=== PATIENT | female | born 1990 | race African-American/Black ===

== ENCOUNTER → 2016-05-09 | Outpatient (CLI) | payer SELFPAY | LOC: MW.CHOBGYN 08:21 | PROVIDERS: ATTEND Nurse Practitioner Women's Health | DX: N92.0 Excessive and frequent menstruation with regular cycle (principal); R63.1 Polydipsia | CPT/HCPCS: 36415; 82947; 83001; 83002; 83036; 84144; 84443; 84703; 85025 ==

== ENCOUNTER 2020-03-23 22:55 | Inpatient (IN) | payer BC ==
[2020-03-23] MEDS ORDERED: Magnesium Sulfate (4.06 MEQ/ML) 5 GM/10 ML SDV IV STA (22:59)
[2020-03-23] MEDS ORDERED: Labetalol 100 MG/20 ML MDV IVPUSH ONE ×3 (23:04→23:56)
--- NOTE | 2020-03-23 23:05 | EDM.PDOC ---
ED HPI GENERAL MEDICAL PROBLEM - General Chief Complaint: Cardiovascular Problem Stated Complaint: HEADACHE Time Seen by Provider: 03/23/20 23:15 - History of Present Illness INITIAL COMMENTS - FREE TEXT/NARRATIVE: History of present illness: [] Review of systems: As per history of present illness and below otherwise all systems reviewed and negative. Past medical history: As per history of present illness and as reviewed below otherwise noncontributory. Having a severe headache at 8 PM tonight. She is vomited many times. Headache is diffuse and sharp and severe. She was seen by Paris Solis in the OB clinic earlier in the day and given what she thinks was nifedipine for high blood pressure. The patient has continued to feel worse since. The patient is 18 weeks . She is a AB 3. Makes her headache worse nothing makes it better. Surgical history: As per history of present illness and as reviewed below otherwise noncontributory. Social history: No reported history of drug or alcohol abuse. Family history: As per history of present illness and as reviewed below otherwise noncontributory. Physical exam: Constitutional - well developed, well-nourished and in no acute distress HEENT -neck is supple with Brudzinski sign negative normocephalic, no evidence of trauma - external nose and mouth normal - no mass in neck and no JVD - mucosae moist EYES -intense photophobia. Full EOM, PERRL, no icterus - no evidence of inflammation, injection, or drainage Respiratory - no respiratory distress, equal bilateral expansion, lungs clear to auscultation and no abnormal lung sounds Cardiovascular - Regular Rhythm with S1 and S2 appreciated and no murmur, gallop or rub. GI - abdomen soft without distension or organomegaly - normal bowel sounds - no guard or rebound Musculoskeletal no gross deformity of long bones or joints - no tenderness, swelling or edema Neurologic -bicep and patellar reflexes are not elevated alert and oriented times four - CN II-XII grossly intact - motor sensory and coordination symmetrically normal Psychiatric - appropriate mood and affect with normal thought content Hematologic - No petechiae or purpura - mucosa appropriate color and sclera not pale - normal nail bed color and refill Integument - no rash or evidence of trauma - normal turgor Diagnostics: From this morning had no protein Therapeutics: [] Impression: [] Plan: [] Definitive disposition and diagnosis as appropriate pending reevaluation and review of above. Head Pain Score (Numeric/FACES): 8 - Related Data Allergies Allergy/AdvReac Type Severity Reaction Status Date / Time No Known Allergies Allergy Verified 03/23/20 22:57 Home Meds: Home Meds NIFEdipine [Procardia] 1 cap PO BID 10/07/17 [History] Vit Calc,Iron,Folic [ Vitamins] 1 tab PO DAILY 10/07/17 [History] Aspirin 81 mg PO DAILY 03/23/20 [History] Past Medical History - Past Health History Medical/Surgical History: Denies Medical/Surgical History HEENT History: Reports: None Cardiovascular History: Reports: None Respiratory History: Reports: None Gastrointestinal History: Reports: None Genitourinary History: Reports: None GATE ATTENDANT History: Reports: None Musculoskeletal History: Reports: None Neurological History: Reports: None Psychiatric History: Reports: None Endocrine/Metabolic History: Reports: Diabetes, Gestational Hematologic History: Reports: None Immunologic History: Reports: None Oncologic (Cancer) History: Reports: None Dermatologic History: Reports: None - Infectious Disease History Infectious Disease History: Reports: None Other Infectious Disease History: HSV-1. HSV-2 - Past Surgical History Head Surgeries/Procedures: Reports: None HEENT Surgical History: Reports: None Cardiovascular Surgical History: Reports: None Female Surgical History: Reports: None Musculoskeletal Surgical History: Reports: None Dermatological Surgical History: Reports: None Social & Family History - Family History Family Medical History: No Pertinent Family History HEENT: Reports: None Cardiac: Reports: None Respiratory: Reports: None GI: Reports: None : Reports: None OBGYN: Reports: Musculoskeletal: Reports: None Psychiatric: Reports: None Oncologic: Reports: None - Caffeine Use Caffeine Use: Reports: None ED ROS GENERAL - Review of Systems Review Of Systems: Comprehensive ROS is negative, except as noted in HPI. ED EXAM, GENERAL - Physical Exam Exam: See Below #1 Interpretation EKG Interpretation Comments: KG done at 11:45 PM sinus rhythm heart rate 87. MS interval 189 QT 473. [place] XX [address] and T normal. No prior. Impression normal. Course - Vital Signs Text/Narrative:: Case discussed with Amelie Robison application technician for OB 2340 hrs. Amelie Robison from OB came and gave us her labetalol and hydralazine protocols. She said OB would not consider her -induced hypertension but an exacerbation of underlying hypertension because of the prematurity at 18 weeks. They would be willing to consult the patient is admitted to medicine. On labetalol protocol the patient would be due for 40 mg IV with a blood pressure 174 however since it came from 217 with 20 mg labetalol I am amending the treatment plan and giving her 20 mg to reassess after such a dose. 2357 hours she did not respond to the 20 mg we will give an additional 20 and then resume the protocol. 0036 After 60 mg labetalol total her BP is 175/113 ( 20% lower than mean BP on presentation) and she is asymptomatic. Discussed with OB Amelie Robison and she said not to continue Magnesium and manage as hypertension with acute exacerbation and emergency. Discussed with Dr. Prado and she most graciously admitted the patient for further evaluation, monitoring and OB follow up. This patient was seen and evaluated during the 2019 SARS-CoV-2 novel coronavirus pandemic period. Community viral transmission is ongoing at time of this encounter and the emergency department is operating under pandemic response procedures. Due to a high probability of clinically significant, life threatening deterioration, the patient required my highest level of preparedness to intervene emergently and I personally spent this critical care time directly and personally managing the patient. This critical care time included obtaining a history; examining the patient; pulse oximetry; ordering and review of studies; arranging urgent treatment with development of a management plan; evaluation of patient's response to treatment; frequent reassessment; and, discussions with other providers. This critical care time was performed to assess and manage the high probability of imminent, life-threatening deterioration that could result in multi-organ failure. It was exclusive of separately billable procedures and treating other patients and teaching time. Total critical care time 38 minutes. Last Recorded V/S: Last Vital Signs Temp 36.3 C 03/23/20 22:58 Pulse 86 03/24/20 00:17 Resp 18 03/24/20 00:17 BP 175/113 H 03/24/20 00:17 Pulse Ox 99 03/24/20 00:17 - Orders/Labs/Meds Orders: Active Orders 24 hr Category Date Time Status EKG 12 Lead [EKG Documentation Completion] [RC] STAT Care 03/23/20 23:30 Active Magnesium Sulfate/Water [Magnesium Sulfate in Water Med 03/23/20 23:15 Active Premix] 2 gm in 50 ml IV Q2H Sodium Chloride 0.9% [Saline Flush] Med 03/23/20 23:12 Active 10 ml FLUSH ASDIRECTED PRN Sodium Chloride 0.9% [Saline Flush] Med 03/23/20 23:12 Active 2.5 ml FLUSH ASDIRECTED PRN Saline Lock Insert [OM.PC] Stat Oth 03/23/20 23:12 Ordered Medication Orders Magnesium Sulfate (Magnesium Sulfate In Water Premix) 2 gm in 50 mls @ 25 mls/hr IV Q2H KEKE Stop: 03/24/20 05:14 Last Admin: 03/23/20 23:25 Dose: 25 mls/hr Documented by: MURDNIC Sodium Chloride (Saline Flush) 10 ml FLUSH ASDIRECTED PRN PRN Reason: Keep Vein Open Last Admin: 03/23/20 23:28 Dose: 10 ml Documented by: MURDNIC Sodium Chloride (Saline Flush) 2.5 ml FLUSH ASDIRECTED PRN PRN Reason: Keep Vein Open Last Admin: 03/23/20 23:28 Dose: 2.5 ml Documented by: JEREMIE Labs: Laboratory Tests 03/23/20 03/23/20 03/23/20 Range/Units 23:03 23:03 23:03 WBC 9.67 (4.0-11.0) K/uL RBC 4.99 (4.30-5.90) M/uL Hgb 11.8 L (12.0-16.0) g/dL Hct 36.1 (36.0-46.0) % MCV 72.3 L (80.0-98.0) fL MCH 23.6 L (27.0-32.0) pg MCHC 32.7 (31.0-37.0) g/dL RDW Std Deviation 40.1 (28.0-62.0) fl RDW Coeff of Patience 15 (11.0-15.0) % Plt Count 247 (150-400) K/uL MPV 10.80 (7.40-12.00) fL Neut % (Auto) 58.5 (48.0-80.0) % Lymph % (Auto) 31.4 (16.0-40.0) % [place] % (Auto) 8.3 (0.0-15.0) % Eos % (Auto) 1.7 (0.0-7.0) % Baso % (Auto) 0.1 (0.0-1.5) % Neut # (Auto) 5.7 (1.4-5.7) K/uL Lymph # (Auto) 3.0 H (0.6-2.4) K/uL [place] # (Auto) 0.8 (0.0-0.8) K/uL Eos # (Auto) 0.2 (0.0-0.7) K/uL Baso # (Auto) 0.0 (0.0-0.1) K/uL Nucleated RBC % 1.1 /100WBC Nucleated RBCs # 0 K/uL Sodium 140 (136-145) mmol/L Potassium 3.5 (3.5-5.1) mmol/L Chloride 105 (98-107) mmol/L Carbon Dioxide 23.4 (21.0-32.0) mmol/L BUN 6 L (7.0-18.0) mg/dL Creatinine 0.6 (0.6-1.0) mg/dL Est Cr Clr Drug Dosing 122.25 mL/min Estimated GFR (MDRD) > 60.0 ml/min Glucose 105 (74-106) mg/dL Calcium 9.1 (8.5-10.1) mg/dL Magnesium 2.0 (1.8-2.4) mg/dL Total Bilirubin 0.2 (0.2-1.0) mg/dL AST 15 (15-37) IU/L ALT 18 (14-63) IU/L Alkaline Phosphatase 71 (46-116) U/L Troponin I < 0.050 (0.000-0.056) ng/mL Total Protein 7.9 (6.4-8.2) g/dL Albumin 3.4 (3.4-5.0) g/dL Globulin 4.5 H (2.6-4.0) g/dL Albumin/Globulin Ratio 0.8 L (0.9-1.6) Urine Color Urine Appearance Urine pH (5.0-8.0) Ur Specific [place] (1.001-1.035) Urine Protein (NEGATIVE) mg/dL Urine Glucose (UA) (NEGATIVE) mg/dL Urine Ketones (NEGATIVE) mg/dL Urine Occult Blood (NEGATIVE) Urine Nitrite (NEGATIVE) Urine Bilirubin (NEGATIVE) Urine Urobilinogen (<2.0) EU/dL Ur Leukocyte Esterase (NEGATIVE) Urine RBC (0-2/HPF) Urine WBC (0-5/HPF) Ur Epithelial Cells (NONE-FEW) Amorphous Sediment (NEGATIVE) Urine Bacteria (NEGATIVE) Urine Mucus (NONE-MOD) SARS-CoV-2 RNA (JUANJO) (NEGATIVE) 03/23/20 03/23/20 Range/Units 23:14 23:31 WBC (4.0-11.0) K/uL RBC (4.30-5.90) M/uL Hgb (12.0-16.0) g/dL Hct (36.0-46.0) % MCV (80.0-98.0) fL MCH (27.0-32.0) pg MCHC (31.0-37.0) g/dL RDW Std Deviation (28.0-62.0) fl RDW Coeff of Patience (11.0-15.0) % Plt Count (150-400) K/uL MPV (7.40-12.00) fL Neut % (Auto) (48.0-80.0) % Lymph % (Auto) (16.0-40.0) % [place] % (Auto) (0.0-15.0) % Eos % (Auto) (0.0-7.0) % Baso % (Auto) (0.0-1.5) % Neut # (Auto) (1.4-5.7) K/uL Lymph # (Auto) (0.6-2.4) K/uL [place] # (Auto) (0.0-0.8) K/uL Eos # (Auto) (0.0-0.7) K/uL Baso # (Auto) (0.0-0.1) K/uL Nucleated RBC % /100WBC Nucleated RBCs # K/uL Sodium (136-145) mmol/L Potassium (3.5-5.1) mmol/L Chloride (98-107) mmol/L Carbon Dioxide (21.0-32.0) mmol/L BUN (7.0-18.0) mg/dL Creatinine (0.6-1.0) mg/dL Est Cr Clr Drug Dosing mL/min Estimated GFR (MDRD) ml/min Glucose (74-106) mg/dL Calcium (8.5-10.1) mg/dL Magnesium (1.8-2.4) mg/dL Total Bilirubin (0.2-1.0) mg/dL AST (15-37) IU/L ALT (14-63) IU/L Alkaline Phosphatase (46-116) U/L Troponin I (0.000-0.056) ng/mL Total Protein (6.4-8.2) g/dL Albumin (3.4-5.0) g/dL Globulin (2.6-4.0) g/dL Albumin/Globulin Ratio (0.9-1.6) Urine Color YELLOW Urine Appearance SLT CLOUDY Urine pH 8.0 (5.0-8.0) Ur Specific [place] 1.025 (1.001-1.035) Urine Protein 30 H (NEGATIVE) mg/dL Urine Glucose (UA) 100 H (NEGATIVE) mg/dL Urine Ketones NEGATIVE (NEGATIVE) mg/dL Urine Occult Blood TRACE-INTACT H (NEGATIVE) Urine Nitrite NEGATIVE (NEGATIVE) Urine Bilirubin NEGATIVE (NEGATIVE) Urine Urobilinogen 0.2 (<2.0) EU/dL Ur Leukocyte Esterase NEGATIVE (NEGATIVE) Urine RBC 2-4 (0-2/HPF) Urine WBC 1-3 (0-5/HPF) Ur Epithelial Cells MODERATE (NONE-FEW) Amorphous Sediment MODERATE (NEGATIVE) Urine Bacteria 4+ H (NEGATIVE) Urine Mucus MODERATE (NONE-MOD) SARS-CoV-2 RNA (JUANJO) NEGATIVE (NEGATIVE) Meds: Medications Generic Name Dose Route Start Last Admin Trade Name Freq PRN Reason Stop Dose Admin Magnesium Sulfate 2 gm in 50 mls @ 25 mls/hr 03/23/20 23:15 03/23/20 23:25 Magnesium Sulfate In Water Premix IV 03/24/20 05:14 25 mls/hr Q2H KEKE Administration Sodium Chloride 10 ml 03/23/20 23:12 03/23/20 23:28 Saline Flush FLUSH 10 ml ASDIRECTED PRN Administration Keep Vein Open Sodium Chloride 2.5 ml 03/23/20 23:12 03/23/20 23:28 Saline Flush FLUSH 2.5 ml ASDIRECTED PRN Administration Keep Vein Open Discontinued Medications Generic Name Dose Route Start Last Admin Trade Name Freq PRN Reason Stop Dose Admin Hydralazine HCl 10 mg 03/23/20 23:13 03/23/20 23:24 Apresoline IVPUSH 03/23/20 23:14 Not Given ONETIME ONE Magnesium Sulfate 5 gm/ Sodium 60 mls @ 24 mls/hr 03/23/20 23:15 Chloride IV ASDIRECTED KEKE 2 GM/HR Labetalol HCl 20 mg 03/23/20 23:04 03/23/20 23:12 Normodyne IVPUSH 03/23/20 23:05 20 mg ONETIME ONE Administration Protocol Labetalol HCl 20 mg 03/23/20 23:39 03/23/20 23:42 Normodyne IVPUSH 03/23/20 23:40 20 mg ONETIME ONE Administration Protocol Labetalol HCl 20 mg 03/23/20 23:56 03/24/20 00:01 Normodyne IVPUSH 03/23/20 23:57 20 mg ONETIME ONE Administration Protocol Metoclopramide HCl 10 mg 03/23/20 23:32 03/23/20 23:42 Reglan IVPUSH 03/23/20 23:33 10 mg ONETIME ONE Administration Departure - Departure Time of Disposition: 00:50 Disposition: Admitted As Inpatient 64 Condition: Good Clinical Impression: Hypertensive emergency, Complication affecting intrauterine Referrals: PCP,None [Primary Care Provider] - Forms: ED Department Discharge Sepsis Event Note (ED) - Focused Exam Vital Signs: Vital Signs Temp Pulse Resp BP Pulse Ox 03/24/20 00:17 86 18 175/113 H 99 03/24/20 00:11 85 16 172/110 H 98 03/23/20 23:55 93 16 179/109 H 99 03/23/20 23:39 88 16 174/111 H 97 03/23/20 23:13 100 20 193/145 H 99 03/23/20 22:58 36.3 C 95 20 219/137 H 99 - My Orders Last 24 Hours: My Active Orders 03/23/20 23:12 Sodium Chloride 0.9% [Saline Flush] 10 ml FLUSH ASDIRECTED PRN Sodium Chloride 0.9% [Saline Flush] 2.5 ml FLUSH ASDIRECTED PRN Saline Lock Insert [OM.PC] Stat 03/23/20 23:15 Magnesium Sulfate/Water [Magnesium Sulfate in Water Premix] 2 gm in 50 ml IV Q2H 03/23/20 23:30 EKG 12 Lead [EKG Documentation Completion] [RC] STAT - Assessment/Plan Last 24 Hours: My Active Orders 03/23/20 23:12 Sodium Chloride 0.9% [Saline Flush] 10 ml FLUSH ASDIRECTED PRN Sodium Chloride 0.9% [Saline Flush] 2.5 ml FLUSH ASDIRECTED PRN Saline Lock Insert [OM.PC] Stat 03/23/20 23:15 Magnesium Sulfate/Water [Magnesium Sulfate in Water Premix] 2 gm in 50 ml IV Q2H 03/23/20 23:30 EKG 12 Lead [EKG Documentation Completion] [RC] STAT
[2020-03-23] MEDS ORDERED: Sodium Chloride 0.9% 2.5 ML Syringe FLUSH PRN (23:12)
[2020-03-23] MEDS ORDERED: Sodium Chloride 0.9% 10 ML Syringe FLUSH PRN (23:12)
[2020-03-23] MEDS ORDERED: hydrALAZINE 20 MG/ML SDV IVPUSH ONE (23:13)
[2020-03-23] MEDS ORDERED: MAGNESIUM SULFATE IV SCH (23:15)
[2020-03-23] MEDS ORDERED: SODIUM CHLORIDE 0.9% IV SCH (23:15)
[2020-03-23] MEDS: Magnesium Sulfate/Water 2 GM/50 ML BAG IV SCH (23:25)
[2020-03-23] MEDS ORDERED: Metoclopramide 10 MG/2 ML SDV IVPUSH ONE (23:32)
[2020-03-23 23:35] LABS: BLOOD UREA NITROGEN,BUN 6 mg/dL (7.0-18.0); CARBON DIOXIDE,CO2 23.4 mmol/L (21.0-32.0); CHLORIDE,CL 105 mmol/L (98-107); GLUCOSE RANDOM 105 mg/dL (74-106); POTASSIUM,K 3.5 mmol/L (3.5-5.1); SODIUM,NA 140 mmol/L (136-145)
--- NOTE | 2020-03-24 00:05 | CR ---
INDICATION: hypertensive emergency, 18 weeks CHEST, ONE VIEW An AP radiograph of the chest was performed. Comparison: No previous studies are currently available for comparison. The lungs appear clear and no pleural effusions are identified. The cardiomediastinal silhouette and pulmonary vasculature appear normal, as do the visualized bones. IMPRESSION: No acute intrathoracic abnormality identified. CRISTIANO MALONE MD [facility] Dictated by: Gerry Malone MD @ 03/24/2020 00:04:00 (Electronically Signed)
[2020-03-24] MEDS ORDERED: Acetaminophen 500 MG Tab PO ONE (01:02)
[2020-03-24] MEDS: Magnesium Sulfate/Water 2 GM/50 ML BAG IV SCH ×2 (01:10→03:46)
[2020-03-24] MEDS ORDERED: Labetalol 100 MG/20 ML MDV IVPUSH PRN (01:34)
[2020-03-24] MEDS ORDERED: Ondansetron 4 MG/2 ML SDV IVPUSH PRN (01:35)
[2020-03-24] MEDS ORDERED: Labetalol 100 MG/20 ML MDV IVPUSH ONE (01:39)
[2020-03-24 06:58] LABS: BLOOD UREA NITROGEN,BUN 6 mg/dL (7.0-18.0); CARBON DIOXIDE,CO2 22.7 mmol/L (21.0-32.0); CHLORIDE,CL 105 mmol/L (98-107); GLUCOSE RANDOM 111 mg/dL (74-106); POTASSIUM,K 3.5 mmol/L (3.5-5.1); SODIUM,NA 139 mmol/L (136-145)
--- NOTE | 2020-03-24 08:24 | PCM.HP.2 ---
H&P History of Present Illness - General Date of Service: 03/24/20 Admit Problem/Dx: Admission Diagnosis/Problem Admission Diagnosis/Problem "Hypertensive disorder, systemic arterial " Source of Information: Patient History Limitations: Reports: No Limitations - History of Present Illness Initial Comments - Free Text/Narative: This 29-year-old female with past medical history of obesity, gestational diabetes and history of preeclampsia with precipitous delivery along with uncontrolled hypertension presented to ER last night with complaints of visual changes and headache. She has been in contact with OB provider as she is 16 weeks . She has been placed on Procardia 90 mg daily along with 81 mg aspirin daily and vitamin. She reports the headache continue to worsen along with visual changes and nausea so she was urged to present to the ER for evaluation. She reports that she does usually have some blood pressure issues mostly with and reports that when she is not she does not have troubles with hypertension. She reports has been having significant stressors at home but unwilling to really indulge if she is going on. Reported she needs to put herself needs prior to others and taking care of herself. She denied any chest pain or shortness of breath no fevers chills neck pain or sinus congestion. She does report frontal headache blurred vision has improved since arrival. She denies any abdominal pain or dysuria. She denies any diarrhea or black or bloody bowel movements. In the ER lab work was essentially normal UA did show some positive blood positive protein 4+ bacteria but the sample appeared to be contaminated, With moderate epithelial cells, negative leukocyte esterase and negative nitrites. No SARAH noted. Drug screen negative Covid swab negative. Chest x-ray negative. EKG sinus rhythm heart rate in the 80s no ST or T wave abnormalities. She was initially treated with bolus of magnesium along with magnesium drip she is given labetalol for blood pressures in excess of 215/110. OB senior property accountant on-call was notified and encouraged them to stop magnesium drip as this was not indicated for a patient under 20 weeks. She was continued to give labetalol which did eventually drop her blood pressure to 170s over 90s. With this headache did improve and she was admitted to the hospitalist service for hypertensive emergency. Head Pain Score (Numeric/FACES): 8 - Related Data Allergies/Adverse Reactions: Allergies Allergy/AdvReac Type Severity Reaction Status Date / Time No Known Allergies Allergy Verified 03/24/20 02:09 Home Medications: Home Meds NIFEdipine [Procardia] 1 cap PO BID 10/07/17 [History] Vit Calc,Iron,Folic [ Vitamins] 1 tab PO DAILY 10/07/17 [History] Aspirin 81 mg PO DAILY 03/23/20 [History] Past Medical History - Past Health History Medical/Surgical History: Denies Medical/Surgical History HEENT History: Reports: None Cardiovascular History: Reports: Hypertension Respiratory History: Reports: None Gastrointestinal History: Reports: None Genitourinary History: Reports: None [employer]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 HSV-2 - Past Surgical History Head Surgeries/Procedures: Reports: None HEENT Surgical History: Reports: None Cardiovascular Surgical History: Reports: None Female Surgical History: Reports: None Musculoskeletal Surgical History: Reports: None Dermatological Surgical History: Reports: None Social & Family History - Family History Family Medical History: No Pertinent Family History HEENT: Reports: None Cardiac: Reports: None Respiratory: Reports: None GI: Reports: None : Reports: None OBGYN: Reports: Musculoskeletal: Reports: None Psychiatric: Reports: None Oncologic: Reports: None - Tobacco Use Tobacco Use Status *Q: Never Tobacco User Tobacco Use Comment: Pt drowsy, falling asleep during admission assessment - Caffeine Use Caffeine Use: Reports: None Caffeine Use Comment: Pt drowsy, falling asleep during admission assessment - Recreational Drug Use Recreational Drug Use: No H&P Review of Systems - Review of Systems: Review Of Systems: See Below General: Reports: No Symptoms. Denies: Fever, Chills, Malaise, Decreased Appetite HEENT: Reports: Headaches (Frontal with intermittent photophobia and blurred vision the blurred vision has improved), Visual Changes (Blurred vision has now improved) Pulmonary: Reports: No Symptoms. Denies: Shortness of Breath Cardiovascular: Reports: No Symptoms. Denies: Chest Pain Gastrointestinal: Reports: No Symptoms. Denies: Abdominal Pain, Black Stool, Bloody Stool, Decreased Appetite, Nausea, Vomiting Genitourinary: Reports: No Symptoms. Denies: Dysuria, Frequency Musculoskeletal: Reports: No Symptoms Skin: Reports: No Symptoms Psychiatric: Reports: No Symptoms Neurological: Reports: No Symptoms Hematologic/Lymphatic: Reports: No Symptoms Immunologic: Reports: No Symptoms Exam - Exam Exam: See Below - Vital Signs Vital Signs: Last Vital Signs Temp 98.3 F 03/24/20 08:18 Pulse 93 03/24/20 08:18 Resp 20 03/24/20 08:18 BP 171/88 H 03/24/20 08:18 Pulse Ox 99 03/24/20 08:18 Weight: 111.811 kg - Exam Quality Assessment: DVT Prophylaxis (SCDs only). No: Supplemental Oxygen General: Alert, Oriented, Cooperative HEENT: Conjunctiva Clear, Mucosa Moist & Enetai, Posterior Pharynx Clear, Pupils Equal, Pupils Reactive Neck: Supple, Trachea Midline Lungs: Clear to Auscultation, Normal Respiratory Effort Cardiovascular: Regular Rate, Regular Rhythm GI/Abdominal Exam: Normal Bowel Sounds, Soft, Non-Tender Extremities: Normal Inspection, Normal Range of Motion, Non-Tender, No Pedal Edema Neuro Extensive - Mental Status: Alert, Oriented x3 Neuro Extensive - Motor, Sensory, Reflexes: CN II-XII Intact Psychiatric: Alert, Normal Affect, Normal Mood - Patient Data Lab Results Last 24 hrs: Laboratory Results - last 24 hr 03/23/20 03/23/20 03/23/20 Range/Units 23:03 23:03 23:03 WBC 9.67 (4.0-11.0) K/uL RBC 4.99 (4.30-5.90) M/uL Hgb 11.8 L (12.0-16.0) g/dL Hct 36.1 (36.0-46.0) % MCV 72.3 L (80.0-98.0) fL MCH 23.6 L (27.0-32.0) pg MCHC 32.7 (31.0-37.0) g/dL RDW Std Deviation 40.1 (28.0-62.0) fl RDW Coeff of Patience 15 (11.0-15.0) % Plt Count 247 (150-400) K/uL MPV 10.80 (7.40-12.00) fL Neut % (Auto) 58.5 (48.0-80.0) % Lymph % (Auto) 31.4 (16.0-40.0) % [place] % (Auto) 8.3 (0.0-15.0) % Eos % (Auto) 1.7 (0.0-7.0) % Baso % (Auto) 0.1 (0.0-1.5) % Neut # (Auto) 5.7 (1.4-5.7) K/uL Lymph # (Auto) 3.0 H (0.6-2.4) K/uL [place] # (Auto) 0.8 (0.0-0.8) K/uL Eos # (Auto) 0.2 (0.0-0.7) K/uL Baso # (Auto) 0.0 (0.0-0.1) K/uL Nucleated RBC % 1.1 /100WBC Nucleated RBCs # 0 K/uL Sodium 140 (136-145) mmol/L Potassium 3.5 (3.5-5.1) mmol/L Chloride 105 (98-107) mmol/L Carbon Dioxide 23.4 (21.0-32.0) mmol/L BUN 6 L (7.0-18.0) mg/dL Creatinine 0.6 (0.6-1.0) mg/dL Est Cr Clr Drug Dosing 122.25 mL/min Estimated GFR (MDRD) > 60.0 ml/min Glucose 105 (74-106) mg/dL Calcium 9.1 (8.5-10.1) mg/dL Phosphorus (2.6-4.7) mg/dL Magnesium 2.0 (1.8-2.4) mg/dL Total Bilirubin 0.2 (0.2-1.0) mg/dL AST 15 (15-37) IU/L ALT 18 (14-63) IU/L Alkaline Phosphatase 71 (46-116) U/L Troponin I < 0.050 (0.000-0.056) ng/mL Total Protein 7.9 (6.4-8.2) g/dL Albumin 3.4 (3.4-5.0) g/dL Globulin 4.5 H (2.6-4.0) g/dL Albumin/Globulin Ratio 0.8 L (0.9-1.6) Triglycerides (0-200) mg/dL Cholesterol (50-200) mg/dL LDL Cholesterol, Calc (60-180) mg/dL VLDL Cholesterol (5-55) mg/dL HDL Cholesterol (40-60) mg/dL Cholesterol/HDL Ratio (3.3-6.0) TSH 3rd Generation (0.36-3.74) uIU/mL Urine Color Urine Appearance Urine pH (5.0-8.0) Ur Specific [place] (1.001-1.035) Urine Protein (NEGATIVE) mg/dL Urine Glucose (UA) (NEGATIVE) mg/dL Urine Ketones (NEGATIVE) mg/dL Urine Occult Blood (NEGATIVE) Urine Nitrite (NEGATIVE) Urine Bilirubin (NEGATIVE) Urine Urobilinogen (<2.0) EU/dL Ur Leukocyte Esterase (NEGATIVE) Urine RBC (0-2/HPF) Urine WBC (0-5/HPF) Ur Epithelial Cells (NONE-FEW) Amorphous Sediment (NEGATIVE) Urine Bacteria (NEGATIVE) Urine Mucus (NONE-MOD) SARS-CoV-2 RNA (JUANJO) (NEGATIVE) 03/23/20 03/23/20 03/24/20 Range/Units 23:14 23:31 05:54 WBC 10.51 (4.0-11.0) K/uL RBC 4.86 (4.30-5.90) M/uL Hgb 11.2 L (12.0-16.0) g/dL Hct 35.5 L (36.0-46.0) % MCV 73.0 L (80.0-98.0) fL MCH 23.0 L (27.0-32.0) pg MCHC 31.5 (31.0-37.0) g/dL RDW Std Deviation 40.4 (28.0-62.0) fl RDW Coeff of Patience 15 (11.0-15.0) % Plt Count 260 (150-400) K/uL MPV 10.70 (7.40-12.00) fL Neut % (Auto) 68.0 (48.0-80.0) % Lymph % (Auto) 24.9 (16.0-40.0) % [place] % (Auto) 6.4 (0.0-15.0) % Eos % (Auto) 0.5 (0.0-7.0) % Baso % (Auto) 0.2 (0.0-1.5) % Neut # (Auto) 7.2 H (1.4-5.7) K/uL Lymph # (Auto) 2.6 H (0.6-2.4) K/uL [place] # (Auto) 0.7 (0.0-0.8) K/uL Eos # (Auto) 0.1 (0.0-0.7) K/uL Baso # (Auto) 0.0 (0.0-0.1) K/uL Nucleated RBC % 0.0 /100WBC Nucleated RBCs # 0 K/uL Sodium (136-145) mmol/L Potassium (3.5-5.1) mmol/L Chloride (98-107) mmol/L Carbon Dioxide (21.0-32.0) mmol/L BUN (7.0-18.0) mg/dL Creatinine (0.6-1.0) mg/dL Est Cr Clr Drug Dosing mL/min Estimated GFR (MDRD) ml/min Glucose (74-106) mg/dL Calcium (8.5-10.1) mg/dL Phosphorus (2.6-4.7) mg/dL Magnesium (1.8-2.4) mg/dL Total Bilirubin (0.2-1.0) mg/dL AST (15-37) IU/L ALT (14-63) IU/L Alkaline Phosphatase (46-116) U/L Troponin I (0.000-0.056) ng/mL Total Protein (6.4-8.2) g/dL Albumin (3.4-5.0) g/dL Globulin (2.6-4.0) g/dL Albumin/Globulin Ratio (0.9-1.6) Triglycerides (0-200) mg/dL Cholesterol (50-200) mg/dL LDL Cholesterol, Calc (60-180) mg/dL VLDL Cholesterol (5-55) mg/dL HDL Cholesterol (40-60) mg/dL Cholesterol/HDL Ratio (3.3-6.0) TSH 3rd Generation (0.36-3.74) uIU/mL Urine Color YELLOW Urine Appearance SLT CLOUDY Urine pH 8.0 (5.0-8.0) Ur Specific [place] 1.025 (1.001-1.035) Urine Protein 30 H (NEGATIVE) mg/dL Urine Glucose (UA) 100 H (NEGATIVE) mg/dL Urine Ketones NEGATIVE (NEGATIVE) mg/dL Urine Occult Blood TRACE-INTACT H (NEGATIVE) Urine Nitrite NEGATIVE (NEGATIVE) Urine Bilirubin NEGATIVE (NEGATIVE) Urine Urobilinogen 0.2 (<2.0) EU/dL Ur Leukocyte Esterase NEGATIVE (NEGATIVE) Urine RBC 2-4 (0-2/HPF) Urine WBC 1-3 (0-5/HPF) Ur Epithelial Cells MODERATE (NONE-FEW) Amorphous Sediment MODERATE (NEGATIVE) Urine Bacteria 4+ H (NEGATIVE) Urine Mucus MODERATE (NONE-MOD) SARS-CoV-2 RNA (JUANJO) NEGATIVE (NEGATIVE) 03/24/20 Range/Units 05:54 WBC (4.0-11.0) K/uL RBC (4.30-5.90) M/uL Hgb (12.0-16.0) g/dL Hct (36.0-46.0) % MCV (80.0-98.0) fL MCH (27.0-32.0) pg MCHC (31.0-37.0) g/dL RDW Std Deviation (28.0-62.0) fl RDW Coeff of Patience (11.0-15.0) % Plt Count (150-400) K/uL MPV (7.40-12.00) fL Neut % (Auto) (48.0-80.0) % Lymph % (Auto) (16.0-40.0) % [place] % (Auto) (0.0-15.0) % Eos % (Auto) (0.0-7.0) % Baso % (Auto) (0.0-1.5) % Neut # (Auto) (1.4-5.7) K/uL Lymph # (Auto) (0.6-2.4) K/uL [place] # (Auto) (0.0-0.8) K/uL Eos # (Auto) (0.0-0.7) K/uL Baso # (Auto) (0.0-0.1) K/uL Nucleated RBC % /100WBC Nucleated RBCs # K/uL Sodium 139 (136-145) mmol/L Potassium 3.5 (3.5-5.1) mmol/L Chloride 105 (98-107) mmol/L Carbon Dioxide 22.7 (21.0-32.0) mmol/L BUN 6 L (7.0-18.0) mg/dL Creatinine 0.6 (0.6-1.0) mg/dL Est Cr Clr Drug Dosing 122.25 mL/min Estimated GFR (MDRD) > 60.0 ml/min Glucose 111 H (74-106) mg/dL Calcium 8.8 (8.5-10.1) mg/dL Phosphorus 3.6 (2.6-4.7) mg/dL Magnesium 3.2 H (1.8-2.4) mg/dL Total Bilirubin (0.2-1.0) mg/dL AST (15-37) IU/L ALT (14-63) IU/L Alkaline Phosphatase (46-116) U/L Troponin I (0.000-0.056) ng/mL Total Protein (6.4-8.2) g/dL Albumin (3.4-5.0) g/dL Globulin (2.6-4.0) g/dL Albumin/Globulin Ratio (0.9-1.6) Triglycerides 50 (0-200) mg/dL Cholesterol 115 (50-200) mg/dL LDL Cholesterol, Calc 42 L (60-180) mg/dL VLDL Cholesterol 10 (5-55) mg/dL HDL Cholesterol 63 H (40-60) mg/dL Cholesterol/HDL Ratio 1.8 L (3.3-6.0) TSH 3rd Generation 3.18 (0.36-3.74) uIU/mL Urine Color Urine Appearance Urine pH (5.0-8.0) Ur Specific [place] (1.001-1.035) Urine Protein (NEGATIVE) mg/dL Urine Glucose (UA) (NEGATIVE) mg/dL Urine Ketones (NEGATIVE) mg/dL Urine Occult Blood (NEGATIVE) Urine Nitrite (NEGATIVE) Urine Bilirubin (NEGATIVE) Urine Urobilinogen (<2.0) EU/dL Ur Leukocyte Esterase (NEGATIVE) Urine RBC (0-2/HPF) Urine WBC (0-5/HPF) Ur Epithelial Cells (NONE-FEW) Amorphous Sediment (NEGATIVE) Urine Bacteria (NEGATIVE) Urine Mucus (NONE-MOD) SARS-CoV-2 RNA (JUANJO) (NEGATIVE) Result Diagrams: 03/24/20 05:54 03/24/20 05:54 Sepsis Event Note - Evaluation Sepsis Screening Result: No Definite Risk - Focused Exam Vital Signs: Vital Signs Temp Pulse Resp BP Pulse Ox Pulse Ox 03/24/20 08:18 98.3 F 93 20 171/88 H 99 03/24/20 05:14 98.4 F 94 16 144/89 H 97 03/24/20 02:00 98.7 F 90 18 142/86 H 97 97 03/24/20 01:46 89 16 174/118 H 99 03/24/20 01:03 88 16 164/101 H 98 03/24/20 00:31 86 18 175/109 H 100 03/24/20 00:17 86 18 175/113 H 99 03/24/20 00:11 85 16 172/110 H 98 03/23/20 23:55 93 16 179/109 H 99 03/23/20 23:39 88 16 174/111 H 97 03/23/20 23:13 100 20 193/145 H 99 03/23/20 22:58 97.4 F 95 20 219/137 H 99 - Problem List (1) Hypertensive emergency SNOMED Code(s): 999289061557850 ICD Code: I16.1 - HYPERTENSIVE EMERGENCY Status: Acute Priority: High Current Visit: Yes (2) Gestational diabetes SNOMED Code(s): 45743543 ICD Code: O24.419 - GESTATIONAL DIABETES MELLITUS IN , UNSP CONTROL Status: Chronic Current Visit: Yes (3) 16 weeks gestation of SNOMED Code(s): 63421191 ICD Code: Z3A.16 - 16 WEEKS GESTATION OF Status: Acute Priority: High Current Visit: Yes (4) Chronic hypertension affecting SNOMED Code(s): 50987639 ICD Code: O10.919 - UNSP PRE-EXISTING HTN COMP , UNSP TRIMESTER Status: Chronic Priority: High Current Visit: Yes (5) Obesity SNOMED Code(s): 944495859, 585198365 ICD Code: E66.9 - OBESITY, UNSPECIFIED Status: Chronic Priority: High Current Visit: Yes Qualifiers: Obesity classification: adult class 3 (BMI >= 40) Serious obesity comorbidity presence: with serious comorbidity Body mass index: BMI 40.0-44.9 Problem List Initiated/Reviewed/Updated: Yes Orders Last 24hrs: Active Orders 24 hr Category Date Time Status Admission Status [Patient Status] [ADT] Stat ADT 03/24/20 00:41 Active Cardiac Monitoring [RC] . DIRECTED Care 03/24/20 00:41 Active EKG 12 Lead [EKG Documentation Completion] [RC] STAT Care 03/23/20 23:30 Active Notify Provider Consults [RC] ASDIRECTED Care 03/24/20 00:44 Active Oxygen Therapy [RC] ASDIRECTED Care 03/24/20 01:33 Active Telemetry Monitoring [Cardiac Monitoring] [RC] Q8H Care 03/24/20 00:35 Active Vital Signs [RC] Q3H Care 03/24/20 01:32 Active Consult to Physician [CONS] Stat Cons 03/24/20 00:42 Active Cardiac [Heart Healthy Diet] [DIET] Diet 03/24/20 Breakfast Active Labetalol [Normodyne] Med 03/24/20 01:34 Active 20 mg IVPUSH Q4H PRN Ondansetron [Zofran] Med 03/24/20 01:35 Active 4 mg IVPUSH Q4H PRN Sodium Chloride 0.9% [Saline Flush] Med 03/23/20 23:12 Active 10 ml FLUSH ASDIRECTED PRN Sodium Chloride 0.9% [Saline Flush] Med 03/23/20 23:12 Active 2.5 ml FLUSH ASDIRECTED PRN Saline Lock Insert [OM.PC] Stat Oth 03/23/20 23:12 Ordered Medication Orders Labetalol HCl (Normodyne) 20 mg IVPUSH Q4H PRN; Protocol PRN Reason: Hypertension Ondansetron HCl (Zofran) 4 mg IVPUSH Q4H PRN PRN Reason: Nausea/Vomiting Sodium Chloride (Saline Flush) 10 ml FLUSH ASDIRECTED PRN PRN Reason: Keep Vein Open Last Admin: 03/23/20 23:28 Dose: 10 ml Documented by: JEREMIE Sodium Chloride (Saline Flush) 2.5 ml FLUSH ASDIRECTED PRN PRN Reason: Keep Vein Open Last Admin: 03/23/20 23:28 Dose: 2.5 ml Documented by: MURROSMERY Assessment/Plan Comment:: This 29-year-old female admitted with hypertensive emergency noted to be 16 5/7 weeks gestation 1. Hypertensive emergency -Treated with labetalol IV in the ER along with magnesium -OB on-call Amelie Robison senior property accountant was consulted along with Dr. Red. We appreciate their assistance with this patient -Start labetalol 200 mg twice daily orally and monitor blood pressure and symptoms -Labetalol as needed IV for blood pressures greater than 160/110 -Restart aspirin 81 mg daily -Tylenol for headache may also consider Fioricet if migraine. 2. , 16 5/7 weeks gestation -Orders per OB providers -Start collecting 24-hour urine for protein detection 3. UTI -First sample appeared to be contaminated, second sample much improved -Macrobid per OB -We will continue to monitor VTE prophylaxis: SCDs CODE STATUS; full code Dispo; 1 to 2 days depending on improvement.
[2020-03-24] MEDS: Labetalol 100 MG Tab PO SCH ×2 (09:00→21:15)
[2020-03-24] MEDS ORDERED: NIFEdipine 10 MG Cap PO SCH (09:00)
--- NOTE | 2020-03-24 10:05 | PCM.CONS ---
H&P History of Present Illness - General Date of Service: 03/23/20 (2600) Admit Problem/Dx: Admission Diagnosis/Problem Admission Diagnosis/Problem "Hypertensive disorder, systemic arterial " Ob-Natural Resource Technician consult from ED was conducted 03/23/2020 at ~ 2320 regarding care of the following patient: Dayana is a 29 yo 103 at 16+5 weeks gestation (NI(LMP) 09/02/2020) that presents to ED this evening (03/23/2020) with C/O BRAMBILA, visual changes, nausea, and severe range blood pressures of 210s/130s. Denied movement, appropriate for gestation. Denied LOF, uterine pain, james vaginal bleeding. O pos, Ab screen neg, RI, GBS unkown. Pertinent medical history includes: morbid obesity (pre- BMI 40.3), pre-diabetes, H/O GDM, H/O pre-eclampsia with precipitous delivery, uncontrolled CHTN, at 35+ wks gestation, HSV1, HSV2. NKDA. Medications: PNV daily, 90 mg procardia daily, 81 mg aspirin daily, valacyclvir PRN for outbreaks. Patient was seen in clinic earlier today for F/U regarding CHTN control. BPs 160s/100s with C/O H/A and some abdominal pain at that time. Over current course, patient recurrently directed to ED for assessment and emergent control of severe range BPs, but patient declined ED visits due to financial and socioeconomic strain. Dr. Red consulted, regimen was increased from 60mg to 90 mg procardia at that time. Initial labs completed 02/10/2020 and 02/24/2020. All baseline labs WNL and unremarkable except notable proteinuria consistent with CHTN. Hgb 11.6; Hct 36.6; Platelets 265; UA neg; random glucose 69; A1c 5.9 GFR >60; random urine protein 19.9; serum creatinine 0.7; BUN 8; AST 10; ALT 21; Alk Phos 62; UDS neg. 24-hr baseline urine protein ordered 02/24/2020, but not completed. Baseline EKG was planned for F/U visit. Anatomy US scheduled for 04/20/2020 at 11 am. Upon CNM presentation to ED, 6 gram magnesium sulfate bolus was already administered, BPs still in severe range per MD. All labs WNL and unremarkable except notable proteinuria consistent with , CHTN, obesity, and pre- diabetes. Hgb 11.8; Hct 36.1; Platelets 247;random glucose 105; GFR >60; serum creatinine 0.6; BUN 6; AST 15; ALT 18. UA + bacteria, + blood, + protein indicating new onset UTI in . UDS neg. Source of Information: Other (Consulted ED MD) Head Pain Score (Numeric/FACES): 5 - Related Data Allergies/Adverse Reactions: Allergies Allergy/AdvReac Type Severity Reaction Status Date / Time No Known Allergies Allergy Verified 03/24/20 02:09 Home Medications: Home Meds NIFEdipine [Procardia] 1 cap PO BID 10/07/17 [History] Vit Calc,Iron,Folic [ Vitamins] 1 tab PO DAILY 10/07/17 [History] Aspirin 81 mg PO DAILY 03/23/20 [History] Past Medical History - Past Health History Medical/Surgical History: Denies Medical/Surgical History HEENT History: Reports: None Cardiovascular History: Reports: Hypertension Respiratory History: Reports: None Gastrointestinal History: Reports: None Genitourinary History: Reports: None POWDERER History: Reports: Musculoskeletal History: Reports: None Neurological History: Reports: None Psychiatric History: Reports: None Endocrine/Metabolic History: Reports: Diabetes, Gestational Hematologic History: Reports: None Immunologic History: Reports: None Oncologic (Cancer) History: Reports: None Dermatologic History: Reports: None - Infectious Disease History Infectious Disease History: Reports: None Other Infectious Disease History: HSV-1. HSV-2 - Past Surgical History Head Surgeries/Procedures: Reports: None HEENT Surgical History: Reports: None Cardiovascular Surgical History: Reports: None Female Surgical History: Reports: None Musculoskeletal Surgical History: Reports: None Dermatological Surgical History: Reports: None Social & Family History - Family History Family Medical History: No Pertinent Family History HEENT: Reports: None Cardiac: Reports: None Respiratory: Reports: None GI: Reports: None : Reports: None OBGYN: Reports: Musculoskeletal: Reports: None Psychiatric: Reports: None Oncologic: Reports: None - Tobacco Use Tobacco Use Status *Q: Never Tobacco User Tobacco Use Comment: Pt drowsy, falling asleep during admission assessment - Caffeine Use Caffeine Use: Reports: None Caffeine Use Comment: Pt drowsy, falling asleep during admission assessment - Recreational Drug Use Recreational Drug Use: No H&P Review of Systems - Review of Systems: Review Of Systems: Comprehensive ROS is negative, except as noted in HPI. General: Reports: No Symptoms HEENT: Reports: No Symptoms Pulmonary: Reports: No Symptoms Cardiovascular: Reports: No Symptoms Gastrointestinal: Reports: No Symptoms Genitourinary: Reports: No Symptoms Musculoskeletal: Reports: No Symptoms Skin: Reports: No Symptoms Psychiatric: Reports: No Symptoms Neurological: Reports: No Symptoms Hematologic/Lymphatic: Reports: No Symptoms Immunologic: Reports: No Symptoms Exam - Exam Exam: Not Obtained - Vital Signs Vital Signs: Last Vital Signs Temp 98.3 F 03/24/20 08:18 Pulse 93 03/24/20 09:00 Resp 20 03/24/20 08:18 BP 171/88 H 03/24/20 09:00 Pulse Ox 99 03/24/20 08:18 Weight: 246 lb 8 oz - Patient Data Lab Results Last 24 hrs: Laboratory Results - last 24 hr 03/23/20 03/23/20 03/23/20 Range/Units 23:03 23:03 23:03 WBC 9.67 (4.0-11.0) K/uL RBC 4.99 (4.30-5.90) M/uL Hgb 11.8 L (12.0-16.0) g/dL Hct 36.1 (36.0-46.0) % MCV 72.3 L (80.0-98.0) fL MCH 23.6 L (27.0-32.0) pg MCHC 32.7 (31.0-37.0) g/dL RDW Std Deviation 40.1 (28.0-62.0) fl RDW Coeff of Patience 15 (11.0-15.0) % Plt Count 247 (150-400) K/uL MPV 10.80 (7.40-12.00) fL Neut % (Auto) 58.5 (48.0-80.0) % Lymph % (Auto) 31.4 (16.0-40.0) % [place] % (Auto) 8.3 (0.0-15.0) % Eos % (Auto) 1.7 (0.0-7.0) % Baso % (Auto) 0.1 (0.0-1.5) % Neut # (Auto) 5.7 (1.4-5.7) K/uL Lymph # (Auto) 3.0 H (0.6-2.4) K/uL [place] # (Auto) 0.8 (0.0-0.8) K/uL Eos # (Auto) 0.2 (0.0-0.7) K/uL Baso # (Auto) 0.0 (0.0-0.1) K/uL Nucleated RBC % 1.1 /100WBC Nucleated RBCs # 0 K/uL Sodium 140 (136-145) mmol/L Potassium 3.5 (3.5-5.1) mmol/L Chloride 105 (98-107) mmol/L Carbon Dioxide 23.4 (21.0-32.0) mmol/L BUN 6 L (7.0-18.0) mg/dL Creatinine 0.6 (0.6-1.0) mg/dL Est Cr Clr Drug Dosing 122.25 mL/min Estimated GFR (MDRD) > 60.0 ml/min Glucose 105 (74-106) mg/dL Calcium 9.1 (8.5-10.1) mg/dL Phosphorus (2.6-4.7) mg/dL Magnesium 2.0 (1.8-2.4) mg/dL Total Bilirubin 0.2 (0.2-1.0) mg/dL AST 15 (15-37) IU/L ALT 18 (14-63) IU/L Alkaline Phosphatase 71 (46-116) U/L Troponin I < 0.050 (0.000-0.056) ng/mL Total Protein 7.9 (6.4-8.2) g/dL Albumin 3.4 (3.4-5.0) g/dL Globulin 4.5 H (2.6-4.0) g/dL Albumin/Globulin Ratio 0.8 L (0.9-1.6) Triglycerides (0-200) mg/dL Cholesterol (50-200) mg/dL LDL Cholesterol, Calc (60-180) mg/dL VLDL Cholesterol (5-55) mg/dL HDL Cholesterol (40-60) mg/dL Cholesterol/HDL Ratio (3.3-6.0) TSH 3rd Generation (0.36-3.74) uIU/mL Urine Color Urine Appearance Urine pH (5.0-8.0) Ur Specific [place] (1.001-1.035) Urine Protein (NEGATIVE) mg/dL Urine Glucose (UA) (NEGATIVE) mg/dL Urine Ketones (NEGATIVE) mg/dL Urine Occult Blood (NEGATIVE) Urine Nitrite (NEGATIVE) Urine Bilirubin (NEGATIVE) Urine Urobilinogen (<2.0) EU/dL Ur Leukocyte Esterase (NEGATIVE) Urine RBC (0-2/HPF) Urine WBC (0-5/HPF) Ur Epithelial Cells (NONE-FEW) Amorphous Sediment (NEGATIVE) Urine Bacteria (NEGATIVE) Urine Mucus (NONE-MOD) Urine Opiates Screen (NEGATIVE) Ur Oxycodone Screen (NEGATIVE) Urine Methadone Screen (NEGATIVE) Ur Barbiturates Screen (NEGATIVE) Ur Phencyclidine Scrn (NEGATIVE) Ur Amphetamine Screen (NEGATIVE) U Methamphetamines Scrn (NEGATIVE) U Benzodiazepines Scrn (NEGATIVE) U Cocaine Metab Screen (NEGATIVE) U Marijuana (THC) Screen (NEGATIVE) SARS-CoV-2 RNA (JUANJO) (NEGATIVE) 03/23/20 03/23/20 03/23/20 Range/Units 23:14 23:14 23:31 WBC (4.0-11.0) K/uL RBC (4.30-5.90) M/uL Hgb (12.0-16.0) g/dL Hct (36.0-46.0) % MCV (80.0-98.0) fL MCH (27.0-32.0) pg MCHC (31.0-37.0) g/dL RDW Std Deviation (28.0-62.0) fl RDW Coeff of Patience (11.0-15.0) % Plt Count (150-400) K/uL MPV (7.40-12.00) fL Neut % (Auto) (48.0-80.0) % Lymph % (Auto) (16.0-40.0) % [place] % (Auto) (0.0-15.0) % Eos % (Auto) (0.0-7.0) % Baso % (Auto) (0.0-1.5) % Neut # (Auto) (1.4-5.7) K/uL Lymph # (Auto) (0.6-2.4) K/uL [place] # (Auto) (0.0-0.8) K/uL Eos # (Auto) (0.0-0.7) K/uL Baso # (Auto) (0.0-0.1) K/uL Nucleated RBC % /100WBC Nucleated RBCs # K/uL Sodium (136-145) mmol/L Potassium (3.5-5.1) mmol/L Chloride (98-107) mmol/L Carbon Dioxide (21.0-32.0) mmol/L BUN (7.0-18.0) mg/dL Creatinine (0.6-1.0) mg/dL Est Cr Clr Drug Dosing mL/min Estimated GFR (MDRD) ml/min Glucose (74-106) mg/dL Calcium (8.5-10.1) mg/dL Phosphorus (2.6-4.7) mg/dL Magnesium (1.8-2.4) mg/dL Total Bilirubin (0.2-1.0) mg/dL AST (15-37) IU/L ALT (14-63) IU/L Alkaline Phosphatase (46-116) U/L Troponin I (0.000-0.056) ng/mL Total Protein (6.4-8.2) g/dL Albumin (3.4-5.0) g/dL Globulin (2.6-4.0) g/dL Albumin/Globulin Ratio (0.9-1.6) Triglycerides (0-200) mg/dL Cholesterol (50-200) mg/dL LDL Cholesterol, Calc (60-180) mg/dL VLDL Cholesterol (5-55) mg/dL HDL Cholesterol (40-60) mg/dL Cholesterol/HDL Ratio (3.3-6.0) TSH 3rd Generation (0.36-3.74) uIU/mL Urine Color YELLOW Urine Appearance SLT CLOUDY Urine pH 8.0 (5.0-8.0) Ur Specific [place] 1.025 (1.001-1.035) Urine Protein 30 H (NEGATIVE) mg/dL Urine Glucose (UA) 100 H (NEGATIVE) mg/dL Urine Ketones NEGATIVE (NEGATIVE) mg/dL Urine Occult Blood TRACE-INTACT H (NEGATIVE) Urine Nitrite NEGATIVE (NEGATIVE) Urine Bilirubin NEGATIVE (NEGATIVE) Urine Urobilinogen 0.2 (<2.0) EU/dL Ur Leukocyte Esterase NEGATIVE (NEGATIVE) Urine RBC 2-4 (0-2/HPF) Urine WBC 1-3 (0-5/HPF) Ur Epithelial Cells MODERATE (NONE-FEW) Amorphous Sediment MODERATE (NEGATIVE) Urine Bacteria 4+ H (NEGATIVE) Urine Mucus MODERATE (NONE-MOD) Urine Opiates Screen NEGATIVE (NEGATIVE) Ur Oxycodone Screen NEGATIVE (NEGATIVE) Urine Methadone Screen NEGATIVE (NEGATIVE) Ur Barbiturates Screen NEGATIVE (NEGATIVE) Ur Phencyclidine Scrn NEGATIVE (NEGATIVE) Ur Amphetamine Screen NEGATIVE (NEGATIVE) U Methamphetamines Scrn NEGATIVE (NEGATIVE) U Benzodiazepines Scrn NEGATIVE (NEGATIVE) U Cocaine Metab Screen NEGATIVE (NEGATIVE) U Marijuana (THC) Screen NEGATIVE (NEGATIVE) SARS-CoV-2 RNA (JUANJO) NEGATIVE (NEGATIVE) 03/24/20 03/24/20 Range/Units 05:54 05:54 WBC 10.51 (4.0-11.0) K/uL RBC 4.86 (4.30-5.90) M/uL Hgb 11.2 L (12.0-16.0) g/dL Hct 35.5 L (36.0-46.0) % MCV 73.0 L (80.0-98.0) fL MCH 23.0 L (27.0-32.0) pg MCHC 31.5 (31.0-37.0) g/dL RDW Std Deviation 40.4 (28.0-62.0) fl RDW Coeff of Patience 15 (11.0-15.0) % Plt Count 260 (150-400) K/uL MPV 10.70 (7.40-12.00) fL Neut % (Auto) 68.0 (48.0-80.0) % Lymph % (Auto) 24.9 (16.0-40.0) % [place] % (Auto) 6.4 (0.0-15.0) % Eos % (Auto) 0.5 (0.0-7.0) % Baso % (Auto) 0.2 (0.0-1.5) % Neut # (Auto) 7.2 H (1.4-5.7) K/uL Lymph # (Auto) 2.6 H (0.6-2.4) K/uL [place] # (Auto) 0.7 (0.0-0.8) K/uL Eos # (Auto) 0.1 (0.0-0.7) K/uL Baso # (Auto) 0.0 (0.0-0.1) K/uL Nucleated RBC % 0.0 /100WBC Nucleated RBCs # 0 K/uL Sodium 139 (136-145) mmol/L Potassium 3.5 (3.5-5.1) mmol/L Chloride 105 (98-107) mmol/L Carbon Dioxide 22.7 (21.0-32.0) mmol/L BUN 6 L (7.0-18.0) mg/dL Creatinine 0.6 (0.6-1.0) mg/dL Est Cr Clr Drug Dosing 122.25 mL/min Estimated GFR (MDRD) > 60.0 ml/min Glucose 111 H (74-106) mg/dL Calcium 8.8 (8.5-10.1) mg/dL Phosphorus 3.6 (2.6-4.7) mg/dL Magnesium 3.2 H (1.8-2.4) mg/dL Total Bilirubin (0.2-1.0) mg/dL AST (15-37) IU/L ALT (14-63) IU/L Alkaline Phosphatase (46-116) U/L Troponin I (0.000-0.056) ng/mL Total Protein (6.4-8.2) g/dL Albumin (3.4-5.0) g/dL Globulin (2.6-4.0) g/dL Albumin/Globulin Ratio (0.9-1.6) Triglycerides 50 (0-200) mg/dL Cholesterol 115 (50-200) mg/dL LDL Cholesterol, Calc 42 L (60-180) mg/dL VLDL Cholesterol 10 (5-55) mg/dL HDL Cholesterol 63 H (40-60) mg/dL Cholesterol/HDL Ratio 1.8 L (3.3-6.0) TSH 3rd Generation 3.18 (0.36-3.74) uIU/mL Urine Color Urine Appearance Urine pH (5.0-8.0) Ur Specific [place] (1.001-1.035) Urine Protein (NEGATIVE) mg/dL Urine Glucose (UA) (NEGATIVE) mg/dL Urine Ketones (NEGATIVE) mg/dL Urine Occult Blood (NEGATIVE) Urine Nitrite (NEGATIVE) Urine Bilirubin (NEGATIVE) Urine Urobilinogen (<2.0) EU/dL Ur Leukocyte Esterase (NEGATIVE) Urine RBC (0-2/HPF) Urine WBC (0-5/HPF) Ur Epithelial Cells (NONE-FEW) Amorphous Sediment (NEGATIVE) Urine Bacteria (NEGATIVE) Urine Mucus (NONE-MOD) Urine Opiates Screen (NEGATIVE) Ur Oxycodone Screen (NEGATIVE) Urine Methadone Screen (NEGATIVE) Ur Barbiturates Screen (NEGATIVE) Ur Phencyclidine Scrn (NEGATIVE) Ur Amphetamine Screen (NEGATIVE) U Methamphetamines Scrn (NEGATIVE) U Benzodiazepines Scrn (NEGATIVE) U Cocaine Metab Screen (NEGATIVE) U Marijuana (THC) Screen (NEGATIVE) SARS-CoV-2 RNA (JUANJO) (NEGATIVE) Result Diagrams: 03/24/20 05:54 03/24/20 05:54 Sepsis Event Note - Evaluation Sepsis Screening Result: No Definite Risk - Focused Exam Vital Signs: Vital Signs Temp Pulse Pulse Resp BP BP Pulse Ox 03/24/20 09:00 93 171/88 H 03/24/20 08:18 98.3 F 93 20 171/88 H 99 03/24/20 05:14 98.4 F 94 16 144/89 H 97 03/24/20 02:00 98.7 F 90 18 142/86 H 97 03/24/20 01:46 89 16 174/118 H 99 03/24/20 01:03 88 16 164/101 H 98 03/24/20 00:31 86 18 175/109 H 100 03/24/20 00:17 86 18 175/113 H 99 03/24/20 00:11 85 16 172/110 H 98 03/23/20 23:55 93 16 179/109 H 99 03/23/20 23:39 88 16 174/111 H 97 03/23/20 23:13 100 20 193/145 H 99 03/23/20 22:58 97.4 F 95 20 219/137 H 99 Pulse Ox 03/24/20 09:00 03/24/20 08:18 03/24/20 05:14 03/24/20 02:00 97 03/24/20 01:46 03/24/20 01:03 03/24/20 00:31 03/24/20 00:17 03/24/20 00:11 03/23/20 23:55 03/23/20 23:39 03/23/20 23:13 03/23/20 22:58 Consult PN Assessment/Plan Procedures: Procedures ALANINE AMINO (ALT) (SGPT) (11/04/17) ASSAY GLUCOSE BLOOD QUANT (05/09/16) ASSAY OF BLOOD/URIC ACID (11/04/17) ASSAY OF CREATININE (11/04/17) ASSAY OF GONADOTROPIN (FSH) (05/09/16) ASSAY OF GONADOTROPIN (LH) (05/09/16) ASSAY OF PROGESTERONE (05/09/16) ASSAY OF PROTEIN URINE (02/10/20) ASSAY OF UREA NITROGEN (11/04/17) ASSAY OF URINE CREATININE (02/10/20) ASSAY THYROID STIM HORMONE (05/09/16) BLOOD TYPING SEROLOGIC ABO (02/24/20) BLOOD TYPING SEROLOGIC RH(D) (02/24/20) CHORIONIC GONADOTROPIN ASSAY (05/09/16) CHORIONIC GONADOTROPIN TEST (04/15/17) CHYLMD TRACH DNA AMP PROBE (02/24/20) COMPLETE CBC AUTOMATED (02/24/20) COMPLETE CBC W/AUTO DIFF WBC (11/04/17) COMPREHEN METABOLIC PANEL (02/10/20) CULTURE SCREEN ONLY (10/28/17) DRUG TEST PRSMV DIR OPT OBS (02/24/20) BIOPHYS PROFIL W/O NST (10/28/17) NON-STRESS TEST (11/04/17) GLUCOSE BLOOD TEST (07/21/15) GLUCOSE TEST (06/19/17) GLUCOSE TOLERANCE TEST (GTT) (06/23/17) GLYCOSYLATED HEMOGLOBIN TEST (02/24/20) HEPATITIS B SURFACE AG IA (02/24/20) HEPATITIS C AB TEST (02/24/20) HERPES SIMPLEX ROXY ANTBDY (06/19/17) HERPES SIMPLEX TYPE 1 TEST (06/19/17) HERPES SIMPLEX TYPE 2 TEST (06/19/17) HIV-1 AG W/HIV-1 & -2 AB AG IA (06/19/17) LACTATE (LD) (LDH) ENZYME (11/04/17) N.GONORRHOEAE DNA AMP PROB (02/24/20) OB US < 14 WKS SINGLE FETUS (04/18/17) OB US >/= 14 WKS SNGL FETUS (08/05/17) OB US FOLLOW-UP PER FETUS (09/01/17) RBC ANTIBODY SCREEN (02/24/20) ROUTINE VENIPUNCTURE (02/10/20) RUBELLA ANTIBODY (02/24/20) SARS-COV-2 COVID-19 AMP PRB (10/29/19) SMEAR WET [place] SALINE/INK (07/21/15) SYPHILIS TEST NON-TREP QUAL (02/24/20) THER/PROPH/DIAG INJ SC/IM (07/21/15) THER/PROPH/DIAG IV INF INIT (07/21/15) TRANSFERASE (AST) (SGOT) (11/04/17) TRANSVAGINAL US OBSTETRIC (08/05/17) URINALYSIS AUTO W/O SCOPE (10/03/17) URINALYSIS AUTO W/SCOPE (07/21/15) URINE CULTURE/COLONY COUNT (06/19/17) (1) Hypertensive emergency SNOMED Code(s): 175203777373471 Code(s): I16.1 - HYPERTENSIVE EMERGENCY Priority: High Current Visit: Yes (2) Chronic hypertension affecting SNOMED Code(s): 16036638 Code(s): O10.919 - UNSP PRE-EXISTING HTN COMP , UNSP TRIMESTER Priority: High Current Visit: Yes (3) 16 weeks gestation of SNOMED Code(s): 66447186 Code(s): Z3A.16 - 16 WEEKS GESTATION OF Priority: High Current Visit: Yes (4) UTI (urinary tract infection) during SNOMED Code(s): 499934503 Code(s): O23.40 - UNSP INFECTION OF URINARY TRACT IN , UNSP TRIMESTER Priority: High Current Visit: Yes Qualifiers: Trimester: second trimester Qualified Code(s): O23.42 - Unspecified infection of urinary tract in , second trimester (5) Obesity SNOMED Code(s): 027422795, 712274352 Code(s): E66.9 - OBESITY, UNSPECIFIED Priority: High Current Visit: Yes Qualifiers: Obesity classification: adult class 3 (BMI >= 40) Serious obesity comorbidity presence: with serious comorbidity Body mass index: BMI 40.0-44.9 Problem List Initiated/Reviewed/Updated: Yes Plan: VS unstable, afebrile. Symptomatic hypertensive emergency affecting second trimester (16+ wks) . 6 gram magnesium sulfate bolus completed with 2 gram/hr maintenance infusing prior to consultation. Recommend discontinuing m agnesium sulfate therapy as it is not indicated at this time in gestation (<20 weeks), hypertensive emergency due to chronic uncontrolled hypertension exacerbation. IV labetolol regimen recommended now to obtain BPs <160s/110s. Recommended admission inpatient until patient becomes hemodynamically stable and oral labetolol regimen is found to be effective in management of CHTN. Dr. Red notified and agreeable with POC. ED MD also agreeable.
--- NOTE | 2020-03-24 11:23 | PCM.CONSN ---
- General Info Date of Service: 03/24/20 Admission Dx/Problem (Free Text): Admission Diagnosis/Problem Admission Diagnosis/Problem "Hypertensive disorder, systemic arterial " Dayana is a 29 yo 103 at 16+5 weeks gestation (NI(LMP) 09/02/2020) that was admitted inpatient from the ED last night for hypertensive emergency (C/O BRAMBILA, visual changes, nausea, and severe range blood pressures of 210s/130s). Denies movement, appropriate for gestation. Denies LOF, uterine pain, james vaginal bleeding. O pos, Ab screen neg, RI, GBS unkown. Pertinent medical history includes: morbid obesity (pre- BMI 40.3), pre-diabetes, H/O GDM, H/O pre-eclampsia with precipitous delivery, uncontrolled CHTN, at 35+ wks gestation, HSV1, HSV2. NKDA. Medications: PNV daily, 90 mg procardia daily, 81 mg aspirin daily, valacyclvir PRN for outbreaks. BPs stabilized with IV labetolol, 140s/90s this am. Repeat labs today unremarkable for gestation, no marked change indicating organ involvement: Hgb 11.2; Hct 35.5; Platelets 260; GFR >60; serum creatinine 0.6; BUN 6. Lipid panel unremarkable. UA + bacteria, + blood, + protein indicating new onset UTI in . UDS neg. 12-lead EKG ordered, report in progress. Patient C/O mild-moderate persistent BRAMBILA today, but reports visual changes, nausea and abdominal pain have resolved at this time. Patient reports she considered termination early this , but "I couldn't go through with it." Denies ingestion of substances, denies attempts to abort at home. Reports she feels safe at home with partner, no concerns with abuse at this. Reports marked financial and emotional strain, thus reluctance to seek care for CHTN or report to ED per office recommendations prior to today. "Last night really scared me, I think I just need to let go and focus on my health." Functional Status: Reports: Pain Controlled, Tolerating Diet, Ambulating, Urinating - Review of Systems General: Reports: No Symptoms HEENT: Reports: No Symptoms Pulmonary: Reports: No Symptoms Cardiovascular: Reports: No Symptoms Gastrointestinal: Reports: No Symptoms Genitourinary: Reports: No Symptoms Musculoskeletal: Reports: No Symptoms Skin: Reports: No Symptoms Neurological: Reports: No Symptoms Psychiatric: Reports: No Symptoms - Patient Data Vitals - Most Recent: Last Vital Signs Temp 99.2 F 03/24/20 11:00 Pulse 88 03/24/20 11:00 Resp 16 03/24/20 11:00 BP 148/85 H 03/24/20 11:00 Pulse Ox 99 03/24/20 11:00 Weight - Most Recent: 246 lb 8 oz I&O - Last 24 Hours: Intake & Output 03/23/20 03/24/20 03/24/20 22:59 06:59 14:59 Intake Total 0 Output Total 0 Balance 0 Lab Results Last 24 Hours: Laboratory Results - last 24 hr 03/23/20 03/23/20 03/23/20 Range/Units 23:03 23:03 23:03 WBC 9.67 (4.0-11.0) K/uL RBC 4.99 (4.30-5.90) M/uL Hgb 11.8 L (12.0-16.0) g/dL Hct 36.1 (36.0-46.0) % MCV 72.3 L (80.0-98.0) fL MCH 23.6 L (27.0-32.0) pg MCHC 32.7 (31.0-37.0) g/dL RDW Std Deviation 40.1 (28.0-62.0) fl RDW Coeff of Patience 15 (11.0-15.0) % Plt Count 247 (150-400) K/uL MPV 10.80 (7.40-12.00) fL Neut % (Auto) 58.5 (48.0-80.0) % Lymph % (Auto) 31.4 (16.0-40.0) % [place] % (Auto) 8.3 (0.0-15.0) % Eos % (Auto) 1.7 (0.0-7.0) % Baso % (Auto) 0.1 (0.0-1.5) % Neut # (Auto) 5.7 (1.4-5.7) K/uL Lymph # (Auto) 3.0 H (0.6-2.4) K/uL [place] # (Auto) 0.8 (0.0-0.8) K/uL Eos # (Auto) 0.2 (0.0-0.7) K/uL Baso # (Auto) 0.0 (0.0-0.1) K/uL Nucleated RBC % 1.1 /100WBC Nucleated RBCs # 0 K/uL Sodium 140 (136-145) mmol/L Potassium 3.5 (3.5-5.1) mmol/L Chloride 105 (98-107) mmol/L Carbon Dioxide 23.4 (21.0-32.0) mmol/L BUN 6 L (7.0-18.0) mg/dL Creatinine 0.6 (0.6-1.0) mg/dL Est Cr Clr Drug Dosing 122.25 mL/min Estimated GFR (MDRD) > 60.0 ml/min Glucose 105 (74-106) mg/dL Calcium 9.1 (8.5-10.1) mg/dL Phosphorus (2.6-4.7) mg/dL Magnesium 2.0 (1.8-2.4) mg/dL Total Bilirubin 0.2 (0.2-1.0) mg/dL AST 15 (15-37) IU/L ALT 18 (14-63) IU/L Alkaline Phosphatase 71 (46-116) U/L Troponin I < 0.050 (0.000-0.056) ng/mL Total Protein 7.9 (6.4-8.2) g/dL Albumin 3.4 (3.4-5.0) g/dL Globulin 4.5 H (2.6-4.0) g/dL Albumin/Globulin Ratio 0.8 L (0.9-1.6) Triglycerides (0-200) mg/dL Cholesterol (50-200) mg/dL LDL Cholesterol, Calc (60-180) mg/dL VLDL Cholesterol (5-55) mg/dL HDL Cholesterol (40-60) mg/dL Cholesterol/HDL Ratio (3.3-6.0) TSH 3rd Generation (0.36-3.74) uIU/mL Urine Color Urine Appearance Urine pH (5.0-8.0) Ur Specific [place] (1.001-1.035) Urine Protein (NEGATIVE) mg/dL Urine Glucose (UA) (NEGATIVE) mg/dL Urine Ketones (NEGATIVE) mg/dL Urine Occult Blood (NEGATIVE) Urine Nitrite (NEGATIVE) Urine Bilirubin (NEGATIVE) Urine Urobilinogen (<2.0) EU/dL Ur Leukocyte Esterase (NEGATIVE) Urine RBC (0-2/HPF) Urine WBC (0-5/HPF) Ur Epithelial Cells (NONE-FEW) Amorphous Sediment (NEGATIVE) Urine Bacteria (NEGATIVE) Urine Mucus (NONE-MOD) Urine Opiates Screen (NEGATIVE) Ur Oxycodone Screen (NEGATIVE) Urine Methadone Screen (NEGATIVE) Ur Barbiturates Screen (NEGATIVE) Ur Phencyclidine Scrn (NEGATIVE) Ur Amphetamine Screen (NEGATIVE) U Methamphetamines Scrn (NEGATIVE) U Benzodiazepines Scrn (NEGATIVE) U Cocaine Metab Screen (NEGATIVE) U Marijuana (THC) Screen (NEGATIVE) SARS-CoV-2 RNA (JUANJO) (NEGATIVE) 03/23/20 03/23/20 03/23/20 Range/Units 23:14 23:14 23:31 WBC (4.0-11.0) K/uL RBC (4.30-5.90) M/uL Hgb (12.0-16.0) g/dL Hct (36.0-46.0) % MCV (80.0-98.0) fL MCH (27.0-32.0) pg MCHC (31.0-37.0) g/dL RDW Std Deviation (28.0-62.0) fl RDW Coeff of Patience (11.0-15.0) % Plt Count (150-400) K/uL MPV (7.40-12.00) fL Neut % (Auto) (48.0-80.0) % Lymph % (Auto) (16.0-40.0) % [place] % (Auto) (0.0-15.0) % Eos % (Auto) (0.0-7.0) % Baso % (Auto) (0.0-1.5) % Neut # (Auto) (1.4-5.7) K/uL Lymph # (Auto) (0.6-2.4) K/uL [place] # (Auto) (0.0-0.8) K/uL Eos # (Auto) (0.0-0.7) K/uL Baso # (Auto) (0.0-0.1) K/uL Nucleated RBC % /100WBC Nucleated RBCs # K/uL Sodium (136-145) mmol/L Potassium (3.5-5.1) mmol/L Chloride (98-107) mmol/L Carbon Dioxide (21.0-32.0) mmol/L BUN (7.0-18.0) mg/dL Creatinine (0.6-1.0) mg/dL Est Cr Clr Drug Dosing mL/min Estimated GFR (MDRD) ml/min Glucose (74-106) mg/dL Calcium (8.5-10.1) mg/dL Phosphorus (2.6-4.7) mg/dL Magnesium (1.8-2.4) mg/dL Total Bilirubin (0.2-1.0) mg/dL AST (15-37) IU/L ALT (14-63) IU/L Alkaline Phosphatase (46-116) U/L Troponin I (0.000-0.056) ng/mL Total Protein (6.4-8.2) g/dL Albumin (3.4-5.0) g/dL Globulin (2.6-4.0) g/dL Albumin/Globulin Ratio (0.9-1.6) Triglycerides (0-200) mg/dL Cholesterol (50-200) mg/dL LDL Cholesterol, Calc (60-180) mg/dL VLDL Cholesterol (5-55) mg/dL HDL Cholesterol (40-60) mg/dL Cholesterol/HDL Ratio (3.3-6.0) TSH 3rd Generation (0.36-3.74) uIU/mL Urine Color YELLOW Urine Appearance SLT CLOUDY Urine pH 8.0 (5.0-8.0) Ur Specific [place] 1.025 (1.001-1.035) Urine Protein 30 H (NEGATIVE) mg/dL Urine Glucose (UA) 100 H (NEGATIVE) mg/dL Urine Ketones NEGATIVE (NEGATIVE) mg/dL Urine Occult Blood TRACE-INTACT H (NEGATIVE) Urine Nitrite NEGATIVE (NEGATIVE) Urine Bilirubin NEGATIVE (NEGATIVE) Urine Urobilinogen 0.2 (<2.0) EU/dL Ur Leukocyte Esterase NEGATIVE (NEGATIVE) Urine RBC 2-4 (0-2/HPF) Urine WBC 1-3 (0-5/HPF) Ur Epithelial Cells MODERATE (NONE-FEW) Amorphous Sediment MODERATE (NEGATIVE) Urine Bacteria 4+ H (NEGATIVE) Urine Mucus MODERATE (NONE-MOD) Urine Opiates Screen NEGATIVE (NEGATIVE) Ur Oxycodone Screen NEGATIVE (NEGATIVE) Urine Methadone Screen NEGATIVE (NEGATIVE) Ur Barbiturates Screen NEGATIVE (NEGATIVE) Ur Phencyclidine Scrn NEGATIVE (NEGATIVE) Ur Amphetamine Screen NEGATIVE (NEGATIVE) U Methamphetamines Scrn NEGATIVE (NEGATIVE) U Benzodiazepines Scrn NEGATIVE (NEGATIVE) U Cocaine Metab Screen NEGATIVE (NEGATIVE) U Marijuana (THC) Screen NEGATIVE (NEGATIVE) SARS-CoV-2 RNA ([place]) NEGATIVE (NEGATIVE) 03/24/20 03/24/20 Range/Units 05:54 05:54 WBC 10.51 (4.0-11.0) K/uL RBC 4.86 (4.30-5.90) M/uL Hgb 11.2 L (12.0-16.0) g/dL Hct 35.5 L (36.0-46.0) % MCV 73.0 L (80.0-98.0) fL MCH 23.0 L (27.0-32.0) pg MCHC 31.5 (31.0-37.0) g/dL RDW Std Deviation 40.4 (28.0-62.0) fl RDW Coeff of Patience 15 (11.0-15.0) % Plt Count 260 (150-400) K/uL MPV 10.70 (7.40-12.00) fL Neut % (Auto) 68.0 (48.0-80.0) % Lymph % (Auto) 24.9 (16.0-40.0) % [place] % (Auto) 6.4 (0.0-15.0) % Eos % (Auto) 0.5 (0.0-7.0) % Baso % (Auto) 0.2 (0.0-1.5) % Neut # (Auto) 7.2 H (1.4-5.7) K/uL Lymph # (Auto) 2.6 H (0.6-2.4) K/uL [place] # (Auto) 0.7 (0.0-0.8) K/uL Eos # (Auto) 0.1 (0.0-0.7) K/uL Baso # (Auto) 0.0 (0.0-0.1) K/uL Nucleated RBC % 0.0 /100WBC Nucleated RBCs # 0 K/uL Sodium 139 (136-145) mmol/L Potassium 3.5 (3.5-5.1) mmol/L Chloride 105 (98-107) mmol/L Carbon Dioxide 22.7 (21.0-32.0) mmol/L BUN 6 L (7.0-18.0) mg/dL Creatinine 0.6 (0.6-1.0) mg/dL Est Cr Clr Drug Dosing 122.25 mL/min Estimated GFR (MDRD) > 60.0 ml/min Glucose 111 H (74-106) mg/dL Calcium 8.8 (8.5-10.1) mg/dL Phosphorus 3.6 (2.6-4.7) mg/dL Magnesium 3.2 H (1.8-2.4) mg/dL Total Bilirubin (0.2-1.0) mg/dL AST (15-37) IU/L ALT (14-63) IU/L Alkaline Phosphatase (46-116) U/L Troponin I (0.000-0.056) ng/mL Total Protein (6.4-8.2) g/dL Albumin (3.4-5.0) g/dL Globulin (2.6-4.0) g/dL Albumin/Globulin Ratio (0.9-1.6) Triglycerides 50 (0-200) mg/dL Cholesterol 115 (50-200) mg/dL LDL Cholesterol, Calc 42 L (60-180) mg/dL VLDL Cholesterol 10 (5-55) mg/dL HDL Cholesterol 63 H (40-60) mg/dL Cholesterol/HDL Ratio 1.8 L (3.3-6.0) TSH 3rd Generation 3.18 (0.36-3.74) uIU/mL Urine Color Urine Appearance Urine pH (5.0-8.0) Ur Specific [place] (1.001-1.035) Urine Protein (NEGATIVE) mg/dL Urine Glucose (UA) (NEGATIVE) mg/dL Urine Ketones (NEGATIVE) mg/dL Urine Occult Blood (NEGATIVE) Urine Nitrite (NEGATIVE) Urine Bilirubin (NEGATIVE) Urine Urobilinogen (<2.0) EU/dL Ur Leukocyte Esterase (NEGATIVE) Urine RBC (0-2/HPF) Urine WBC (0-5/HPF) Ur Epithelial Cells (NONE-FEW) Amorphous Sediment (NEGATIVE) Urine Bacteria (NEGATIVE) Urine Mucus (NONE-MOD) Urine Opiates Screen (NEGATIVE) Ur Oxycodone Screen (NEGATIVE) Urine Methadone Screen (NEGATIVE) Ur Barbiturates Screen (NEGATIVE) Ur Phencyclidine Scrn (NEGATIVE) Ur Amphetamine Screen (NEGATIVE) U Methamphetamines Scrn (NEGATIVE) U Benzodiazepines Scrn (NEGATIVE) U Cocaine Metab Screen (NEGATIVE) U Marijuana (THC) Screen (NEGATIVE) SARS-CoV-2 RNA ([place]) (NEGATIVE) Med Orders - Current: Current Medications Labetalol HCl (Normodyne) 20 mg IVPUSH Q4H PRN PRN Reason: Hypertension Labetalol HCl (Normodyne) 200 mg PO BID [facility] Last Admin: 03/24/20 09:00 Dose: 200 mg Documented by: Ondansetron HCl (Zofran) 4 mg IVPUSH Q4H PRN PRN Reason: Nausea/Vomiting Vit Calc, Iron,Folic [ Vitamins] 1 each PO DAILY [facility] Sodium Chloride (Saline Flush) 2.5 ml FLUSH ASDIRECTED PRN PRN Reason: Keep Vein Open Last Admin: 03/23/20 23:28 Dose: 2.5 ml Documented by: Discontinued Medications Acetaminophen (Tylenol Extra Strength) 1,000 mg PO ONETIME ONE Stop: 03/24/20 01:03 Last Admin: 03/24/20 01:07 Dose: 1,000 mg Documented by: Hydralazine HCl (Apresoline) 10 mg IVPUSH ONETIME ONE Stop: 03/23/20 23:14 Last Admin: 03/23/20 23:24 Dose: Not Given Documented by: Magnesium Sulfate 5 gm/ Sodium (Chloride) 60 mls @ 24 mls/hr IV ASDIRECTED KEKE Magnesium Sulfate (Magnesium Sulfate In Water Premix) 2 gm in 50 mls @ 25 mls/hr IV Q2H [facility] Stop: 03/24/20 05:14 Last Admin: 03/24/20 03:46 Dose: 25 mls/hr Documented by: Labetalol HCl (Normodyne) 20 mg IVPUSH ONETIME ONE; Protocol Stop: 03/23/20 23:05 Last Admin: 03/23/20 23:12 Dose: 20 mg Documented by: Labetalol HCl (Normodyne) 20 mg IVPUSH ONETIME ONE; Protocol Stop: 03/23/20 23:40 Last Admin: 03/23/20 23:42 Dose: 20 mg Documented by: Labetalol HCl (Normodyne) 20 mg IVPUSH ONETIME ONE; Protocol Stop: 03/23/20 23:57 Last Admin: 03/24/20 00:01 Dose: 20 mg Documented by: Labetalol HCl (Normodyne) 20 mg IVPUSH ONETIME ONE; Protocol Stop: 03/24/20 01:40 Last Admin: 03/24/20 02:00 Dose: Not Given Documented by: Metoclopramide HCl (Reglan) 10 mg IVPUSH ONETIME ONE Stop: 03/23/20 23:33 Last Admin: 03/23/20 23:42 Dose: 10 mg Documented by: Nifedipine (Procardia) mg PO BID KEKE Sodium Chloride (Saline Flush) 10 ml FLUSH ASDIRECTED PRN PRN Reason: Keep Vein Open Last Admin: 03/23/20 23:28 Dose: 10 ml Documented by: - Exam General: Alert, Oriented, Cooperative, No Acute Distress HEENT: Pupils Equal, Pupils Reactive, Mucous Membr. Moist/[place] Neck: Supple Lungs: Clear to Auscultation, Normal Respiratory Effort Cardiovascular: Regular Rate, Regular Rhythm GI/Abdominal Exam: Normal Bowel Sounds, Soft, Non-Tender, No Organomegaly, No Distention (Female) Exam: Enlarged Uterus (U-2, marked abdominal girth re: body habitus noted.), Heart Tones (145 via handheld doppler) Back Exam: Normal Inspection, Full Range of Motion Extremities: Normal Inspection, Normal Range of Motion, Non-Tender, No Pedal Edema, Normal Capillary Refill Skin: Warm, Dry, Intact Neurological: No New Focal Deficit Psy/Mental Status: Alert, Normal Affect, Normal Mood Sepsis Event Note - Evaluation Sepsis Screening Result: No Definite Risk - Focused Exam Vital Signs: Vital Signs Temp Pulse Pulse Resp BP BP Pulse Ox 03/24/20 11:00 99.2 F 88 16 148/85 H 99 03/24/20 09:00 93 171/88 H 03/24/20 08:18 98.3 F 93 20 171/88 H 99 03/24/20 05:14 98.4 F 94 16 144/89 H 97 03/24/20 02:00 98.7 F 90 18 142/86 H 97 03/24/20 01:46 89 16 174/118 H 99 03/24/20 01:03 88 16 164/101 H 98 03/24/20 00:31 86 18 175/109 H 100 03/24/20 00:17 86 18 175/113 H 99 03/24/20 00:11 85 16 172/110 H 98 03/23/20 23:55 93 16 179/109 H 99 03/23/20 23:39 88 16 174/111 H 97 Pulse Ox 03/24/20 11:00 03/24/20 09:00 03/24/20 08:18 03/24/20 05:14 03/24/20 02:00 97 03/24/20 01:46 03/24/20 01:03 03/24/20 00:31 03/24/20 00:17 03/24/20 00:11 03/23/20 23:55 03/23/20 23:39 Consult PN Assessment/Plan Procedures: Procedures ALANINE AMINO (ALT) (SGPT) (11/04/17) ASSAY GLUCOSE BLOOD QUANT (05/09/16) ASSAY OF BLOOD/URIC ACID (11/04/17) ASSAY OF CREATININE (11/04/17) ASSAY OF GONADOTROPIN (FSH) (05/09/16) ASSAY OF GONADOTROPIN (LH) (05/09/16) ASSAY OF PROGESTERONE (05/09/16) ASSAY OF PROTEIN URINE (02/10/20) ASSAY OF UREA NITROGEN (11/04/17) ASSAY OF URINE CREATININE (02/10/20) ASSAY THYROID STIM HORMONE (05/09/16) BLOOD TYPING SEROLOGIC ABO (02/24/20) BLOOD TYPING SEROLOGIC RH(D) (02/24/20) CHORIONIC GONADOTROPIN ASSAY (05/09/16) CHORIONIC GONADOTROPIN TEST (04/15/17) CHYLMD TRACH DNA AMP PROBE (02/24/20) COMPLETE CBC AUTOMATED (02/24/20) COMPLETE CBC W/AUTO DIFF WBC (11/04/17) COMPREHEN METABOLIC PANEL (02/10/20) CULTURE SCREEN ONLY (10/28/17) DRUG TEST PRSMV DIR OPT OBS (02/24/20) BIOPHYS PROFIL W/O NST (10/28/17) NON-STRESS TEST (11/04/17) GLUCOSE BLOOD TEST (07/21/15) GLUCOSE TEST (06/19/17) GLUCOSE TOLERANCE TEST (GTT) (06/23/17) GLYCOSYLATED HEMOGLOBIN TEST (02/24/20) HEPATITIS B SURFACE AG IA (02/24/20) HEPATITIS C AB TEST (02/24/20) HERPES SIMPLEX ROXY ANTBDY (06/19/17) HERPES SIMPLEX TYPE 1 TEST (06/19/17) HERPES SIMPLEX TYPE 2 TEST (06/19/17) HIV-1 AG W/HIV-1 & -2 AB AG IA (06/19/17) LACTATE (LD) (LDH) ENZYME (11/04/17) N.GONORRHOEAE DNA AMP PROB (02/24/20) OB US < 14 WKS SINGLE FETUS (04/18/17) OB US >/= 14 WKS SNGL FETUS (08/05/17) OB US FOLLOW-UP PER FETUS (09/01/17) RBC ANTIBODY SCREEN (02/24/20) ROUTINE VENIPUNCTURE (02/10/20) RUBELLA ANTIBODY (02/24/20) SARS-COV-2 COVID-19 AMP PRB (10/29/19) SMEAR WET [place] SALINE/INK (07/21/15) SYPHILIS TEST NON-TREP QUAL (02/24/20) THER/PROPH/DIAG INJ SC/IM (07/21/15) THER/PROPH/DIAG IV INF INIT (07/21/15) TRANSFERASE (AST) (SGOT) (11/04/17) TRANSVAGINAL US OBSTETRIC (08/05/17) URINALYSIS AUTO W/O SCOPE (10/03/17) URINALYSIS AUTO W/SCOPE (07/21/15) URINE CULTURE/COLONY COUNT (06/19/17) (1) Hypertensive emergency SNOMED Code(s): 306318425554597 Code(s): I16.1 - HYPERTENSIVE EMERGENCY Priority: High Current Visit: Yes (2) Chronic hypertension affecting SNOMED Code(s): 71724181 Code(s): O10.919 - UNSP PRE-EXISTING HTN COMP , UNSP TRIMESTER Priority: High Current Visit: Yes (3) 16 weeks gestation of SNOMED Code(s): 64165663 Code(s): Z3A.16 - 16 WEEKS GESTATION OF Priority: High Current Visit: Yes (4) UTI (urinary tract infection) during SNOMED Code(s): 458879518 Code(s): O23.40 - UNSP INFECTION OF URINARY TRACT IN , UNSP TRIMESTER Priority: High Current Visit: Yes Qualifiers: Trimester: second trimester Qualified Code(s): O23.42 - Unspecified infection of urinary tract in , second trimester (5) Obesity SNOMED Code(s): 200443277, 974192344 Code(s): E66.9 - OBESITY, UNSPECIFIED Priority: High Current Visit: Yes Qualifiers: Obesity classification: adult class 3 (BMI >= 40) Serious obesity comorbidity presence: with serious comorbidity Body mass index: BMI 40.0-44.9 Problem List Initiated/Reviewed/Updated: Yes Plan: VSS, afebrile. Physical exam unremarkable, FHTs 145 via handheld doppler. CHTN affecting second trimester (16+ wks) . Discussed PO labetolol regimen with on-call SENIOR CATEGORY MANAGER, plan to start 200 mg labetolol PO BID in patient to obtain PO hypertension management, Dr. Red agreeable with POC. Continue PO acetaminophen 1000 mg to treat BRAMBILA. Continue 81 mg aspirin daily re: CHTN, obesity in . Start 100 mg macrobid BID x 7 days to treat UTI. Plan for pastoral consult and social science research assistant consult for marked financial and emotional strain, patient desires and agreeable with POC.
[2020-03-24 11:37] LABS: HEMOGLOBIN A1C 5.9 %
[2020-03-24] MEDS ORDERED: Acetaminophen 325 MG Tab PO PRN (12:54)
[2020-03-24] MEDS: Prenatal Multivitamin and Multimineral with Iron Tab PO SCH (14:41)
[2020-03-24] MEDS: Aspirin 81 MG Tab.Chew PO SCH (14:41)
[2020-03-24] MEDS: Nitrofurantoin Monohydrate/Macrocrystalline 100 MG Cap PO SCH ×2 (14:42→21:16)
[2020-03-24] MEDS: PRENATAL VIT CALC IRON FOLIC PO SCH (15:49)
[2020-03-25 06:55] LABS: BLOOD UREA NITROGEN,BUN 10 mg/dL (7.0-18.0); CARBON DIOXIDE,CO2 25.1 mmol/L (21.0-32.0); CHLORIDE,CL 105 mmol/L (98-107); GLUCOSE RANDOM 92 mg/dL (74-106); POTASSIUM,K 3.6 mmol/L (3.5-5.1); SODIUM,NA 138 mmol/L (136-145)
--- NOTE | 2020-03-25 08:59 | PCM.CONSN ---
- General Info Date of Service: 03/25/20 Admission Dx/Problem (Free Text): Admission Diagnosis/Problem Admission Diagnosis/Problem "Hypertensive disorder, systemic arterial " Subjective Update: Patient is improved since yesterday. She denies headache or pain. Vital signs stable. BPs overnight 150s/80s. Most recent was 134/80. FHT by handheld doppler 147. Physical exam unremarkable. Denies movement at this time; gestionally appropriate. NO concerns/questions at this time. Functional Status: Reports: Pain Controlled - Review of Systems General: Reports: No Symptoms HEENT: Reports: No Symptoms Pulmonary: Reports: No Symptoms Cardiovascular: Reports: No Symptoms Gastrointestinal: Reports: No Symptoms Genitourinary: Reports: No Symptoms Musculoskeletal: Reports: No Symptoms Skin: Reports: No Symptoms Neurological: Reports: No Symptoms Psychiatric: Reports: No Symptoms - Patient Data Vitals - Most Recent: Last Vital Signs Temp 98.3 F 03/25/20 07:20 Pulse 74 03/25/20 07:20 Resp 18 03/25/20 07:20 BP 134/80 03/25/20 07:20 Pulse Ox 98 03/25/20 07:20 Weight - Most Recent: 246 lb 8 oz I&O - Last 24 Hours: Intake & Output 03/24/20 03/25/20 03/25/20 22:59 06:59 14:59 Intake Total 1000 738 Output Total 900 500 Balance 100 238 Lab Results Last 24 Hours: Laboratory Results - last 24 hr 03/23/20 03/24/20 03/24/20 Range/Units 23:14 05:54 13:15 WBC (4.0-11.0) K/uL RBC (4.30-5.90) M/uL Hgb (12.0-16.0) g/dL Hct (36.0-46.0) % MCV (80.0-98.0) fL MCH (27.0-32.0) pg MCHC (31.0-37.0) g/dL RDW Std Deviation (28.0-62.0) fl RDW Coeff of Patience (11.0-15.0) % Plt Count (150-400) K/uL MPV (7.40-12.00) fL Add Manual Diff Neutrophils % (Manual) (48.0-80.0) % Lymphocytes % (Manual) (16.0-40.0) % Monocytes % (Manual) (0.0-15.0) % Eosinophils % (Manual) (0.0-7.0) % Nucleated RBC % /100WBC Absolute Seg Neuts (1.4-5.7) Lymphocytes # (Manual) (0.6-2.4) Monocytes # (Manual) (0.0-0.8) Eosinophils # (Manual) (0.0-0.7) Nucleated RBCs # K/uL Sodium (136-145) mmol/L Potassium (3.5-5.1) mmol/L Chloride (98-107) mmol/L Carbon Dioxide (21.0-32.0) mmol/L BUN (7.0-18.0) mg/dL Creatinine (0.6-1.0) mg/dL Est Cr Clr Drug Dosing mL/min Estimated GFR (MDRD) ml/min Glucose (74-106) mg/dL Hemoglobin A1c 5.9 (4.5 - 6.2) % Calcium (8.5-10.1) mg/dL Total Bilirubin (0.2-1.0) mg/dL AST (15-37) IU/L ALT (14-63) IU/L Alkaline Phosphatase (46-116) U/L Total Protein (6.4-8.2) g/dL Albumin (3.4-5.0) g/dL Globulin (2.6-4.0) g/dL Albumin/Globulin Ratio (0.9-1.6) Urine Color YELLOW Urine Appearance CLEAR Urine pH 7.5 (5.0-8.0) Ur Specific [place] 1.015 (1.001-1.035) Urine Protein NEGATIVE (NEGATIVE) mg/dL Urine Glucose (UA) 100 H (NEGATIVE) mg/dL Urine Ketones NEGATIVE (NEGATIVE) mg/dL Urine Occult Blood NEGATIVE (NEGATIVE) Urine Nitrite NEGATIVE (NEGATIVE) Urine Bilirubin NEGATIVE (NEGATIVE) Urine Urobilinogen 0.2 (<2.0) EU/dL Ur Leukocyte Esterase NEGATIVE (NEGATIVE) Urine Opiates Screen NEGATIVE (NEGATIVE) Ur Oxycodone Screen NEGATIVE (NEGATIVE) Urine Methadone Screen NEGATIVE (NEGATIVE) Ur Barbiturates Screen NEGATIVE (NEGATIVE) Ur Phencyclidine Scrn NEGATIVE (NEGATIVE) Ur Amphetamine Screen NEGATIVE (NEGATIVE) U Methamphetamines Scrn NEGATIVE (NEGATIVE) U Benzodiazepines Scrn NEGATIVE (NEGATIVE) U Cocaine Metab Screen NEGATIVE (NEGATIVE) U Marijuana (THC) Screen NEGATIVE (NEGATIVE) 03/25/20 03/25/20 Range/Units 06:03 06:03 WBC 10.99 (4.0-11.0) K/uL RBC 4.70 (4.30-5.90) M/uL Hgb 10.9 L (12.0-16.0) g/dL Hct 34.6 L (36.0-46.0) % MCV 73.6 L (80.0-98.0) fL MCH 23.2 L (27.0-32.0) pg MCHC 31.5 (31.0-37.0) g/dL RDW Std Deviation 40.7 (28.0-62.0) fl RDW Coeff of Patience 15 (11.0-15.0) % Plt Count 234 (150-400) K/uL MPV 10.10 (7.40-12.00) fL Add Manual Diff YES Neutrophils % (Manual) 58 (48.0-80.0) % Lymphocytes % (Manual) 35 (16.0-40.0) % Monocytes % (Manual) 6 (0.0-15.0) % Eosinophils % (Manual) 1 (0.0-7.0) % Nucleated RBC % 0.0 /100WBC Absolute Seg Neuts 6.4 H (1.4-5.7) Lymphocytes # (Manual) 3.8 H (0.6-2.4) Monocytes # (Manual) 0.7 (0.0-0.8) Eosinophils # (Manual) 0.1 (0.0-0.7) Nucleated RBCs # 0 K/uL Sodium 138 (136-145) mmol/L Potassium 3.6 (3.5-5.1) mmol/L Chloride 105 (98-107) mmol/L Carbon Dioxide 25.1 (21.0-32.0) mmol/L BUN 10 (7.0-18.0) mg/dL Creatinine 0.6 (0.6-1.0) mg/dL Est Cr Clr Drug Dosing 122.25 mL/min Estimated GFR (MDRD) > 60.0 ml/min Glucose 92 (74-106) mg/dL Hemoglobin A1c (4.5 - 6.2) % Calcium 9.0 (8.5-10.1) mg/dL Total Bilirubin 0.3 (0.2-1.0) mg/dL AST 8 L (15-37) IU/L ALT 19 (14-63) IU/L Alkaline Phosphatase 58 (46-116) U/L Total Protein 7.0 (6.4-8.2) g/dL Albumin 2.9 L (3.4-5.0) g/dL Globulin 4.1 H (2.6-4.0) g/dL Albumin/Globulin Ratio 0.7 L (0.9-1.6) Urine Color Urine Appearance Urine pH (5.0-8.0) Ur Specific [place] (1.001-1.035) Urine Protein (NEGATIVE) mg/dL Urine Glucose (UA) (NEGATIVE) mg/dL Urine Ketones (NEGATIVE) mg/dL Urine Occult Blood (NEGATIVE) Urine Nitrite (NEGATIVE) Urine Bilirubin (NEGATIVE) Urine Urobilinogen (<2.0) EU/dL Ur Leukocyte Esterase (NEGATIVE) Urine Opiates Screen (NEGATIVE) Ur Oxycodone Screen (NEGATIVE) Urine Methadone Screen (NEGATIVE) Ur Barbiturates Screen (NEGATIVE) Ur Phencyclidine Scrn (NEGATIVE) Ur Amphetamine Screen (NEGATIVE) U Methamphetamines Scrn (NEGATIVE) U Benzodiazepines Scrn (NEGATIVE) U Cocaine Metab Screen (NEGATIVE) U Marijuana (THC) Screen (NEGATIVE) Med Orders - Current: Current Medications Acetaminophen (Tylenol) 650 mg PO Q4H PRN PRN Reason: Pain (Mild 1-3)/fever Aspirin (Aspirin) 81 mg PO DAILY [facility] Last Admin: 03/24/20 14:41 Dose: 81 mg Documented by: Labetalol HCl (Normodyne) 20 mg IVPUSH Q4H PRN PRN Reason: SBP>160/110 Labetalol HCl (Normodyne) 200 mg PO BID [facility] Last Admin: 03/24/20 21:15 Dose: 200 mg Documented by: Nitrofurantoin Macrocrystals (Macrobid) 100 mg PO BID [facility] Stop: 03/31/20 14:16 Last Admin: 03/24/20 21:16 Dose: 100 mg Documented by: Ondansetron HCl (Zofran) 4 mg IVPUSH Q4H PRN PRN Reason: Nausea/Vomiting Vit Calc, Iron,Folic [ Vitamins] 1 each PO DAILY [facility] Last Admin: 03/24/20 15:49 Dose: Not Given Documented by: Prenat Multivit/Programmer Operator Numerical Control/Iron/Folic Ac ( Mtr) 1 each PO DAILY [facility] Last Admin: 03/24/20 14:41 Dose: 1 each Documented by: Sodium Chloride (Saline Flush) 2.5 ml FLUSH ASDIRECTED PRN PRN Reason: Keep Vein Open Last Admin: 03/23/20 23:28 Dose: 2.5 ml Documented by: Discontinued Medications Acetaminophen (Tylenol Extra Strength) 1,000 mg PO ONETIME ONE Stop: 03/24/20 01:03 Last Admin: 03/24/20 01:07 Dose: 1,000 mg Documented by: Hydralazine HCl (Apresoline) 10 mg IVPUSH ONETIME ONE Stop: 03/23/20 23:14 Last Admin: 03/23/20 23:24 Dose: Not Given Documented by: Magnesium Sulfate 5 gm/ Sodium (Chloride) 60 mls @ 24 mls/hr IV ASDIRECTED [facility] Magnesium Sulfate (Magnesium Sulfate In Water Premix) 2 gm in 50 mls @ 25 mls/hr IV Q2H [facility] Stop: 03/24/20 05:14 Last Admin: 03/24/20 03:46 Dose: 25 mls/hr Documented by: Labetalol HCl (Normodyne) 20 mg IVPUSH ONETIME ONE; Protocol Stop: 03/23/20 23:05 Last Admin: 03/23/20 23:12 Dose: 20 mg Documented by: Labetalol HCl (Normodyne) 20 mg IVPUSH ONETIME ONE; Protocol Stop: 03/23/20 23:40 Last Admin: 03/23/20 23:42 Dose: 20 mg Documented by: Labetalol HCl (Normodyne) 20 mg IVPUSH ONETIME ONE; Protocol Stop: 03/23/20 23:57 Last Admin: 03/24/20 00:01 Dose: 20 mg Documented by: Labetalol HCl (Normodyne) 20 mg IVPUSH ONETIME ONE; Protocol Stop: 03/24/20 01:40 Last Admin: 03/24/20 02:00 Dose: Not Given Documented by: Metoclopramide HCl (Reglan) 10 mg IVPUSH ONETIME ONE Stop: 03/23/20 23:33 Last Admin: 03/23/20 23:42 Dose: 10 mg Documented by: Nifedipine (Procardia) mg PO BID [facility] Sodium Chloride (Saline Flush) 10 ml FLUSH ASDIRECTED PRN PRN Reason: Keep Vein Open Last Admin: 03/23/20 23:28 Dose: 10 ml Documented by: - Exam General: Alert, Oriented, Cooperative, No Acute Distress Lungs: Clear to Auscultation, Normal Respiratory Effort Cardiovascular: Regular Rate, Regular Rhythm GI/Abdominal Exam: Soft, Non-Tender (Female) Exam: Deferred Back Exam: Normal Inspection, Full Range of Motion Extremities: Normal Inspection, Normal Range of Motion, Non-Tender, Normal Capillary Refill Skin: Warm, Dry, Intact Neurological: No New Focal Deficit, Normal Speech, Normal Tone, Sensation Intact Psy/Mental Status: Alert, Normal Affect, Normal Mood Sepsis Event Note - Evaluation Sepsis Screening Result: No Definite Risk - Focused Exam Vital Signs: Vital Signs Temp Pulse Pulse Resp BP BP Pulse Ox 03/25/20 07:20 98.3 F 74 18 134/80 98 03/25/20 04:00 97.9 F 86 18 151/88 H 97 03/25/20 00:00 98.3 F 82 16 150/84 H 100 03/24/20 21:15 81 164/113 H Consult PN Assessment/Plan Procedures: Procedures ALANINE AMINO (ALT) (SGPT) (11/04/17) ASSAY GLUCOSE BLOOD QUANT (05/09/16) ASSAY OF BLOOD/URIC ACID (11/04/17) ASSAY OF CREATININE (11/04/17) ASSAY OF GONADOTROPIN (FSH) (05/09/16) ASSAY OF GONADOTROPIN (LH) (05/09/16) ASSAY OF PROGESTERONE (05/09/16) ASSAY OF PROTEIN URINE (02/10/20) ASSAY OF UREA NITROGEN (11/04/17) ASSAY OF URINE CREATININE (02/10/20) ASSAY THYROID STIM HORMONE (05/09/16) BLOOD TYPING SEROLOGIC ABO (02/24/20) BLOOD TYPING SEROLOGIC RH(D) (02/24/20) CHORIONIC GONADOTROPIN ASSAY (05/09/16) CHORIONIC GONADOTROPIN TEST (04/15/17) CHYLMD TRACH DNA AMP PROBE (02/24/20) COMPLETE CBC AUTOMATED (02/24/20) COMPLETE CBC W/AUTO DIFF WBC (11/04/17) COMPREHEN METABOLIC PANEL (02/10/20) CULTURE SCREEN ONLY (10/28/17) DRUG TEST PRSMV DIR OPT OBS (02/24/20) BIOPHYS PROFIL W/O NST (10/28/17) NON-STRESS TEST (11/04/17) GLUCOSE BLOOD TEST (07/21/15) GLUCOSE TEST (06/19/17) GLUCOSE TOLERANCE TEST (GTT) (06/23/17) GLYCOSYLATED HEMOGLOBIN TEST (02/24/20) HEPATITIS B SURFACE AG IA (02/24/20) HEPATITIS C AB TEST (02/24/20) HERPES SIMPLEX ROXY ANTBDY (06/19/17) HERPES SIMPLEX TYPE 1 TEST (06/19/17) HERPES SIMPLEX TYPE 2 TEST (06/19/17) HIV-1 AG W/HIV-1 & -2 AB AG IA (06/19/17) LACTATE (LD) (LDH) ENZYME (11/04/17) N.GONORRHOEAE DNA AMP PROB (02/24/20) OB US < 14 WKS SINGLE FETUS (04/18/17) OB US >/= 14 WKS SNGL FETUS (08/05/17) OB US FOLLOW-UP PER FETUS (09/01/17) RBC ANTIBODY SCREEN (02/24/20) ROUTINE VENIPUNCTURE (02/10/20) RUBELLA ANTIBODY (02/24/20) SARS-COV-2 COVID-19 AMP PRB (10/29/19) SMEAR WET [place] SALINE/INK (07/21/15) SYPHILIS TEST NON-TREP QUAL (02/24/20) THER/PROPH/DIAG INJ SC/IM (07/21/15) THER/PROPH/DIAG IV INF INIT (07/21/15) TRANSFERASE (AST) (SGOT) (11/04/17) TRANSVAGINAL US OBSTETRIC (08/05/17) URINALYSIS AUTO W/O SCOPE (10/03/17) URINALYSIS AUTO W/SCOPE (07/21/15) URINE CULTURE/COLONY COUNT (06/19/17) (1) 16 weeks gestation of SNOMED Code(s): 37590498 Code(s): Z3A.16 - 16 WEEKS GESTATION OF Priority: High Current Visit: Yes (2) Complication affecting intrauterine SNOMED Code(s): 717403097, 045604086 Code(s): O26.90 - RELATED CONDITIONS, UNSP, UNSPECIFIED TRIMESTER Priority: High Current Visit: Yes (3) Chronic hypertension affecting SNOMED Code(s): 28172341 Code(s): O10.919 - UNSP PRE-EXISTING HTN COMP , UNSP TRIMESTER Priority: High Current Visit: Yes Problem List Initiated/Reviewed/Updated: Yes Plan: A: Patient is improved since yesterday. She denies headache or pain. Vital signs stable. BPs overnight 150s/80s. Most recent was 134/80. FHT by handheld doppler 147. Physical exam unremarkable. Denies movement at this time; gestionally appropriate. NO concerns/questions at this time. P: Continue PO Labetolol 200 mg PO BID; continue 81mg aspirin daily; complete 24 urine this afternoon; anticipate discharge this evening. Plan to follow up in the clinic with Dr. Red next week (03/27 or 03/28).
[2020-03-25] MEDS: Labetalol 100 MG Tab PO SCH (10:00)
[2020-03-25] MEDS: Aspirin 81 MG Tab.Chew PO SCH (10:00)
[2020-03-25] MEDS: Nitrofurantoin Monohydrate/Macrocrystalline 100 MG Cap PO SCH (10:01)
[2020-03-25] MEDS: PRENATAL VIT CALC IRON FOLIC PO SCH (10:01)
[2020-03-25] MEDS: Prenatal Multivitamin and Multimineral with Iron Tab PO SCH (10:01)
--- NOTE | 2020-03-25 14:44 | PCM.DCSUM1 ---
Discharge Summary - Hospital Course Diagnosis: Stroke: No - Discharge Data Discharge Date: 03/25/20 Discharge Disposition: Home, Self-Care 01 Condition: Good - Referral to Home Health Primary Care Physician: PCP None - Patient Summary/Data Consults: Consultations 03/24/20 00:42 Consult to Physician [CONS] Stat 03/24/20 14:09 Consult to Case Management/Certified Phlebotomist [CONS] Routine Consult to Spiritual Care [CONS] Routine - Patient Instructions Diet: Heart Healthy Diet Activity: As Tolerated Driving: May Drive Today Showering/Bathing: May Shower Notify Provider of: Fever, Increased Pain, Swelling and Redness, Drainage, Nausea and/or Vomiting - Discharge Plan *PRESCRIPTION DRUG MONITORING PROGRAM REVIEWED*: No *COPY OF PRESCRIPTION DRUG MONITORING REPORT IN PATIENT MARLENE: No Prescriptions/Med Rec: Nitrofurantoin [place]/Macrocryst [Nitrofurantoin [place]-MCR] 100 mg PO BID #10 cap Labetalol [Normodyne] 200 mg PO BID #60 tablet Home Medications: Home Meds Vit Calc,Iron,Folic [ Vitamins] 1 tab PO DAILY 10/07/17 [History] Aspirin 81 mg PO DAILY 03/23/20 [History] Labetalol [Normodyne] 200 mg PO BID #60 tablet 03/25/20 [Rx] Nitrofurantoin [place]/Macrocryst [Nitrofurantoin [place]-MCR] 100 mg PO BID #10 cap 03/25/20 [Rx] Patient Handouts: Hypertension, Adult Referrals: Leon Red MD [Physician] - 03/27/20 9:30 am Reena Kinney MD [Physician] - 04/07/20 11:00 am - Patient Data Vitals - Most Recent: Last Vital Signs Temp 36.8 C 03/25/20 07:20 Pulse 74 03/25/20 10:00 Resp 18 03/25/20 07:20 BP 134/80 03/25/20 10:00 Pulse Ox 98 03/25/20 07:20 Weight - Most Recent: 111.811 kg I&O - Last 24 hours: Intake & Output 03/24/20 03/25/20 03/25/20 22:59 06:59 14:59 Intake Total 1000 738 Output Total 900 500 Balance 100 238 Lab Results - Last 24 hrs: Laboratory Results - last 24 hr 03/25/20 03/25/20 Range/Units 06:03 06:03 WBC 10.99 (4.0-11.0) K/uL RBC 4.70 (4.30-5.90) M/uL Hgb 10.9 L (12.0-16.0) g/dL Hct 34.6 L (36.0-46.0) % MCV 73.6 L (80.0-98.0) fL MCH 23.2 L (27.0-32.0) pg MCHC 31.5 (31.0-37.0) g/dL RDW Std Deviation 40.7 (28.0-62.0) fl RDW Coeff of Patience 15 (11.0-15.0) % Plt Count 234 (150-400) K/uL MPV 10.10 (7.40-12.00) fL Add Manual Diff YES Neutrophils % (Manual) 58 (48.0-80.0) % Lymphocytes % (Manual) 35 (16.0-40.0) % Monocytes % (Manual) 6 (0.0-15.0) % Eosinophils % (Manual) 1 (0.0-7.0) % Nucleated RBC % 0.0 /100WBC Absolute Seg Neuts 6.4 H (1.4-5.7) Lymphocytes # (Manual) 3.8 H (0.6-2.4) Monocytes # (Manual) 0.7 (0.0-0.8) Eosinophils # (Manual) 0.1 (0.0-0.7) Nucleated RBCs # 0 K/uL Sodium 138 (136-145) mmol/L Potassium 3.6 (3.5-5.1) mmol/L Chloride 105 (98-107) mmol/L Carbon Dioxide 25.1 (21.0-32.0) mmol/L BUN 10 (7.0-18.0) mg/dL Creatinine 0.6 (0.6-1.0) mg/dL Est Cr Clr Drug Dosing 122.25 mL/min Estimated GFR (MDRD) > 60.0 ml/min Glucose 92 (74-106) mg/dL Calcium 9.0 (8.5-10.1) mg/dL Total Bilirubin 0.3 (0.2-1.0) mg/dL AST 8 L (15-37) IU/L ALT 19 (14-63) IU/L Alkaline Phosphatase 58 (46-116) U/L Total Protein 7.0 (6.4-8.2) g/dL Albumin 2.9 L (3.4-5.0) g/dL Globulin 4.1 H (2.6-4.0) g/dL Albumin/Globulin Ratio 0.7 L (0.9-1.6) Med Orders - Current: Current Medications Acetaminophen (Tylenol) 650 mg PO Q4H PRN PRN Reason: Pain (Mild 1-3)/fever Aspirin (Aspirin) 81 mg PO DAILY [facility] Last Admin: 03/25/20 10:00 Dose: 81 mg Documented by: Labetalol HCl (Normodyne) 20 mg IVPUSH Q4H PRN PRN Reason: SBP>160/110 Labetalol HCl (Normodyne) 200 mg PO BID [facility] Last Admin: 03/25/20 10:00 Dose: 200 mg Documented by: Nitrofurantoin Macrocrystals (Macrobid) 100 mg PO BID [facility] Stop: 03/31/20 14:16 Last Admin: 03/25/20 10:01 Dose: 100 mg Documented by: Ondansetron HCl (Zofran) 4 mg IVPUSH Q4H PRN PRN Reason: Nausea/Vomiting Vit Calc, Iron,Folic [ Vitamins] 1 each PO DAILY [facility] Last Admin: 03/25/20 10:01 Dose: Not Given Documented by: Prenat Multivit/[place]/Iron/Folic Ac ( Mtr) 1 each PO DAILY [facility] Last Admin: 03/25/20 10:01 Dose: 1 each Documented by: Sodium Chloride (Saline Flush) 2.5 ml FLUSH ASDIRECTED PRN PRN Reason: Keep Vein Open Last Admin: 03/23/20 23:28 Dose: 2.5 ml Documented by: Discontinued Medications Acetaminophen (Tylenol Extra Strength) 1,000 mg PO ONETIME ONE Stop: 03/24/20 01:03 Last Admin: 03/24/20 01:07 Dose: 1,000 mg Documented by: Hydralazine HCl (Apresoline) 10 mg IVPUSH ONETIME ONE Stop: 03/23/20 23:14 Last Admin: 03/23/20 23:24 Dose: Not Given Documented by: Magnesium Sulfate 5 gm/ Sodium (Chloride) 60 mls @ 24 mls/hr IV ASDIRECTED [facility] Magnesium Sulfate (Magnesium Sulfate In Water Premix) 2 gm in 50 mls @ 25 mls/h r IV Q2H [facility] Stop: 03/24/20 05:14 Last Admin: 03/24/20 03:46 Dose: 25 mls/hr Documented by: Labetalol HCl (Normodyne) 20 mg IVPUSH ONETIME ONE; Protocol Stop: 03/23/20 23:05 Last Admin: 03/23/20 23:12 Dose: 20 mg Documented by: Labetalol HCl (Normodyne) 20 mg IVPUSH ONETIME ONE; Protocol Stop: 03/23/20 23:40 Last Admin: 03/23/20 23:42 Dose: 20 mg Documented by: Labetalol HCl (Normodyne) 20 mg IVPUSH ONETIME ONE; Protocol Stop: 03/23/20 23:57 Last Admin: 03/24/20 00:01 Dose: 20 mg Documented by: Labetalol HCl (Normodyne) 20 mg IVPUSH ONETIME ONE; Protocol Stop: 03/24/20 01:40 Last Admin: 03/24/20 02:00 Dose: Not Given Documented by: Metoclopramide HCl (Reglan) 10 mg IVPUSH ONETIME ONE Stop: 03/23/20 23:33 Last Admin: 03/23/20 23:42 Dose: 10 mg Documented by: Nifedipine (Procardia) mg PO BID [facility] Sodium Chloride (Saline Flush) 10 ml FLUSH ASDIRECTED PRN PRN Reason: Keep Vein Open Last Admin: 03/23/20 23:28 Dose: 10 ml Documented by:
[2020-03-25 19:49] VITALS: BP 156/67; PULSE 65
== END 2020-03-25 16:55 | disposition home or self-care (01) | DRG 566 ==
LOC: MW.ED 22:55 → MW.MS 03-24 00:41
PROVIDERS: ADMIT Student in an Organized Health Care Education/Training Program; ATTEND Student in an Organized Health Care Education/Training Program
DX: O10.912 Unspecified pre-existing hypertension complicating pregnancy, second trimester (principal); I16.0 Hypertensive urgency; O23.42 Unspecified infection of urinary tract in pregnancy, second trimester; O24.419 Gestational diabetes mellitus in pregnancy, unspecified control; O99.212 Obesity complicating pregnancy, second trimester; Z20.822 Contact with and (suspected) exposure to COVID-19; E66.9 Obesity, unspecified; Z79.82 Long term (current) use of aspirin; Z3A.16 16 weeks gestation of pregnancy
CPT/HCPCS: 36415; 71045; 71045-26; 80048; 80053; 80061; 80305-QW; 81001; 81003; 82570; 83036; 83735; 84100; 84156; 84443; 84484; 85025; 93005; 96365; 96375; 96376; 99285-25; 99291; A9270-GY; J2765; J3475; J3490; U0002

== ENCOUNTER 2020-04-30 20:12 | Emergency (ER) | payer BC ==
[2020-04-30] MEDS ORDERED: Acetaminophen 500 MG Tab PO ONE (20:54)
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
[2020-04-30 21:21] VITALS: BP 173/112; PULSE 104
== END 2020-04-30 21:04 | disposition home or self-care (01) ==
LOC: MW.ED 20:12
DX: O16.2 Unspecified maternal hypertension, second trimester (principal); O99.891 Other specified diseases and conditions complicating pregnancy; R10.84 Generalized abdominal pain; R51.9 Headache, unspecified; Z79.899 Other long term (current) drug therapy; Z3A.21 21 weeks gestation of pregnancy
CPT/HCPCS: 99283; A9270

== ENCOUNTER 2020-08-09 11:23 | Inpatient (IN) | payer BC ==
[2020-08-09 14:05] LABS: BLOOD UREA NITROGEN,BUN 6 mg/dL (7.0-18.0); CARBON DIOXIDE,CO2 22.7 mmol/L (21.0-32.0); CHLORIDE,CL 105 mmol/L (98-107); GLUCOSE RANDOM 65 mg/dL (74-106); POTASSIUM,K 4.1 mmol/L (3.5-5.1); SODIUM,NA 139 mmol/L (136-145)
[2020-08-09] MEDS ORDERED: Sodium Chloride 0.9% 10 ML SDV IV PRN (14:08)
[2020-08-09] MEDS ORDERED: Sodium Chloride 0.9% 2.5 ML Syringe FLUSH PRN (14:08)
[2020-08-09] MEDS ORDERED: Tranexamic Acid 1,000 MG in Sodium Chloride 0.9% 100 ML IV PRN ×2 (14:08→21:14)
[2020-08-09] MEDS ORDERED: Lidocaine 1% 50 ML MDV INJECT PRN (14:08)
[2020-08-09] MEDS ORDERED: Carboprost Tromethamine 250 MCG/1 ML Amp IM PRN (14:08)
[2020-08-09] MEDS ORDERED: Methylergonovine 0.2 MG/1 ML Amp IM PRN ×2 (14:08→21:14)
[2020-08-09] MEDS ORDERED: Butorphanol 1 MG/ML SDV IVPUSH PRN (14:08)
[2020-08-09] MEDS ORDERED: Nalbuphine 10 MG/1 ML Vial IVPUSH PRN ×2 (14:08→19:56)
[2020-08-09] MEDS ORDERED: Sodium Chloride 0.9% 10 ML Syringe FLUSH PRN (14:08)
[2020-08-09] MEDS ORDERED: Water For Irrigation,Sterile 1,000 ML Container IRR PRN (14:08)
[2020-08-09] MEDS ORDERED: Misoprostol 200 MCG Tab PO PRN (14:08)
[2020-08-09] MEDS ORDERED: Oxytocin/0.9 % Sodium Chloride 30 UNIT/500 ML BAG IV SCH ×2 (14:15→19:45)
--- NOTE | 2020-08-09 14:18 | US ---
For Patients: As a result of the Cures Act, medical imaging exams and procedure reports are released immediately into your electronic medical record. You may view this report before your referring provider. If you have questions, please contact your health care provider. INDICATION: Confirm position, assess placenta. COMPARISON: Ob ultrasound 07/17/2020. TECHNIQUE: Real time rincon scale imaging of the fetus was performed. FINDINGS: Sonographic imaging demonstrates a single living intrauterine gestation. The fetus has a regular cardiac rate of 124 beats per minute. The fetus has a cephalic orientation. The placenta lies anteriorly. No evidence of placenta previa or abruption. Single deepest pocket measures 10.5 cm. The cervix is closed and measures 5.3 cm in length. IMPRESSION: 1. Single living intrauterine gestation in cephalic position with heart rate 124 beats per minute. 2. No evidence of placental abruption. 3. Single deepest pocket measures 10.5 cm which could indicate polyhydramnios. Recommend attention on follow-up with four-quadrant amniotic fluid index measurement. Dictated by Araceli Gonzalez MD @ 08/09/2020 2:16:[address] Araceli Gonzalez @ Aug 09 2020 2:16PM
[2020-08-09] MEDS ORDERED: Labetalol 100 MG Tab PO ONE (14:46)
[2020-08-09] MEDS ORDERED: Misoprostol 25 MCG (1/4 of 100 MCG) Tab PO ONE (14:46)
[2020-08-09] MEDS ORDERED: Misoprostol 50 MCG (1/2 of 100 MCG) Tab VAG ONE (14:48)
--- NOTE | 2020-08-09 15:03 | PCM.LDHP ---
L&D History of Present Illness - General Date of Service: 08/09/20 Admit Problem/Dx: Patient Status Order with Admit Dx/Problem 08/09/20 11:10 Patient Status [ADT] Routine 08/09/20 14:09 Patient Status [ADT] Routine Admission Diagnosis/Problem Admission Diagnosis/Problem Source of Information: Patient History Limitations: Reports: No Limitations - History of Present Illness Improves with: Reports: None Worsens with: Reports: None Associated Symptoms: Reports: N - Related Data Allergies/Adverse Reactions: Allergies Allergy/AdvReac Type Severity Reaction Status Date / Time No Known Allergies Allergy Verified 04/30/20 20:29 Home Medications: Home Meds Vit Calc,Iron,Folic [ Vitamins] 1 tab PO DAILY 10/07/17 [History] Aspirin 81 mg PO DAILY 03/23/20 [History] NIFEdipine [Nifedipine ER] 1 tab PO DAILY 04/30/20 [History] Labetalol HCl [Labetalol] 200 mg PO DAILY 07/13/20 [History] Past Medical History - Past Health History Medical/Surgical History: Denies Medical/Surgical History HEENT History: Reports: None Cardiovascular History: Reports: Hypertension Respiratory History: Reports: None Gastrointestinal History: Reports: None Genitourinary History: Reports: None TODDLER NANNY History: Reports: Musculoskeletal History: Reports: None Neurological History: Reports: None Psychiatric History: Reports: None Endocrine/Metabolic History: Reports: Diabetes, Gestational, Obesity/BMI 30+ 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 HSV-2 - Past Surgical History Head Surgeries/Procedures: Reports: None HEENT Surgical History: Reports: None Cardiovascular Surgical History: Reports: None Female Surgical History: Reports: None Musculoskeletal Surgical History: Reports: None Dermatological Surgical History: Reports: None Social & Family History - Family History Family Medical History: No Pertinent Family History HEENT: Reports: None Cardiac: Reports: None Respiratory: Reports: None GI: Reports: None : Reports: None OBGYN: Reports: Musculoskeletal: Reports: None Psychiatric: Reports: None Oncologic: Reports: None - Tobacco Use Tobacco Use Status *Q: Never Tobacco User Second Hand Smoke Exposure: No - Caffeine Use Caffeine Use: Reports: Coffee Caffeine Use Comment: Pt drowsy, falling asleep during admission assessment - Recreational Drug Use Recreational Drug Use: No H&P Review of Systems - Review of Systems: Review Of Systems: See Below General: Reports: No Symptoms HEENT: Reports: No Symptoms Pulmonary: Reports: No Symptoms Cardiovascular: Reports: No Symptoms Gastrointestinal: Reports: No Symptoms Genitourinary: Reports: No Symptoms Musculoskeletal: Reports: No Symptoms Skin: Reports: No Symptoms Psychiatric: Reports: No Symptoms Neurological: Reports: No Symptoms Hematologic/Lymphatic: Reports: No Symptoms Immunologic: Reports: No Symptoms L&D Exam - Exam Exam: See Below - Vital Signs Weight: 115.212 kg - OB Specific Contraction Intensity: Mild Movement: Active Presentation: Vertex - Hernandez Score Hernandez Score Cervix Position: Midposition Hernandez Score Consistency: Medium Hernandez Score Effacement: 51-70% Hernandez Score Dilation: 1-2 cm Hernandez Score 's Station: -3 Hernandez Score Total: 5 - Exam General: Alert, Oriented HEENT: PERRLA, Conjunctiva Clear, EACs Clear, EOMI, Hearing Intact, Mucosa Moist & [place], Nares Patent, Normal Nasal Septum, Posterior Pharynx Clear, TMs Clear Neck: Supple, Trachea Midline Lungs: Clear to Auscultation, Normal Respiratory Effort Cardiovascular: Regular Rate, Regular Rhythm GI/Abdominal Exam: Normal Bowel Sounds, Soft, Non-Tender, No Organomegaly, No Distention, No Abnormal Bruit, No Mass, Pelvis Stable Rectal Exam: Normal Exam, Normal Rectal Tone Genitourinary: Normal external exam, Normal bimanual exam, Normal speculum exam Back Exam: Normal Inspection, Full Range of Motion Extremities: Normal Inspection, Normal Range of Motion, Non-Tender, No Pedal Edema, Normal Capillary Refill Skin: Warm, Dry, Intact Neurological: Cranial Nerves Intact, Reflexes Equal Bilateral Psychiatric: Alert, Normal Affect, Normal Mood - Patient Data Lab Results Last 24 hrs: Laboratory Results - last 24 hr 08/09/20 08/09/20 08/09/20 Range/Units 12:15 12:30 13:04 WBC 7.30 (4.0-11.0) K/uL RBC 4.89 (4.30-5.90) M/uL Hgb 11.5 L (12.0-16.0) g/dL Hct 35.5 L (36.0-46.0) % MCV 72.6 L (80.0-98.0) fL MCH 23.5 L (27.0-32.0) pg MCHC 32.4 (31.0-37.0) g/dL RDW Std Deviation 41.4 (28.0-62.0) fl RDW Coeff of Patience 16 H (11.0-15.0) % Plt Count 265 (150-400) K/uL MPV 11.00 (7.40-12.00) fL Nucleated RBC % 0.0 /100WBC Nucleated RBCs # 0 K/uL Sodium 139 (136-145) mmol/L Potassium 4.1 (3.5-5.1) mmol/L Chloride 105 (98-107) mmol/L Carbon Dioxide 22.7 (21.0-32.0) mmol/L BUN 6 L (7.0-18.0) mg/dL Creatinine 0.7 (0.6-1.0) mg/dL Est Cr Clr Drug Dosing 104.78 mL/min Estimated GFR (MDRD) > 60.0 ml/min Glucose 65 L (74-106) mg/dL Uric Acid 3.6 (2.6-7.2) mg/dL Calcium 9.1 (8.5-10.1) mg/dL Total Bilirubin 0.3 (0.2-1.0) mg/dL AST 20 (15-37) IU/L ALT 27 (14-63) IU/L Alkaline Phosphatase 159 H (46-116) U/L Total Protein 7.4 (6.4-8.2) g/dL Albumin 2.8 L (3.4-5.0) g/dL Globulin 4.6 H (2.6-4.0) g/dL Albumin/Globulin Ratio 0.6 L (0.9-1.6) Ur Random Creatinine 9.9 mg/dL U Random Total Protein < 6.0 (<11.9) mg/dL Protein/Creatinin Ratio TNP Result Diagrams: 08/09/20 12:30 08/09/20 13:04 Problem List Initiated/Reviewed/Updated: Yes Orders Last 24hrs: Active Orders 24 hr Category Date Time Status Patient Status [ADT] Routine ADT 08/09/20 11:10 Active Patient Status [ADT] Routine ADT 08/09/20 14:09 Active Heart Tones [RC] ASDIRECTED Care 08/09/20 11:36 Active Heart Tones [RC] CONTINUOUS Care 08/09/20 14:09 Active Non Stress Test [RC] PER UNIT ROUTINE Care 08/09/20 11:52 Active Non Stress Test [RC] PER UNIT ROUTINE Care 08/09/20 14:09 Active May Shower [RC] ASDIRECTED Care 08/09/20 14:09 Active Notify Provider [RC] PRN Care 08/09/20 14:09 Active Up ad Santa [RC] ASDIRECTED Care 08/09/20 11:52 Active Up ad Santa [RC] ASDIRECTED Care 08/09/20 14:09 Active Vaginal Exam [RC] Click to Edit Care 08/09/20 11:52 Active Vaginal Exam [RC] PRN Care 08/09/20 14:09 Active Vital Signs [RC] PER UNIT ROUTINE Care 08/09/20 11:52 Active Vital Signs [RC] PER UNIT ROUTINE Care 08/09/20 14:09 Active Regular Diet [DIET] Diet 08/09/20 Lunch Active CORONAVIRUS COVID-19 JUANJO [MOLEC] Routine Lab 08/09/20 14:15 Received RPR (SYPHILIS SERO) W/ RFLX [REF] Routine Lab 08/09/20 13:04 Received TYPE AND SCREEN [BBK] Routine Lab 08/09/20 13:04 Received Butorphanol [Stadol] Med 08/09/20 14:08 Active 1 mg IVPUSH Q1H PRN Carboprost Tromethamine [Hemabate DS] Med 08/09/20 14:08 Active 250 mcg IM ASDIRECTED PRN Labetalol [Normodyne] Med 08/09/20 14:46 Once 100 mg PO ONETIME ONE Lactated Ringers [Ringers, Lactated] 1,000 ml Med 08/09/20 14:15 Active IV ASDIRECTED Lidocaine 1% [Xylocaine 1%] Med 08/09/20 14:08 Active 50 ml INJECT ONETIME PRN Methylergonovine [Methergine] Med 08/09/20 14:08 Active 0.2 mg IM ASDIRECTED PRN Nalbuphine [Nubain] Med 08/09/20 14:08 Active 10 mg IVPUSH Q1H PRN Oxytocin/0.9 % Sodium Chloride [Oxytocin 30 Unit/500 ML Med 08/09/20 14:15 Active -NS] 30 unit in 500 ml IV TITRATE Sodium Chloride 0.9% [Normal Saline] Med 08/09/20 14:08 Active 10 ml IV ASDIRECTED PRN Sodium Chloride 0.9% [Saline Flush] Med 08/09/20 14:08 Active 10 ml FLUSH ASDIRECTED PRN Sodium Chloride 0.9% [Saline Flush] Med 08/09/20 14:08 Active 2.5 ml FLUSH ASDIRECTED PRN Tranexamic Acid [Cyklokapron] 1,000 mg Med 08/09/20 14:08 Active Sodium Chloride 0.9% [Normal Saline] 100 ml IV ONETIME Water For Irrigation,Sterile [Sterile Water for Med 08/09/20 14:08 Active Irrigation] 1,000 ml IRR ASDIRECTED PRN miSOPROStoL [Cytotec] Med 08/09/20 14:08 Active 200 mcg PO ONETIME PRN miSOPROStoL [Cytotec] Med 08/09/20 14:46 Once 25 mcg PO ONETIME ONE miSOPROStoL [Cytotec] Med 08/09/20 14:48 Once 25 mcg VAG ONETIME ONE Electronic Heart Tones Ext w TOCO [WOMSER] Per Oth 08/09/20 11:33 Ordered Unit Routine Scalp Electrode [WOMSER] Per Unit Routine Oth 08/09/20 14:09 Ordered Peripheral IV Insertion Adult [OM.PC] Routine Oth 08/09/20 14:09 Ordered Resuscitation Status Routine Resus Stat 08/09/20 11:52 Ordered Medication Orders Butorphanol Tartrate (Butorphanol 1 Mg/Ml Sdv) 1 mg IVPUSH Q1H PRN PRN Reason: Pain (severe 7-10) Carboprost Tromethamine (Carboprost Tromethamine 250 Mcg/1 Ml Amp) 250 mcg IM A SDIRECTED PRN PRN Reason: Post Hemorrhage Lactated Ringer's (Ringers, Lactated) 1,000 mls @ 150 mls/hr IV ASDIRECTED KEKE Oxytocin/Sodium Chloride (Oxytocin 30 Unit/500 Ml-Ns) 30 unit in 500 mls @ 999 mls/hr IV TITRATE KEKE Tranexamic Acid 1,000 mg/ (Sodium Chloride) 110 mls @ 660 mls/hr IV ONETIME PRN PRN Reason: Bleeding Labetalol HCl (Labetalol 100 Mg Tab) 100 mg PO ONETIME ONE Stop: 08/09/20 14:47 Lidocaine HCl (Lidocaine 1% 50 Ml Mdv) 50 ml INJECT ONETIME PRN PRN Reason: Laceration repair Methylergonovine Maleate (Methylergonovine 0.2 Mg/1 Ml Amp) 0.2 mg IM ASDIRECTED PRN PRN Reason: Post Hemorrhage Misoprostol (Misoprostol 200 Mcg Tab) 200 mcg PO ONETIME PRN PRN Reason: Post Hemorrhage Misoprostol (Misoprostol 25 Mcg (1/4 Of 100 Mcg) Tab) 25 mcg PO ONETIME ONE Stop: 08/09/20 14:47 Misoprostol (Misoprostol 50 Mcg (1/2 Of 100 Mcg) Tab) 25 mcg VAG ONETIME ONE Stop: 08/09/20 14:49 Nalbuphine HCl (Nalbuphine 10 Mg/1 Ml Vial) 10 mg IVPUSH Q1H PRN PRN Reason: Pain (severe 7-10) Sodium Chloride (Sodium Chloride 0.9% 10 Ml Syringe) 10 ml FLUSH ASDIRECTED PRN PRN Reason: Keep Vein Open Sodium Chloride (Sodium Chloride 0.9% 2.5 Ml Syringe) 2.5 ml FLUSH ASDIRECTED PRN PRN Reason: Keep Vein Open Sodium Chloride (Sodium Chloride 0.9% 10 Ml Sdv) 10 ml IV ASDIRECTED PRN PRN Reason: IV Use Sterile Water (Water For Irrigation,Sterile 1,000 Ml Container) 1,000 ml IRR ASDIRECTED PRN PRN Reason: delivery Assessment/Plan Comment:: Patient is 36+4 she is chronic hypertensive on labetalol and Procardia he came to the office today with her blood pressure is between 180/110-175/109 she have no headache and no proteinuria however her blood pressure is risky for her to send home I sent her to labor and delivery and she have a reactive NST ultrasound confirmed the placenta is normal in vertex presentation had lab work is normal she was originally scheduled for elective induction next week cause of her chronic hypertension. Closing her blood pressure is elevated today significantly I am going to admit her to the hospital today and start induction with Cytotec and Pitocin explained to the patient the process of induction and the medication we use. Overall the protocol of PIH/hypertension for management of her blood pressure while she is in labor.
[2020-08-09] MEDS ORDERED: Labetalol 100 MG/20 ML MDV IVPUSH ONE ×5 (15:06→23:44)
[2020-08-09] MEDS ORDERED: Misoprostol 25 MCG (1/4 of 100 MCG) Tab VAG ONE (15:30)
[2020-08-09] MEDS: Lactated Ringers 1,000 ML IV SCH ×2 (17:20→18:36)
[2020-08-09] MEDS ORDERED: ceFAZolin 2 GM in Premix Bag 1 BAG IV ONE (19:37)
[2020-08-09] MEDS ORDERED: Citric Acid/Sodium Citrate Solution 30 ML Cup PO ONE (19:37)
[2020-08-09] MEDS ORDERED: Lactated Ringers 1,000 ML IV SCH ×2 (19:45→21:15)
[2020-08-09] MEDS ORDERED: Morphine PF 10 MG/10 ML SDV ONE (19:52)
[2020-08-09] MEDS ORDERED: fentaNYL 100 MCG/2 ML SDV ONE (19:52)
[2020-08-09] MEDS ORDERED: Naloxone 0.4 MG/ML Syringe IVPUSH PRN ×2 (19:56)
[2020-08-09] MEDS ORDERED: Albuterol 0.083% 2.5 MG/3 ML Neb Soln NEB PRN (19:56)
[2020-08-09] MEDS ORDERED: Acetaminophen/oxyCODONE 325-5 MG Tab PO PRN ×2 (19:56→21:14)
[2020-08-09] MEDS ORDERED: ePHEDrine 50 MG/ML SDV IVPUSH PRN (19:56)
[2020-08-09] MEDS ORDERED: Metoclopramide 10 MG/2 ML SDV IVPUSH PRN (19:56)
[2020-08-09] MEDS ORDERED: HYDROmorphone 2 MG/ML Syringe IVPUSH PRN (19:56)
[2020-08-09] MEDS ORDERED: Phenylephrine/Normal Saline 100 MCG/ML 10 ML Syringe IVPUSH PRN (19:56)
[2020-08-09] MEDS ORDERED: fentaNYL 100 MCG/2 ML SDV IVPUSH PRN ×2 (19:56)
[2020-08-09] MEDS ORDERED: Morphine 2 MG/ML SYRINGE IVPUSH PRN (19:56)
[2020-08-09] MEDS ORDERED: diphenhydrAMINE 50 MG/ML SDV IVPUSH PRN ×2 (19:56→21:14)
[2020-08-09] MEDS ORDERED: Ondansetron 4 MG/2 ML SDV IVPUSH PRN ×3 (19:56→21:14)
[2020-08-09] MEDS ORDERED: ceFAZolin 1 GM Vial ONE (20:00)
--- NOTE | 2020-08-09 20:02 | PCM.PREANE ---
Preanesthetic Assessment - Anesthesia/Transfusion/Family Hx Anesthesia History: Prior Anesthesia Without Reaction Family History of Anesthesia Reaction: No Transfusion History: No Prior Transfusion(s) - Review of Systems General: No Symptoms Pulmonary: No Symptoms Cardiovascular: Other (HTN) Gastrointestinal: No Symptoms Neurological: Other (PIH) Other: Reports: Diabetes (Gestational only) - Physical Assessment NPO Status Date: 08/09/20 NPO Status Time: 17:00 Vital Signs: Last Vital Signs Temp Pulse 86 08/09/20 15:13 Resp BP 171/125 H 08/09/20 15:13 Pulse Ox Height: 5 ft 5 in Weight: 254 lb ASA Class: 3E Mental Status: Alert & Oriented x3 Airway Class: Mallampati = 2 Dentition: Reports: Normal Dentition Thyro-Mental Finger Breadths: 4 Mouth Opening Finger Breadths: 4 ROM/Head Extension: Full Lungs: Clear to Auscultation, Normal Respiratory Effort Cardiovascular: Regular Rate, Regular Rhythm - Lab Values: Laboratory Last Values WBC 7.30 K/uL (4.0-11.0) 08/09/20 12:30 RBC 4.89 M/uL (4.30-5.90) 08/09/20 12:30 Hgb 11.5 g/dL (12.0-16.0) L 08/09/20 12:30 Hct 35.5 % (36.0-46.0) L 08/09/20 12:30 MCV 72.6 fL (80.0-98.0) L 08/09/20 12:30 MCH 23.5 pg (27.0-32.0) L 08/09/20 12:30 MCHC 32.4 g/dL (31.0-37.0) 08/09/20 12:30 RDW Std Deviation 41.4 fl (28.0-62.0) 08/09/20 12:30 RDW Coeff of Patience 16 % (11.0-15.0) H 08/09/20 12:30 Plt Count 265 K/uL (150-400) 08/09/20 12:30 MPV 11.00 fL (7.40-12.00) 08/09/20 12:30 Nucleated RBC % 0.0 /100WBC 08/09/20 12:30 Nucleated RBCs # 0 K/uL 08/09/20 12:30 Sodium 139 mmol/L (136-145) 08/09/20 13:04 Potassium 4.1 mmol/L (3.5-5.1) 08/09/20 13:04 Chloride 105 mmol/L (98-107) 08/09/20 13:04 Carbon Dioxide 22.7 mmol/L (21.0-32.0) 08/09/20 13:04 BUN 6 mg/dL (7.0-18.0) L 08/09/20 13:04 Creatinine 0.7 mg/dL (0.6-1.0) 08/09/20 13:04 Est Cr Clr Drug Dosing 104.78 mL/min 08/09/20 13:04 Estimated GFR (MDRD) > 60.0 ml/min 08/09/20 13:04 Glucose 65 mg/dL (74-106) L 08/09/20 13:04 Uric Acid 3.6 mg/dL (2.6-7.2) 08/09/20 13:04 Calcium 9.1 mg/dL (8.5-10.1) 08/09/20 13:04 Total Bilirubin 0.3 mg/dL (0.2-1.0) 08/09/20 13:04 AST 20 IU/L (15-37) 08/09/20 13:04 ALT 27 IU/L (14-63) 08/09/20 13:04 Alkaline Phosphatase 159 U/L (46-116) H 08/09/20 13:04 Total Protein 7.4 g/dL (6.4-8.2) 08/09/20 13:04 Albumin 2.8 g/dL (3.4-5.0) L 08/09/20 13:04 Globulin 4.6 g/dL (2.6-4.0) H 08/09/20 13:04 Albumin/Globulin Ratio 0.6 (0.9-1.6) L 08/09/20 13:04 Ur Random Creatinine 9.9 mg/dL 08/09/20 12:15 U Random Total Protein < 6.0 mg/dL (<11.9) 08/09/20 12:15 Protein/Creatinin Ratio TNP 08/09/20 12:15 SARS-CoV-2 RNA ([facility]) NEGATIVE (NEGATIVE) 08/09/20 14:15 Blood Type O POSITIVE 08/09/20 13:04 Antibody Screen NEGATIVE 08/09/20 13:04 - Allergies Allergies/Adverse Reactions: Allergies Allergy/AdvReac Type Severity Reaction Status Date / Time No Known Allergies Allergy Verified 04/30/20 20:29 - Blood Blood Available: Yes - Acknowledgements Anesthesia Type Planned: Spinal Pt an Appropriate Candidate for the Planned Anesthesia: Yes Alternatives and Risks of Anesthesia Discussed w Pt/Guardian: Yes Pt/Guardian Understands and Agrees with Anesthesia Plan: Yes PreAnesthesia Questionnaire - Past Health History Medical/Surgical History: Denies Medical/Surgical History HEENT History: Reports: None Cardiovascular History: Reports: Hypertension Respiratory History: Reports: None Gastrointestinal History: Reports: None Genitourinary History: Reports: None 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 HSV-2 - Past Surgical History Head Surgeries/Procedures: Reports: None HEENT Surgical History: Reports: None Cardiovascular Surgical History: Reports: None Female Surgical History: Reports: None Musculoskeletal Surgical History: Reports: None Dermatological Surgical History: Reports: None - SUBSTANCE USE Tobacco Use Status *Q: Never Tobacco User Second Hand Smoke Exposure: No Recreational Drug Use History: No - HOME MEDS Home Medications: Home Meds Vit Calc,Iron,Folic [ Vitamins] 1 tab PO DAILY 10/07/17 [History] Aspirin 81 mg PO DAILY 03/23/20 [History] NIFEdipine [Nifedipine ER] 1 tab PO DAILY 04/30/20 [History] Labetalol HCl [Labetalol] 100 mg PO DAILY 07/13/20 [History] - CURRENT (IN HOUSE) MEDS Current Meds: Current Medications Butorphanol Tartrate (Butorphanol 1 Mg/Ml Sdv) 1 mg IVPUSH Q1H PRN PRN Reason: Pain (severe 7-10) Carboprost Tromethamine (Carboprost Tromethamine 250 Mcg/1 Ml Amp) 250 mcg IM ASDIRECTED PRN PRN Reason: Post Hemorrhage Lactated Ringer's (Ringers, Lactated) 1,000 mls @ 150 mls/hr IV ASDIRECTED [facility] Last Admin: 08/09/20 18:36 Dose: 150 mls/hr Documented by: Oxytocin/Sodium Chloride (Oxytocin 30 Unit/500 Ml-Ns) 30 unit in 500 mls @ 999 mls/hr IV TITRATE [facility] Tranexamic Acid 1,000 mg/ (Sodium Chloride) 110 mls @ 660 mls/hr IV ONETIME PRN PRN Reason: Bleeding Lactated Ringer's (Ringers, Lactated) 1,000 mls @ 500 mls/hr IV [place] Oxytocin/Sodium Chloride (Oxytocin 30 Unit/500 Ml-Ns) 30 unit in 500 mls @ 250 mls/hr IV TITRATE [facility] Cefazolin Sodium/Dextrose 2 gm (/ Premix) 50 mls @ 100 mls/hr IV ONETIME ONE Stop: 08/09/20 20:06 Lidocaine HCl (Lidocaine 1% 50 Ml Mdv) 50 ml INJECT ONETIME PRN PRN Reason: Laceration repair Methylergonovine Maleate (Methylergonovine 0.2 Mg/1 Ml Amp) 0.2 mg IM ASDIRECTED PRN PRN Reason: Post Hemorrhage Misoprostol (Misoprostol 200 Mcg Tab) 200 mcg PO ONETIME PRN PRN Reason: Post Hemorrhage Nalbuphine HCl (Nalbuphine 10 Mg/1 Ml Vial) 10 mg IVPUSH Q1H PRN PRN Reason: Pain (severe 7-10) Sodium Chloride (Sodium Chloride 0.9% 10 Ml Syringe) 10 ml FLUSH ASDIRECTED PRN PRN Reason: Keep Vein Open Sodium Chloride (Sodium Chloride 0.9% 2.5 Ml Syringe) 2.5 ml FLUSH ASDIRECTED PRN PRN Reason: Keep Vein Open Sodium Chloride (Sodium Chloride 0.9% 10 Ml Sdv) 10 ml IV ASDIRECTED PRN PRN Reason: IV Use Sterile Water (Water For Irrigation,Sterile 1,000 Ml Container) 1,000 ml IRR ASDIRECTED PRN PRN Reason: delivery Discontinued Medications Citric Acid/Sodium Citrate (Citric Acid/Sodium Citrate Solution 30 Ml Cup) 30 ml PO ONETIME ONE Stop: 08/09/20 19:38 Fentanyl (Fentanyl 100 Mcg/2 Ml Sdv) Confirm Administered Dose 100 mcg .ROUTE .STK-MED ONE Stop: 08/09/20 19:53 Labetalol HCl (Labetalol 100 Mg Tab) 100 mg PO ONETIME ONE Stop: 08/09/20 14:47 Last Admin: 08/09/20 15:13 Dose: 100 mg Documented by: Labetalol HCl (Labetalol 100 Mg/20 Ml Mdv) 20 mg IVPUSH ONETIME ONE; Protocol Stop: 08/09/20 15:07 Last Admin: 08/09/20 15:35 Dose: 20 mg Documented by: Labetalol HCl (Labetalol 100 Mg/20 Ml Mdv) 40 mg IVPUSH ONETIME ONE; Protocol Stop: 08/09/20 16:23 Last Admin: 08/09/20 16:30 Dose: 40 mg Documented by: Labetalol HCl (Labetalol 100 Mg/20 Ml Mdv) 20 mg IVPUSH ONETIME ONE; Protocol Stop: 08/09/20 18:21 Last Admin: 08/09/20 18:26 Dose: 20 mg Documented by: Labetalol HCl (Labetalol 100 Mg/20 Ml Mdv) 40 mg IVPUSH ONETIME ONE; Protocol Stop: 08/09/20 18:58 Last Admin: 08/09/20 19:07 Dose: 40 mg Documented by: Misoprostol (Misoprostol 25 Mcg (1/4 Of 100 Mcg) Tab) 25 mcg PO ONETIME ONE Stop: 08/09/20 14:47 Last Admin: 08/09/20 15:13 Dose: 25 mcg Documented by: Misoprostol (Misoprostol 25 Mcg (1/4 Of 100 Mcg) Tab) 25 mcg VAG ONETIME ONE Stop: 08/09/20 15:31 Last Admin: 08/09/20 15:38 Dose: 25 mcg Documented by: Morphine Sulfate (Morphine Pf 10 Mg/10 Ml Sdv) Confirm Administered Dose 10 mg .ROUTE .STK-MED ONE Stop: 08/09/20 19:53
[2020-08-09] MEDS ORDERED: Oxytocin 10 Units/1 ML SDV ONE (20:06)
[2020-08-09] MEDS ORDERED: Lanolin 100% Cream 7 GM Tube TOP PRN (21:14)
[2020-08-09] MEDS ORDERED: Misoprostol 200 MCG Tab RECTAL PRN (21:14)
[2020-08-09] MEDS ORDERED: Oxytocin 10 Units/1 ML SDV IM PRN (21:14)
[2020-08-09] MEDS ORDERED: Bisacodyl 10 MG Supp RECTAL PRN (21:14)
--- NOTE | 2020-08-09 21:19 | PCM.OPNOTE ---
- General Post-Op/Procedure Note Date of Surgery/Procedure: 08/09/20 Operative Procedure(s): Primary C/Section Pre Op Diagnosis: [id number]+4. PIH Post-Op Diagnosis: Same Anesthesia Technique: Spinal Primary Surgeon: Leon Red [employer] Officer: Amelie Liz EBL in mLs: 700 Complications: None Condition: Good
[2020-08-09] MEDS ORDERED: Octyl 2-Cyanoacrylate 1 Tube ONE (21:25)
--- NOTE | 2020-08-09 21:35 | PCM.POSTAN ---
POST ANESTHESIA ASSESSMENT - MENTAL STATUS Mental Status: Alert, Oriented - VITAL SIGNS Vital Signs: Last Vital Signs Temp Pulse 86 08/09/20 15:13 Resp BP 171/125 H 08/09/20 15:13 Pulse Ox - RESPIRATORY Respiratory Status: Respiratory Rate WNL, Airway Patent, O2 Saturation Stable - CARDIOVASCULAR CV Status: Pulse Rate WNL, Blood Pressure Stable - GASTROINTESTINAL GI Status: No Symptoms - POST OP HYDRATION Hydration Status: Adequate & Stable
[2020-08-09] MEDS ORDERED: Labetalol 100 MG/20 ML MDV IVPUSH PRN (23:46)
[2020-08-10] MEDS ORDERED: Labetalol 100 MG Tab PO ONE (00:13)
[2020-08-10] MEDS ORDERED: NIFEdipine 30 MG Tab.ER PO ONE (00:14)
[2020-08-10] MEDS ORDERED: NIFEdipine 30 MG Tab.ER ONE (00:19)
[2020-08-10] MEDS ORDERED: Hydrochlorothiazide 12.5 MG Cap PO ONE (02:06)
[2020-08-10] MEDS: Ketorolac 30 MG/ML SDV IVPUSH SCH ×4 (03:37→21:17)
[2020-08-10 06:48] LABS: BLOOD UREA NITROGEN,BUN 10 mg/dL (7.0-18.0); CARBON DIOXIDE,CO2 22.7 mmol/L (21.0-32.0); CHLORIDE,CL 104 mmol/L (98-107); GLUCOSE RANDOM 98 mg/dL (74-106); POTASSIUM,K 4.5 mmol/L (3.5-5.1); SODIUM,NA 137 mmol/L (136-145)
--- NOTE | 2020-08-10 08:49 | PCM.PNPP ---
- General Info Date of Service: 08/10/20 Functional Status: Reports: Pain Controlled - Review of Systems General: Reports: No Symptoms HEENT: Reports: No Symptoms Pulmonary: Reports: No Symptoms Cardiovascular: Reports: No Symptoms Gastrointestinal: Reports: No Symptoms Genitourinary: Reports: No Symptoms Musculoskeletal: Reports: No Symptoms Skin: Reports: No Symptoms Neurological: Reports: No Symptoms Psychiatric: Reports: No Symptoms - General Info Date of Service: 08/10/20 - Patient Data Vital Signs - Most Recent: Last Vital Signs Temp 36.8 C 08/10/20 08:00 Pulse 75 08/10/20 08:00 Resp 18 08/10/20 08:00 BP 122/68 08/10/20 08:00 Pulse Ox 98 08/10/20 08:00 Weight - Most Recent: 115.212 kg Lab Results - Last 24 Hours: Laboratory Results - last 24 hr 08/09/20 08/09/20 08/09/20 Range/Units 12:15 12:30 13:04 WBC 7.30 (4.0-11.0) K/uL RBC 4.89 (4.30-5.90) M/uL Hgb 11.5 L (12.0-16.0) g/dL Hct 35.5 L (36.0-46.0) % MCV 72.6 L (80.0-98.0) fL MCH 23.5 L (27.0-32.0) pg MCHC 32.4 (31.0-37.0) g/dL RDW Std Deviation 41.4 (28.0-62.0) fl RDW Coeff of Patience 16 H (11.0-15.0) % Plt Count 265 (150-400) K/uL MPV 11.00 (7.40-12.00) fL Nucleated RBC % 0.0 /100WBC Nucleated RBCs # 0 K/uL Sodium 139 (136-145) mmol/L Potassium 4.1 (3.5-5.1) mmol/L Chloride 105 (98-107) mmol/L Carbon Dioxide 22.7 (21.0-32.0) mmol/L BUN 6 L (7.0-18.0) mg/dL Creatinine 0.7 (0.6-1.0) mg/dL Est Cr Clr Drug Dosing 104.78 mL/min Estimated GFR (MDRD) > 60.0 ml/min Glucose 65 L (74-106) mg/dL Uric Acid 3.6 (2.6-7.2) mg/dL Calcium 9.1 (8.5-10.1) mg/dL Total Bilirubin 0.3 (0.2-1.0) mg/dL AST 20 (15-37) IU/L ALT 27 (14-63) IU/L Alkaline Phosphatase 159 H (46-116) U/L Total Protein 7.4 (6.4-8.2) g/dL Albumin 2.8 L (3.4-5.0) g/dL Globulin 4.6 H (2.6-4.0) g/dL Albumin/Globulin Ratio 0.6 L (0.9-1.6) Ur Random Creatinine 9.9 mg/dL U Random Total Protein < 6.0 (<11.9) mg/dL Protein/Creatinin Ratio TNP SARS-CoV-2 RNA (JUANJO) (NEGATIVE) Blood Type Antibody Screen 08/09/20 08/09/20 08/10/20 Range/Units 13:04 14:15 05:20 WBC 10.88 (4.0-11.0) K/uL RBC 4.01 L (4.30-5.90) M/uL Hgb 9.6 L (12.0-16.0) g/dL Hct 29.8 L (36.0-46.0) % MCV 74.3 L (80.0-98.0) fL MCH 23.9 L (27.0-32.0) pg MCHC 32.2 (31.0-37.0) g/dL RDW Std Deviation 42.6 (28.0-62.0) fl RDW Coeff of Patience 16 H (11.0-15.0) % Plt Count 230 (150-400) K/uL MPV 10.30 (7.40-12.00) fL Nucleated RBC % 0.0 /100WBC Nucleated RBCs # 0 K/uL Sodium (136-145) mmol/L Potassium (3.5-5.1) mmol/L Chloride (98-107) mmol/L Carbon Dioxide (21.0-32.0) mmol/L BUN (7.0-18.0) mg/dL Creatinine (0.6-1.0) mg/dL Est Cr Clr Drug Dosing mL/min Estimated GFR (MDRD) ml/min Glucose (74-106) mg/dL Uric Acid (2.6-7.2) mg/dL Calcium (8.5-10.1) mg/dL Total Bilirubin (0.2-1.0) mg/dL AST (15-37) IU/L ALT (14-63) IU/L Alkaline Phosphatase (46-116) U/L Total Protein (6.4-8.2) g/dL Albumin (3.4-5.0) g/dL Globulin (2.6-4.0) g/dL Albumin/Globulin Ratio (0.9-1.6) Ur Random Creatinine mg/dL U Random Total Protein (<11.9) mg/dL Protein/Creatinin Ratio SARS-CoV-2 RNA (JUANJO) NEGATIVE (NEGATIVE) Blood Type O POSITIVE Antibody Screen NEGATIVE 08/10/20 Range/Units 05:20 WBC (4.0-11.0) K/uL RBC (4.30-5.90) M/uL Hgb (12.0-16.0) g/dL Hct (36.0-46.0) % MCV (80.0-98.0) fL MCH (27.0-32.0) pg MCHC (31.0-37.0) g/dL RDW Std Deviation (28.0-62.0) fl RDW Coeff of Paitence (11.0-15.0) % Plt Count (150-400) K/uL MPV (7.40-12.00) fL Nucleated RBC % /100WBC Nucleated RBCs # K/uL Sodium 137 (136-145) mmol/L Potassium 4.5 (3.5-5.1) mmol/L Chloride 104 (98-107) mmol/L Carbon Dioxide 22.7 (21.0-32.0) mmol/L BUN 10 (7.0-18.0) mg/dL Creatinine 0.7 (0.6-1.0) mg/dL Est Cr Clr Drug Dosing 104.78 mL/min Estimated GFR (MDRD) > 60.0 ml/min Glucose 98 (74-106) mg/dL Uric Acid (2.6-7.2) mg/dL Calcium 8.6 (8.5-10.1) mg/dL Total Bilirubin 0.3 (0.2-1.0) mg/dL AST 21 (15-37) IU/L ALT 24 (14-63) IU/L Alkaline Phosphatase 127 H (46-116) U/L Total Protein 5.9 L (6.4-8.2) g/dL Albumin 2.3 L (3.4-5.0) g/dL Globulin 3.6 (2.6-4.0) g/dL Albumin/Globulin Ratio 0.6 L (0.9-1.6) Ur Random Creatinine mg/dL U Random Total Protein (<11.9) mg/dL Protein/Creatinin Ratio SARS-CoV-2 RNA ([facility]) (NEGATIVE) Blood Type Antibody Screen Med Orders - Current: Current Medications Albuterol (Albuterol 0.083% 2.5 Mg/3 Ml Neb Soln) 2.5 mg NEB ONETIME PRN PRN Reason: Wheezing Bisacodyl (Bisacodyl 10 Mg Supp) 10 mg RECTAL ONETIME PRN PRN Reason: Constipation Butorphanol Tartrate (Butorphanol 1 Mg/Ml Sdv) 1 mg IVPUSH Q1H PRN PRN Reason: Pain (severe 7-10) Carboprost Tromethamine (Carboprost Tromethamine 250 Mcg/1 Ml Amp) 250 mcg IM ASDIRECTED PRN PRN Reason: Post Hemorrhage Diphenhydramine HCl (Diphenhydramine 50 Mg/Ml Sdv) 12.5 mg IVPUSH Q2H PRN PRN Reason: Itching Diphenhydramine HCl (Diphenhydramine 50 Mg/Ml Sdv) 25 mg IVPUSH Q6H PRN PRN Reason: Itching or Nausea Docusate Sodium (Docusate Sodium 100 Mg Cap) 100 mg PO BID KEKE Droperidol (Droperidol 5 Mg/2 Ml Sdv) 0.625 mg IVPUSH ONETIME PRN PRN Reason: Nausea/Vomiting Emollient Ointment (Lanolin 100% Cream 7 Gm Tube) 0 gm TOP ASDIRECTED PRN PRN Reason: Sore Nipples Ephedrine Sulfate (Ephedrine 50 Mg/Ml Sdv) 10 mg IVPUSH Q5M PRN PRN Reason: Hypotension Fentanyl (Fentanyl 100 Mcg/2 Ml Sdv) 50 mcg IVPUSH Q1H PRN PRN Reason: Pain (severe 7-10) Fentanyl (Fentanyl 100 Mcg/2 Ml Sdv) 50 mcg IVPUSH Q5M PRN PRN Reason: Pain (mild 1-3) Hydromorphone HCl (Hydromorphone 2 Mg/Ml Syringe) 0.5 mg IVPUSH Q10M PRN PRN Reason: Pain (moderate 4-6) Lactated Ringer's (Ringers, Lactated) 1,000 mls @ 150 mls/hr IV ASDIRECTED [facility] Last Admin: 08/09/20 18:36 Dose: 150 mls/hr Documented by: Oxytocin/Sodium Chloride (Oxytocin 30 Unit/500 Ml-Ns) 30 unit in 500 mls @ 999 mls/hr IV TITRATE [facility] Tranexamic Acid 1,000 mg/ (Sodium Chloride) 110 mls @ 660 mls/hr IV ONETIME PRN PRN Reason: Bleeding Lactated Ringer's (Ringers, Lactated) 1,000 mls @ 500 mls/hr IV BOLUS [facility] Oxytocin/Sodium Chloride (Oxytocin 30 Unit/500 Ml-Ns) 30 unit in 500 mls @ 250 mls/hr IV TITRATE [facility] Lactated Ringer's (Ringers, Lactated) 1,000 mls @ 125 mls/hr IV ASDIRECTED [facility] Tranexamic Acid 1,000 mg/ (Sodium Chloride) 110 mls @ 660 mls/hr IV ONETIME PRN PRN Reason: Bleeding Ibuprofen (Ibuprofen 800 Mg Tab) 800 mg PO Q8H PRN PRN Reason: mild pain or fever Ketorolac Tromethamine (Ketorolac 30 Mg/Ml Sdv) 30 mg IVPUSH Q6H [facility] Stop: 08/10/20 21:16 Last Admin: 08/10/20 03:37 Dose: 30 mg Documented by: Labetalol HCl (Labetalol 100 Mg/20 Ml Mdv) 40 mg IVPUSH ONETIME PRN; Protocol PRN Reason: Hypertension Lidocaine HCl (Lidocaine 1% 50 Ml Mdv) 50 ml INJECT ONETIME PRN PRN Reason: Laceration repair Methylergonovine Maleate (Methylergonovine 0.2 Mg/1 Ml Amp) 0.2 mg IM ASDIRECTED PRN PRN Reason: Post Hemorrhage Methylergonovine Maleate (Methylergonovine 0.2 Mg/1 Ml Amp) 0.2 mg IM ONETIME PRN PRN Reason: Excessive Vaginal Bleeding Metoclopramide HCl (Metoclopramide 10 Mg/2 Ml Sdv) 10 mg IVPUSH ONETIME PRN PRN Reason: Nausea/Vomiting Misoprostol (Misoprostol 200 Mcg Tab) 200 mcg PO ONETIME PRN PRN Reason: Post Hemorrhage Misoprostol (Misoprostol 200 Mcg Tab) 1,000 mcg RECTAL ONETIME PRN PRN Reason: excessive bleeding Morphine Sulfate (Morphine 2 Mg/Ml Syringe) 2 mg IVPUSH Q10M PRN PRN Reason: Pain (severe 7-10) Nalbuphine HCl (Nalbuphine 10 Mg/1 Ml Vial) 10 mg IVPUSH Q1H PRN PRN Reason: Pain (severe 7-10) Nalbuphine HCl (Nalbuphine 10 Mg/1 Ml Vial) 5 mg IVPUSH ASDIRECTED PRN PRN Reason: Itching Naloxone HCl (Naloxone 0.4 Mg/Ml Syringe) 0.1 mg IVPUSH ONETIME PRN PRN Reason: Respiratory Depression Stop: 08/10/20 19:57 Naloxone HCl (Naloxone 0.4 Mg/Ml Syringe) 0.1 mg IVPUSH ASDIRECTED PRN PRN Reason: Respiratory Depression Ondansetron HCl (Ondansetron 4 Mg/2 Ml Sdv) 4 mg IVPUSH Q6H PRN PRN Reason: Nausea Ondansetron HCl (Ondansetron 4 Mg/2 Ml Sdv) 4 mg IVPUSH ONETIME PRN PRN Reason: Nausea/Vomiting Ondansetron HCl (Ondansetron 4 Mg/2 Ml Sdv) 4 mg IVPUSH Q4H PRN PRN Reason: Nausea/Vomiting Oxycodone/Acetaminophen (Acetaminophen/Oxycodone 325-5 Mg Tab) 2 tab PO Q6H PRN PRN Reason: Pain (moderate 4-6) Oxycodone/Acetaminophen (Acetaminophen/Oxycodone 325-5 Mg Tab) 1 tab PO Q4H PRN PRN Reason: Pain (severe 7-10) Oxycodone/Acetaminophen (Acetaminophen/Oxycodone 325-5 Mg Tab) 2 tab PO Q4H PRN PRN Reason: Pain (severe 7-10) Oxytocin (Oxytocin 10 Units/1 Ml Sdv) 10 unit IM ASDIRECTED PRN PRN Reason: Excessive Vaginal Bleeding Phenylephrine HCl (Phenylephrine/Normal Saline 100 Mcg/Ml 10 Ml Syringe) 0.1 mg IVPUSH Q5M PRN PRN Reason: Hypotension Sodium Chloride (Sodium Chloride 0.9% 10 Ml Syringe) 10 ml FLUSH ASDIRECTED PRN PRN Reason: Keep Vein Open Sodium Chloride (Sodium Chloride 0.9% 2.5 Ml Syringe) 2.5 ml FLUSH ASDIRECTED PRN PRN Reason: Keep Vein Open Sodium Chloride (Sodium Chloride 0.9% 10 Ml Sdv) 10 ml IV ASDIRECTED PRN PRN Reason: IV Use Sterile Water (Water For Irrigation,Sterile 1,000 Ml Container) 1,000 ml IRR ASDIRECTED PRN PRN Reason: delivery Discontinued Medications Cefazolin Sodium (Cefazolin 1 Gm Vial) Confirm Administered Dose 2 gm .ROUTE .STK-MED ONE Stop: 08/09/20 20:01 Citric Acid/Sodium Citrate (Citric Acid/Sodium Citrate Solution 30 Ml Cup) 30 ml PO ONETIME ONE Stop: 08/09/20 19:38 Fentanyl (Fentanyl 100 Mcg/2 Ml Sdv) Confirm Administered Dose 100 mcg .ROUTE .STK-MED ONE Stop: 08/09/20 19:53 Hydrochlorothiazide (Hydrochlorothiazide 12.5 Mg Cap) 12.5 mg PO ONETIME ONE Stop: 08/10/20 02:07 Last Admin: 08/10/20 02:43 Dose: 12.5 mg Documented by: Cefazolin Sodium/Dextrose 2 gm (/ Premix) 50 mls @ 100 mls/hr IV ONETIME ONE Stop: 08/09/20 20:06 Labetalol HCl (Labetalol 100 Mg Tab) 100 mg PO ONETIME ONE Stop: 08/09/20 14:47 Last Admin: 08/09/20 15:13 Dose: 100 mg Documented by: Labetalol HCl (Labetalol 100 Mg/20 Ml Mdv) 20 mg IVPUSH ONETIME ONE; Protocol Stop: 08/09/20 15:07 Last Admin: 08/09/20 15:35 Dose: 20 mg Documented by: Labetalol HCl (Labetalol 100 Mg/20 Ml Mdv) 40 mg IVPUSH ONETIME ONE; Protocol Stop: 08/09/20 16:23 Last Admin: 08/09/20 16:30 Dose: 40 mg Documented by: Labetalol HCl (Labetalol 100 Mg/20 Ml Mdv) 20 mg IVPUSH ONETIME ONE; Protocol Stop: 08/09/20 18:21 Last Admin: 08/09/20 18:26 Dose: 20 mg Documented by: Labetalol HCl (Labetalol 100 Mg/20 Ml Mdv) 40 mg IVPUSH ONETIME ONE; Protocol Stop: 08/09/20 18:58 Last Admin: 08/09/20 19:07 Dose: 40 mg Documented by: Labetalol HCl (Labetalol 100 Mg/20 Ml Mdv) 20 mg IVPUSH ONETIME ONE; Protocol Stop: 08/09/20 23:45 Last Admin: 08/09/20 23:50 Dose: 20 mg Documented by: Labetalol HCl (Labetalol 100 Mg Tab) 100 mg PO ONETIME ONE Stop: 08/10/20 00:14 Last Admin: 08/10/20 00:29 Dose: 100 mg Documented by: Misoprostol (Misoprostol 25 Mcg (1/4 Of 100 Mcg) Tab) 25 mcg PO ONETIME ONE Stop: 08/09/20 14:47 Last Admin: 08/09/20 15:13 Dose: 25 mcg Documented by: Misoprostol (Misoprostol 25 Mcg (1/4 Of 100 Mcg) Tab) 25 mcg VAG ONETIME ONE Stop: 08/09/20 15:31 Last Admin: 08/09/20 15:38 Dose: 25 mcg Documented by: Morphine Sulfate (Morphine Pf 10 Mg/10 Ml Sdv) Confirm Administered Dose 10 mg .ROUTE .STK-MED ONE Stop: 08/09/20 19:53 Nifedipine (Nifedipine 30 Mg Tab.Er) 90 mg PO ONETIME ONE Stop: 08/10/20 00:15 Nifedipine (Nifedipine 30 Mg Tab.Er) Confirm Administered Dose 90 mg .ROUTE .STK-MED ONE Stop: 08/10/20 00:20 Last Admin: 08/10/20 00:27 Dose: 90 mg Documented by: Octyl Cyanoacrylate (Octyl 2-Cyanoacrylate 1 Tube) Confirm Administered Dose 1 applic .ROUTE .STK-MED ONE Stop: 08/09/20 21:26 Oxytocin (Oxytocin 10 Units/1 Ml Sdv) Confirm Administered Dose 30 unit .ROUTE .STK-MED ONE Stop: 08/09/20 20:07 - Interaction Disposition, : [place] in Room with Family Infant Interaction: Holding Infant Infant Feeding: Attempted ; Nursed Fair/Poor Support Person: Significant Other - Exam General: Alert, Oriented HEENT: Pupils Equal Neck: Supple Lungs: Clear to Auscultation, Normal Respiratory Effort Cardiovascular: Regular Rate, Regular Rhythm GI/Abdominal Exam: Normal Bowel Sounds, Soft, Non-Tender, No Organomegaly, No Distention, No Abnormal Bruit, No Mass, Pelvis Stable Extremities: Normal Inspection, Normal Range of Motion, Non-Tender, No Pedal Edema, Normal Capillary Refill Skin: Warm, Dry, Intact Wound/Incisions: Healing Well Neurological: No New Focal Deficit Psy/Mental Status: Alert, Normal Affect, Normal Mood - Problem List Review Problem List Initiated/Reviewed/Updated: Yes - My Orders Last 24 Hours: My Active Orders 08/09/20 Lunch Regular Diet [DIET] 08/09/20 11:33 Electronic Heart Tones Ext w TOCO [WOMSER] Per Unit Routine 08/09/20 11:36 Heart Tones [RC] ASDIRECTED 08/09/20 11:52 Up ad Santa [RC] ASDIRECTED Vaginal Exam [RC] Click to Edit Vital Signs [RC] PER UNIT ROUTINE Resuscitation Status Routine 08/09/20 13:04 RPR (SYPHILIS SERO) W/ RFLX [REF] Routine 08/09/20 14:08 Butorphanol [Stadol] 1 mg IVPUSH Q1H PRN Carboprost Tromethamine [Hemabate DS] 250 mcg IM ASDIRECTED PRN Lidocaine 1% [Xylocaine 1%] 50 ml INJECT ONETIME PRN Methylergonovine [Methergine] 0.2 mg IM ASDIRECTED PRN Nalbuphine [Nubain] 10 mg IVPUSH Q1H PRN Sodium Chloride 0.9% [Normal Saline] 10 ml IV ASDIRECTED PRN Sodium Chloride 0.9% [Saline Flush] 10 ml FLUSH ASDIRECTED PRN Sodium Chloride 0.9% [Saline Flush] 2.5 ml FLUSH ASDIRECTED PRN Tranexamic Acid [Cyklokapron] 1,000 mg Sodium Chloride 0.9% [Normal Saline] 100 ml IV ONETIME Water For Irrigation,Sterile [Sterile Water for Irrigation] 1,000 ml IRR ASDIRECTED PRN miSOPROStoL [Cytotec] 200 mcg PO ONETIME PRN 08/09/20 14:09 Heart Tones [RC] CONTINUOUS Non Stress Test [RC] PER UNIT ROUTINE May Shower [RC] ASDIRECTED Notify Provider [RC] PRN Up ad Santa [RC] ASDIRECTED Vaginal Exam [RC] PRN Vital Signs [RC] PER UNIT ROUTINE Scalp Electrode [WOMSER] Per Unit Routine Peripheral IV Insertion Adult [OM.PC] Routine 08/09/20 14:15 Lactated Ringers [Ringers, Lactated] 1,000 ml IV ASDIRECTED Oxytocin/0.9 % Sodium Chloride [Oxytocin 30 Unit/500 ML-NS] 30 unit in 500 ml IV TITRATE 08/09/20 19:38 Procedure Site Prep Instruct [RC] ASDIRECTED Schedule Procedure [COMM] Per Unit Routine 08/09/20 19:45 Lactated Ringers [Ringers, Lactated] 1,000 ml IV BOLUS Oxytocin/0.9 % Sodium Chloride [Oxytocin 30 Unit/500 ML-NS] 30 unit in 500 ml IV TITRATE 08/09/20 21:14 Patient Status [ADT] Routine Ambulate [RC] PER UNIT ROUTINE Communication Order [RC] PER UNIT ROUTINE Communication Order [RC] PER UNIT ROUTINE Communication Order [RC] Per Unit Routine May Shower [RC] ASDIRECTED RT Incentive Spirometry [RC] Q2HWA Vital Signs [RC] PER UNIT ROUTINE Acetaminophen/oxyCODONE [Percocet 325-5 MG] 1 tab PO Q4H PRN Acetaminophen/oxyCODONE [Percocet 325-5 MG] 2 tab PO Q4H PRN Lanolin [Lansinoh HPA] See Dose Instructions TOP ASDIRECTED PRN Methylergonovine [Methergine] 0.2 mg IM ONETIME PRN Ondansetron [Zofran] 4 mg IVPUSH Q4H PRN Oxytocin [Pitocin] 10 unit IM ASDIRECTED PRN Tranexamic Acid [Cyklokapron] 1,000 mg Sodium Chloride 0.9% [Normal Saline] 100 ml IV ONETIME bisacodyL [Dulcolax] 10 mg RECTAL ONETIME PRN diphenhydrAMINE [Benadryl] 25 mg IVPUSH Q6H PRN miSOPROStoL [Cytotec] 1,000 mcg RECTAL ONETIME PRN Assess Lochia [WOMSER] Per Unit Routine Assess Uterine Involution [WOMSER] Per Unit Routine Breast Pump [WOMSER] Per Unit Routine Peripheral IV Discontinue [OM.PC] Routine Sequential Compression Device [OM.PC] Per Unit Routine 08/09/20 21:15 Antiembolic Devices [RC] PER UNIT ROUTINE Lactated Ringers [Ringers, Lactated] 1,000 ml IV ASDIRECTED 08/10/20 03:15 Ketorolac [Toradol] 30 mg IVPUSH Q6H 08/10/20 Breakfast Regular Diet [DIET] 08/10/20 09:00 Docusate Sodium [Colace] 100 mg PO BID 08/11/20 03:15 Ibuprofen [Motrin] 800 mg PO Q8H PRN - Assessment Assessment:: Doing well - Plan Plan:: Patient is 36+4 she is chronic hypertensive on labetalol and Procardia he came to the office today with her blood pressure is between 180/110-175/109 she have no headache and no proteinuria however her blood pressure is risky for her to send home I sent her to labor and delivery and she have a reactive NST ultrasound confirmed the placenta is normal in vertex presentation had lab work is normal she was originally scheduled for elective induction next week cause of her chronic hypertension. Closing her blood pressure is elevated today significantly I am going to admit her to the hospital today and start induction with Cytotec and Pitocin explained to the patient the process of induction and the medication we use. Overall the protocol of PIH/hypertension for management of her blood pressure while she is in labor.
--- NOTE | 2020-08-10 09:01 | OR ---
SURGEON: Leon Red MD DATE OF PROCEDURE: 08/09/2020 PREOPERATIVE DIAGNOSES: 1. Intrauterine at 36 plus 4 weeks. 2. Essential hypertension. 3. Superimposed -induced hypertension. 4. Non-reassuring heart rate. 5. Remote from delivery. POSTOPERATIVE DIAGNOSES: 1. Intrauterine at 36 plus 4 weeks. 2. Essential hypertension. 3. Superimposed -induced hypertension. 4. Non-reassuring heart rate. 5. Remote from delivery. OPERATION PERFORMED: Primary low transverse section. PRIMARY SURGEON: Leon Red MD. FINANCIAL CONSULTANT: 1. Amelie Liz. 2. Dispatcher Service, Dr. Mercedes Devi. ESTIMATED BLOOD LOSS: 700 mL. ANESTHESIA: Spinal, Dr. Conrad Rahman. COMPLICATION: None. INDICATION FOR SURGERY: This patient is 29 years old. She is para 4-0-0-4. She has essential hypertension, is labile, difficult to control through the entirety of her . She is on two medication for her high blood pressures, and she has recommendation by the Maternal Medicine to be delivered early once she pass 36 weeks, if she can hold that long. However, the patient came to the office today at 36 plus 4. The patient's blood pressure was 180/110 and 170/105. She was sent to Labor and Delivery and for monitoring blood pressure. Her blood pressure continued to be high. The high blood pressure protocol was used on the patient. However, the patient's blood pressure continued to be not under control, and the heart rate had variable deceleration with late component. The patient was on 1 cm. She was remote from delivery. A decision was made to do primary low-transverse section. PROCEDURE IN DETAIL: The patient was brought to the OR, properly identified. After adequate level of spinal anesthesia with a Santos catheter in the bladder, the patient was prepped and draped in the sterile fashion as usual. A low transverse Pfannenstiel skin incision was done. Fredi's fascia and rectus fascia were opened in direction of the incision. The two recti muscles were . The peritoneal cavity was entered. The bladder flap was raised in the usual manner. Pushing the bladder away from the lower uterine segment, a low-transverse uterine incision was done, extended manually with the hand. The fetus was in the vertex position. Delivered without any problem. Cried immediately. score and weight are not available at this time of the dictation. The placenta delivered spontaneous, complete, and intact. Repair of the lower uterine segment was done with 2-0 Vicryl continuous interlocking in 2 layers. Reperitonealization done with 3-0 Vicryl continuous. The peritoneal cavity was evacuated completely from all blood and blood clot. Inspection of the incision showed no oozing and no bleeding, and the peritoneal cavity was closed with 3-0 Vicryl continuous. The rectus fascia was closed with #1 PDS double strand continuous. Fredi's fascia with 3-0 Vicryl continuous. The skin was closed with 3-0 Vicryl in a subcuticular fashion on a Edmund needle. Instrument and sponge count was correct. The patient tolerated the procedure well, went to recovery room in stable general condition. BRUNO NOVA /[id number]
--- NOTE | 2020-08-10 09:14 | PCM48HPAN ---
Post Anesthesia Note - EVALUATION WITHIN 48HRS OF ANESTHETIC Vital Signs in Normal Range: Yes Patient Participated in Evaluation: Yes Respiratory Function Stable: Yes Airway Patent: Yes Cardiovascular Function Stable: Yes Hydration Status Stable: Yes Pain Control Satisfactory: Yes Nausea and Vomiting Control Satisfactory: Yes Mental Status Recovered: Yes Vital Signs: Last Vital Signs Temp 98.2 F 08/10/20 08:00 Pulse 75 08/10/20 08:00 Resp 18 08/10/20 08:00 BP 122/68 08/10/20 08:00 Pulse Ox 98 08/10/20 08:00
[2020-08-10] MEDS: Docusate Sodium 100 MG Cap PO SCH ×2 (09:22→21:17)
[2020-08-10] MEDS: Labetalol 100 MG Tab PO SCH (11:02)
[2020-08-10] MEDS: NIFEdipine 30 MG Tab.ER PO SCH (12:00)
[2020-08-11] MEDS: Ibuprofen 800 MG Tab PO PRN ×2 (03:18→13:50)
--- NOTE | 2020-08-11 08:15 | PCM.PNPP ---
- General Info Date of Service: 08/11/20 Admission Dx/Problem (Free Text): Patient Status Order with Admit Dx/Problem 08/09/20 11:10 Patient Status [ADT] Routine 08/09/20 14:09 Patient Status [ADT] Routine Admission Diagnosis/Problem Admission Diagnosis/Problem Dayana is a 29 yo current PPD2 s/p primary LTCS at 36+4 weeks gestation (NI(LMP) 09/02/2020) following NRFHTs during medical IOL for severe range BPs. O pos, RI, GBS neg. Patient has no complaints or concerns at this time. Patient is breast and bottle feeding well, resting comfortably in bed with at bedside. Patient reports she is eating, voiding, ambulating independently and without difficulty. Patient denies any problems or concerns at this time except mild-moderate intermittent uterine cramping relieved with Tylenol and Ibuprofen. Patient reports small vaginal bleeding with no clots. Patient verbalizes her readiness to be discharged home today. Low transverse incision dressing clean, dry, intact. Functional Status: Reports: Pain Controlled, Tolerating Diet, Ambulating, Urinating - Review of Systems General: Reports: No Symptoms HEENT: Reports: No Symptoms Pulmonary: Reports: No Symptoms Cardiovascular: Reports: No Symptoms Gastrointestinal: Reports: No Symptoms Genitourinary: Reports: No Symptoms Musculoskeletal: Reports: No Symptoms Skin: Reports: No Symptoms Neurological: Reports: No Symptoms Psychiatric: Reports: No Symptoms - General Info Date of Service: 08/11/20 - Patient Data Vital Signs - Most Recent: Last Vital Signs Temp 98.2 F 08/11/20 05:26 Pulse 79 08/11/20 05:26 Resp 16 08/11/20 05:26 BP 116/78 08/11/20 05:26 Pulse Ox 100 08/11/20 05:26 Weight - Most Recent: 254 lb Med Orders - Current: Current Medications Albuterol (Albuterol 0.083% 2.5 Mg/3 Ml Neb Soln) 2.5 mg NEB ONETIME PRN PRN Reason: Wheezing Bisacodyl (Bisacodyl 10 Mg Supp) 10 mg RECTAL ONETIME PRN PRN Reason: Constipation Butorphanol Tartrate (Butorphanol 1 Mg/Ml Sdv) 1 mg IVPUSH Q1H PRN PRN Reason: Pain (severe 7-10) Carboprost Tromethamine (Carboprost Tromethamine 250 Mcg/1 Ml Amp) 250 mcg IM ASDIRECTED PRN PRN Reason: Post Hemorrhage Diphenhydramine HCl (Diphenhydramine 50 Mg/Ml Sdv) 25 mg IVPUSH Q6H PRN PRN Reason: Itching or Nausea Docusate Sodium (Docusate Sodium 100 Mg Cap) 100 mg PO BID [facility] Last Admin: 08/10/20 21:17 Dose: 100 mg Documented by: Droperidol (Droperidol 5 Mg/2 Ml Sdv) 0.625 mg IVPUSH ONETIME PRN PRN Reason: Nausea/Vomiting Emollient Ointment (Lanolin 100% Cream 7 Gm Tube) 0 gm TOP ASDIRECTED PRN PRN Reason: Sore Nipples Ephedrine Sulfate (Ephedrine 50 Mg/Ml Sdv) 10 mg IVPUSH Q5M PRN PRN Reason: Hypotension Fentanyl (Fentanyl 100 Mcg/2 Ml Sdv) 50 mcg IVPUSH Q1H PRN PRN Reason: Pain (severe 7-10) Fentanyl (Fentanyl 100 Mcg/2 Ml Sdv) 50 mcg IVPUSH Q5M PRN PRN Reason: Pain (mild 1-3) Hydromorphone HCl (Hydromorphone 2 Mg/Ml Syringe) 0.5 mg IVPUSH Q10M PRN PRN Reason: Pain (moderate 4-6) Lactated Ringer's (Ringers, Lactated) 1,000 mls @ 150 mls/hr IV ASDIRECTED [facility] Last Admin: 08/09/20 18:36 Dose: 150 mls/hr Documented by: Oxytocin/Sodium Chloride (Oxytocin 30 Unit/500 Ml-Ns) 30 unit in 500 mls @ 999 mls/hr IV TITRATE [facility] Tranexamic Acid 1,000 mg/ (Sodium Chloride) 110 mls @ 660 mls/hr IV ONETIME PRN PRN Reason: Bleeding Lactated Ringer's (Ringers, Lactated) 1,000 mls @ 500 mls/hr IV BOLUS [facility] Oxytocin/Sodium Chloride (Oxytocin 30 Unit/500 Ml-Ns) 30 unit in 500 mls @ 250 mls/hr IV TITRATE [facility] Lactated Ringer's (Ringers, Lactated) 1,000 mls @ 125 mls/hr IV ASDIRECTED [facility] Tranexamic Acid 1,000 mg/ (Sodium Chloride) 110 mls @ 660 mls/hr IV ONETIME PRN PRN Reason: Bleeding Ibuprofen (Ibuprofen 800 Mg Tab) 800 mg PO Q8H PRN PRN Reason: mild pain or fever Last Admin: 08/11/20 03:18 Dose: 800 mg Documented by: Labetalol HCl (Labetalol 100 Mg/20 Ml Mdv) 40 mg IVPUSH ONETIME PRN; Protocol PRN Reason: Hypertension Labetalol HCl (Labetalol 100 Mg Tab) 100 mg PO DAILY [facility] Last Admin: 08/10/20 11:02 Dose: 100 mg Documented by: Lidocaine HCl (Lidocaine 1% 50 Ml Mdv) 50 ml INJECT ONETIME PRN PRN Reason: Laceration repair Methylergonovine Maleate (Methylergonovine 0.2 Mg/1 Ml Amp) 0.2 mg IM ONETIME PRN PRN Reason: Excessive Vaginal Bleeding Metoclopramide HCl (Metoclopramide 10 Mg/2 Ml Sdv) 10 mg IVPUSH ONETIME PRN PRN Reason: Nausea/Vomiting Misoprostol (Misoprostol 200 Mcg Tab) 200 mcg PO ONETIME PRN PRN Reason: Post Hemorrhage Misoprostol (Misoprostol 200 Mcg Tab) 1,000 mcg RECTAL ONETIME PRN PRN Reason: excessive bleeding Morphine Sulfate (Morphine 2 Mg/Ml Syringe) 2 mg IVPUSH Q10M PRN PRN Reason: Pain (severe 7-10) Nalbuphine HCl (Nalbuphine 10 Mg/1 Ml Vial) 10 mg IVPUSH Q1H PRN PRN Reason: Pain (severe 7-10) Nalbuphine HCl (Nalbuphine 10 Mg/1 Ml Vial) 5 mg IVPUSH ASDIRECTED PRN PRN Reason: Itching Nifedipine (Nifedipine 30 Mg Tab.Er) 90 mg PO DAILY [facility] Last Admin: 08/10/20 12:00 Dose: 90 mg Documented by: Ondansetron HCl (Ondansetron 4 Mg/2 Ml Sdv) 4 mg IVPUSH ONETIME PRN PRN Reason: Nausea/Vomiting Ondansetron HCl (Ondansetron 4 Mg/2 Ml Sdv) 4 mg IVPUSH Q4H PRN PRN Reason: Nausea/Vomiting Oxycodone/Acetaminophen (Acetaminophen/Oxycodone 325-5 Mg Tab) 1 tab PO Q4H PRN PRN Reason: Pain (severe 7-10) Oxycodone/Acetaminophen (Acetaminophen/Oxycodone 325-5 Mg Tab) 2 tab PO Q4H PRN PRN Reason: Pain (severe 7-10) Oxytocin (Oxytocin 10 Units/1 Ml Sdv) 10 unit IM ASDIRECTED PRN PRN Reason: Excessive Vaginal Bleeding Phenylephrine HCl (Phenylephrine/Normal Saline 100 Mcg/Ml 10 Ml Syringe) 0.1 mg IVPUSH Q5M PRN PRN Reason: Hypotension Sodium Chloride (Sodium Chloride 0.9% 10 Ml Syringe) 10 ml FLUSH ASDIRECTED PRN PRN Reason: Keep Vein Open Sodium Chloride (Sodium Chloride 0.9% 2.5 Ml Syringe) 2.5 ml FLUSH ASDIRECTED PRN PRN Reason: Keep Vein Open Sodium Chloride (Sodium Chloride 0.9% 10 Ml Sdv) 10 ml IV ASDIRECTED PRN PRN Reason: IV Use Sterile Water (Water For Irrigation,Sterile 1,000 Ml Container) 1,000 ml IRR ASDIRECTED PRN PRN Reason: delivery Discontinued Medications Cefazolin Sodium (Cefazolin 1 Gm Vial) Confirm Administered Dose 2 gm .ROUTE .STK-MED ONE Stop: 08/09/20 20:01 Citric Acid/Sodium Citrate (Citric Acid/Sodium Citrate Solution 30 Ml Cup) 30 ml PO ONETIME ONE Stop: 08/09/20 19:38 Last Admin: 08/10/20 09:13 Dose: Not Given Documented by: Diphenhydramine HCl (Diphenhydramine 50 Mg/Ml Sdv) 12.5 mg IVPUSH Q2H PRN PRN Reason: Itching Fentanyl (Fentanyl 100 Mcg/2 Ml Sdv) Confirm Administered Dose 100 mcg .ROUTE .STK-MED ONE Stop: 08/09/20 19:53 Hydrochlorothiazide (Hydrochlorothiazide 12.5 Mg Cap) 12.5 mg PO ONETIME ONE Stop: 08/10/20 02:07 Last Admin: 08/10/20 02:43 Dose: 12.5 mg Documented by: Cefazolin Sodium/Dextrose 2 gm (/ Premix) 50 mls @ 100 mls/hr IV ONETIME ONE Stop: 08/09/20 20:06 Last Admin: 08/10/20 09:13 Dose: Not Given Documented by: Ketorolac Tromethamine (Ketorolac 30 Mg/Ml Sdv) 30 mg IVPUSH Q6H KEKE Stop: 08/10/20 21:16 Last Admin: 08/10/20 21:17 Dose: 30 mg Documented by: Labetalol HCl (Labetalol 100 Mg Tab) 100 mg PO ONETIME ONE Stop: 08/09/20 14:47 Last Admin: 08/09/20 15:13 Dose: 100 mg Documented by: Labetalol HCl (Labetalol 100 Mg/20 Ml Mdv) 20 mg IVPUSH ONETIME ONE; Protocol Stop: 08/09/20 15:07 Last Admin: 08/09/20 15:35 Dose: 20 mg Documented by: Labetalol HCl (Labetalol 100 Mg/20 Ml Mdv) 40 mg IVPUSH ONETIME ONE; Protocol Stop: 08/09/20 16:23 Last Admin: 08/09/20 16:30 Dose: 40 mg Documented by: Labetalol HCl (Labetalol 100 Mg/20 Ml Mdv) 20 mg IVPUSH ONETIME ONE; Protocol Stop: 08/09/20 18:21 Last Admin: 08/09/20 18:26 Dose: 20 mg Documented by: Labetalol HCl (Labetalol 100 Mg/20 Ml Mdv) 40 mg IVPUSH ONETIME ONE; Protocol Stop: 08/09/20 18:58 Last Admin: 08/09/20 19:07 Dose: 40 mg Documented by: Labetalol HCl (Labetalol 100 Mg/20 Ml Mdv) 20 mg IVPUSH ONETIME ONE; Protocol Stop: 08/09/20 23:45 Last Admin: 08/09/20 23:50 Dose: 20 mg Documented by: Labetalol HCl (Labetalol 100 Mg Tab) 100 mg PO ONETIME ONE Stop: 08/10/20 00:14 Last Admin: 08/10/20 00:29 Dose: 100 mg Documented by: Methylergonovine Maleate (Methylergonovine 0.2 Mg/1 Ml Amp) 0.2 mg IM ASDIRECTE D PRN PRN Reason: Post Hemorrhage Misoprostol (Misoprostol 25 Mcg (1/4 Of 100 Mcg) Tab) 25 mcg PO ONETIME ONE Stop: 08/09/20 14:47 Last Admin: 08/09/20 15:13 Dose: 25 mcg Documented by: Misoprostol (Misoprostol 25 Mcg (1/4 Of 100 Mcg) Tab) 25 mcg VAG ONETIME ONE Stop: 08/09/20 15:31 Last Admin: 08/09/20 15:38 Dose: 25 mcg Documented by: Morphine Sulfate (Morphine Pf 10 Mg/10 Ml Sdv) Confirm Administered Dose 10 mg .ROUTE .STK-MED ONE Stop: 08/09/20 19:53 Naloxone HCl (Naloxone 0.4 Mg/Ml Syringe) 0.1 mg IVPUSH ONETIME PRN PRN Reason: Respiratory Depression Stop: 08/10/20 19:57 Naloxone HCl (Naloxone 0.4 Mg/Ml Syringe) 0.1 mg IVPUSH ASDIRECTED PRN PRN Reason: Respiratory Depression Nifedipine (Nifedipine 30 Mg Tab.Er) 90 mg PO ONETIME ONE Stop: 08/10/20 00:15 Last Admin: 08/10/20 09:14 Dose: Not Given Documented by: Nifedipine (Nifedipine 30 Mg Tab.Er) Confirm Administered Dose 90 mg .ROUTE .STK-MED ONE Stop: 08/10/20 00:20 Last Admin: 08/10/20 00:27 Dose: 90 mg Documented by: Octyl Cyanoacrylate (Octyl 2-Cyanoacrylate 1 Tube) Confirm Administered Dose 1 applic .ROUTE .STK-MED ONE Stop: 08/09/20 21:26 Last Admin: 08/10/20 09:14 Dose: Not Given Documented by: Ondansetron HCl (Ondansetron 4 Mg/2 Ml Sdv) 4 mg IVPUSH Q6H PRN PRN Reason: Nausea Oxycodone/Acetaminophen (Acetaminophen/Oxycodone 325-5 Mg Tab) 2 tab PO Q6H PRN PRN Reason: Pain (moderate 4-6) Oxytocin (Oxytocin 10 Units/1 Ml Sdv) Confirm Administered Dose 30 unit .ROUTE .STK-MED ONE Stop: 08/09/20 20:07 - Infant Interaction Disposition, : in Room with Family Infant Interaction: Holding Infant Infant Feeding: Attempted ; Nursed Fair/Poor - Recovery Exam Fundal Tone: Firm Fundal Level: At Umbilicus Fundal Placement: Midline Lochia Amount: Small Lochia Color: Rubra/Red Perineum Description: Intact, Minimal Bruising/Swelling Episiotomy/Laceration: None Bladder Status: Voiding Urinary Elimination: Voided - Exam General: Alert, Oriented, Cooperative, No Acute Distress HEENT: Pupils Equal, Pupils Reactive, Mucous Membr. Moist/Belk Neck: Supple Lungs: Clear to Auscultation, Normal Respiratory Effort Cardiovascular: Regular Rate, Regular Rhythm GI/Abdominal Exam: Normal Bowel Sounds, Soft, Non-Tender, No Organomegaly, No Distention Extremities: Normal Inspection, Normal Range of Motion, Non-Tender, No Pedal Edema, Normal Capillary Refill Skin: Warm, Dry, Intact Wound/Incisions: Dressing Dry and Intact, No Drainage Neurological: No New Focal Deficit Psy/Mental Status: Alert, Normal Affect, Normal Mood - Problem List & Annotations (1) S/P primary low transverse SNOMED Code(s): 480471445, 39002606, [id number], [id number], [id number] Code(s): Z98.891 - HISTORY OF UTERINE SCAR FROM PREVIOUS SURGERY Status: Acute Priority: High Current Visit: Yes (2) Chronic hypertension SNOMED Code(s): 77742519, 18517487 Code(s): I10 - ESSENTIAL (PRIMARY) HYPERTENSION Status: Acute Priority: High Current Visit: Yes (3) Lactating mother SNOMED Code(s): 620224650, 871297098 Code(s): Z39.1 - ENCOUNTER FOR CARE AND EXAMINATION OF LACTATING MOTHER Status: Acute Priority: High Current Visit: Yes - Problem List Review Problem List Initiated/Reviewed/Updated: Yes - Assessment Assessment:: Doing well - Plan Plan:: Plan to continue inpatient course. Hemodynamically stable, afebrile; asymptomatic. Continue 100 mg labetolol + 90 mg nifedipine PO daily. BPs 110s/70s. Hemoglobin 9.6. Serial CBC+CMP labs stable. Continue PO analgesia as ordered. Continue feeding baby, eating, voiding, ambulating independently. Plan to D/C today, Dr. Red en route to bedside this am.
[2020-08-11] MEDS: Acetaminophen/oxyCODONE 325-5 MG Tab PO PRN ×3 (08:20→19:50)
[2020-08-11] MEDS: Docusate Sodium 100 MG Cap PO SCH ×2 (08:20→21:21)
[2020-08-11] MEDS: Labetalol 100 MG Tab PO SCH (09:19)
[2020-08-11] MEDS: NIFEdipine 30 MG Tab.ER PO SCH (09:20)
--- NOTE | 2020-08-11 09:52 | PCM.DCSUM1 ---
Discharge Summary - Hospital Course Free Text/Narrative:: Dayana is a 29 yo current PPD2 s/p primary LTCS at 36+4 weeks gestation (NI(LMP) 09/02/2020) following NRFHTs during medical IOL for severe range BPs. O pos, RI, GBS neg. Patient has no complaints or concerns at this time. Patient is breast and bottle feeding well, resting comfortably in bed with at bedside. Patient reports she is eating, voiding, ambulating independently and without difficulty. Patient denies any problems or concerns at this time except mild-moderate intermittent uterine cramping relieved with Tylenol and Ibuprofen. Patient reports small vaginal bleeding with no clots. Patient verbalizes her readiness to be discharged home today. Low transverse incision dressing clean, dry, intact. Dr. Red reviewed, and agreeable with POC. Diagnosis: Stroke: No - Discharge Data Discharge Date: 08/11/20 Discharge Disposition: Home, Self-Care 01 Condition: Good - Referral to Home Health Primary Care Physician: PCP None - Discharge Diagnosis/Problem(s) (1) S/P primary low transverse SNOMED Code(s): 307782304, [id number], [id number], [id number], [id number] ICD Code: Z98.891 - HISTORY OF UTERINE SCAR FROM PREVIOUS SURGERY Status: Acute Priority: High Current Visit: Yes (2) Chronic hypertension SNOMED Code(s): 03308903, [id number] ICD Code: I10 - ESSENTIAL (PRIMARY) HYPERTENSION Status: Acute Priority: High Current Visit: Yes (3) Lactating mother SNOMED Code(s): 517577498, 800765702 ICD Code: Z39.1 - ENCOUNTER FOR CARE AND EXAMINATION OF LACTATING MOTHER Status: Acute Priority: High Current Visit: Yes - Patient Summary/Data Operative Procedure(s) Performed: Primary C/Section - Patient Instructions Diet: Usual Diet as Tolerated, Regular Diet as Tolerated, Drink 8-10+ Glasses/Day Activity: As Tolerated, No Strenuous Activities, Rest and Relax Today Driving: May Drive Today Showering/Bathing: May Shower Showering/Bathing, Other: May sitz bathe for perineal comfort. Do not submerse incision. Wound/Incision Care: Change Dressing Daily Notify Provider of: Fever, Increased Pain, Swelling and Redness, Drainage, Nausea and/or Vomiting - Discharge Plan *PRESCRIPTION DRUG MONITORING PROGRAM REVIEWED*: No *COPY OF PRESCRIPTION DRUG MONITORING REPORT IN PATIENT MARLENE: No Prescriptions/Med Rec: Docusate Sodium [Colace] 100 mg PO BID #60 cap Ibuprofen [Motrin] 800 mg PO Q8H PRN #90 tablet PRN Reason: mild pain or fever Acetaminophen/oxyCODONE [Percocet 325-5 MG] 1 tab PO Q4H PRN #30 tablet PRN Reason: Pain (Severe 7-10) Home Medications: Home Meds Vit Calc,Iron,Folic [ Vitamins] 1 tab PO DAILY 10/07/17 [History] Aspirin 81 mg PO DAILY 03/23/20 [History] NIFEdipine [Nifedipine ER] 1 tab PO DAILY 04/30/20 [History] Acetaminophen/oxyCODONE [Percocet 325-5 MG] 1 tab PO Q4H PRN #30 tablet 08/11/20 [Rx] Docusate Sodium [Colace] 100 mg PO BID #60 cap 08/11/20 [Rx] Ibuprofen [Motrin] 800 mg PO Q8H PRN #90 tablet 08/11/20 [Rx] Labetalol [Normodyne] 100 mg PO DAILY tablet 08/11/20 [Rx] - Discharge Summary/Plan Comment DC Time >30 min.: Yes Discharge Summary/Plan Comment: Warning S/Ss, when to call for help discussed; no questions. RTO in 1 week for BP check. RTO in 6 weeks for PPV. - General Info Date of Service: 08/11/20 Admission Dx/Problem (Free Text: Patient Status Order with Admit Dx/Problem 08/09/20 11:10 Patient Status [ADT] Routine 08/09/20 14:09 Patient Status [ADT] Routine Admission Diagnosis/Problem Admission Diagnosis/Problem Dayana is a 29 yo current PPD2 s/p primary LTCS at 36+4 weeks gestation (NI(LMP) 09/02/2020) following NRFHTs during medical IOL for severe range BPs. O pos, RI, GBS neg. Patient has no complaints or concerns at this time. Patient is breast and bottle feeding well, resting comfortably in bed with at bedside. Patient reports she is eating, voiding, ambulating independently and without difficulty. Patient denies any problems or concerns at this time except mild-moderate intermittent uterine cramping relieved with Tylenol and Ibuprofen. Patient reports small vaginal bleeding with no clots. Patient verbalizes her readiness to be discharged home today. Low transverse incision dressing clean, dry, intact. Functional Status: Reports: Pain Controlled, Tolerating Diet, Ambulating, Urin ating - Review of Systems General: Reports: No Symptoms HEENT: Reports: No Symptoms Pulmonary: Reports: No Symptoms Cardiovascular: Reports: No Symptoms Gastrointestinal: Reports: No Symptoms Genitourinary: Reports: No Symptoms Musculoskeletal: Reports: No Symptoms Skin: Reports: No Symptoms Neurological: Reports: No Symptoms Psychiatric: Reports: No Symptoms - Patient Data Vitals - Most Recent: Last Vital Signs Temp 98.4 F 08/11/20 07:58 Pulse 85 08/11/20 09:19 Resp 16 08/11/20 07:58 BP 137/84 08/11/20 09:20 Pulse Ox 99 08/11/20 07:58 Weight - Most Recent: 254 lb Med Orders - Current: Current Medications Albuterol (Albuterol 0.083% 2.5 Mg/3 Ml Neb Soln) 2.5 mg NEB ONETIME PRN PRN Reason: Wheezing Bisacodyl (Bisacodyl 10 Mg Supp) 10 mg RECTAL ONETIME PRN PRN Reason: Constipation Butorphanol Tartrate (Butorphanol 1 Mg/Ml Sdv) 1 mg IVPUSH Q1H PRN PRN Reason: Pain (severe 7-10) Carboprost Tromethamine (Carboprost Tromethamine 250 Mcg/1 Ml Amp) 250 mcg IM ASDIRECTED PRN PRN Reason: Post Hemorrhage Diphenhydramine HCl (Diphenhydramine 50 Mg/Ml Sdv) 25 mg IVPUSH Q6H PRN PRN Reason: Itching or Nausea Docusate Sodium (Docusate Sodium 100 Mg Cap) 100 mg PO BID KEKE Last Admin: 08/11/20 08:20 Dose: 100 mg Documented by: Droperidol (Droperidol 5 Mg/2 Ml Sdv) 0.625 mg IVPUSH ONETIME PRN PRN Reason: Nausea/Vomiting Emollient Ointment (Lanolin 100% Cream 7 Gm Tube) 0 gm TOP ASDIRECTED PRN PRN Reason: Sore Nipples Ephedrine Sulfate (Ephedrine 50 Mg/Ml Sdv) 10 mg IVPUSH Q5M PRN PRN Reason: Hypotension Fentanyl (Fentanyl 100 Mcg/2 Ml Sdv) 50 mcg IVPUSH Q1H PRN PRN Reason: Pain (severe 7-10) Fentanyl (Fentanyl 100 Mcg/2 Ml Sdv) 50 mcg IVPUSH Q5M PRN PRN Reason: Pain (mild 1-3) Hydromorphone HCl (Hydromorphone 2 Mg/Ml Syringe) 0.5 mg IVPUSH Q10M PRN PRN Reason: Pain (moderate 4-6) Lactated Ringer's (Ringers, Lactated) 1,000 mls @ 150 mls/hr IV ASDIRECTED [facility] Last Admin: 08/09/20 18:36 Dose: 150 mls/hr Documented by: Oxytocin/Sodium Chloride (Oxytocin 30 Unit/500 Ml-Ns) 30 unit in 500 mls @ 999 mls/hr IV TITRATE [facility] Tranexamic Acid 1,000 mg/ (Sodium Chloride) 110 mls @ 660 mls/hr IV ONETIME PRN PRN Reason: Bleeding Lactated Ringer's (Ringers, Lactated) 1,000 mls @ 500 mls/hr IV BOLUS [facility] Oxytocin/Sodium Chloride (Oxytocin 30 Unit/500 Ml-Ns) 30 unit in 500 mls @ 250 mls/hr IV TITRATE [facility] Lactated Ringer's (Ringers, Lactated) 1,000 mls @ 125 mls/hr IV ASDIRECTED [facility] Tranexamic Acid 1,000 mg/ (Sodium Chloride) 110 mls @ 660 mls/hr IV ONETIME PRN PRN Reason: Bleeding Ibuprofen (Ibuprofen 800 Mg Tab) 800 mg PO Q8H PRN PRN Reason: mild pain or fever Last Admin: 08/11/20 03:18 Dose: 800 mg Documented by: Labetalol HCl (Labetalol 100 Mg/20 Ml Mdv) 40 mg IVPUSH ONETIME PRN; Protocol PRN Reason: Hypertension Labetalol HCl (Labetalol 100 Mg Tab) 100 mg PO DAILY [facility] Last Admin: 08/11/20 09:19 Dose: 100 mg Documented by: Lidocaine HCl (Lidocaine 1% 50 Ml Mdv) 50 ml INJECT ONETIME PRN PRN Reason: Laceration repair Methylergonovine Maleate (Methylergonovine 0.2 Mg/1 Ml Amp) 0.2 mg IM ONETIME PRN PRN Reason: Excessive Vaginal Bleeding Metoclopramide HCl (Metoclopramide 10 Mg/2 Ml Sdv) 10 mg IVPUSH ONETIME PRN PRN Reason: Nausea/Vomiting Misoprostol (Misoprostol 200 Mcg Tab) 200 mcg PO ONETIME PRN PRN Reason: Post Hemorrhage Misoprostol (Misoprostol 200 Mcg Tab) 1,000 mcg RECTAL ONETIME PRN PRN Reason: excessive bleeding Morphine Sulfate (Morphine 2 Mg/Ml Syringe) 2 mg IVPUSH Q10M PRN PRN Reason: Pain (severe 7-10) Nalbuphine HCl (Nalbuphine 10 Mg/1 Ml Vial) 10 mg IVPUSH Q1H PRN PRN Reason: Pain (severe 7-10) Nalbuphine HCl (Nalbuphine 10 Mg/1 Ml Vial) 5 mg IVPUSH ASDIRECTED PRN PRN Reason: Itching Nifedipine (Nifedipine 30 Mg Tab.Er) 90 mg PO DAILY KEKE Last Admin: 08/11/20 09:20 Dose: 90 mg Documented by: Ondansetron HCl (Ondansetron 4 Mg/2 Ml Sdv) 4 mg IVPUSH ONETIME PRN PRN Reason: Nausea/Vomiting Ondansetron HCl (Ondansetron 4 Mg/2 Ml Sdv) 4 mg IVPUSH Q4H PRN PRN Reason: Nausea/Vomiting Oxycodone/Acetaminophen (Acetaminophen/Oxycodone 325-5 Mg Tab) 1 tab PO Q4H PRN PRN Reason: Pain (severe 7-10) Last Admin: 08/11/20 08:20 Dose: 1 tab Documented by: Oxycodone/Acetaminophen (Acetaminophen/Oxycodone 325-5 Mg Tab) 2 tab PO Q4H PRN PRN Reason: Pain (severe 7-10) Oxytocin (Oxytocin 10 Units/1 Ml Sdv) 10 unit IM ASDIRECTED PRN PRN Reason: Excessive Vaginal Bleeding Phenylephrine HCl (Phenylephrine/Normal Saline 100 Mcg/Ml 10 Ml Syringe) 0.1 mg IVPUSH Q5M PRN PRN Reason: Hypotension Sodium Chloride (Sodium Chloride 0.9% 10 Ml Syringe) 10 ml FLUSH ASDIRECTED PRN PRN Reason: Keep Vein Open Sodium Chloride (Sodium Chloride 0.9% 2.5 Ml Syringe) 2.5 ml FLUSH ASDIRECTED PRN PRN Reason: Keep Vein Open Sodium Chloride (Sodium Chloride 0.9% 10 Ml Sdv) 10 ml IV ASDIRECTED PRN PRN Reason: IV Use Sterile Water (Water For Irrigation,Sterile 1,000 Ml Container) 1,000 ml IRR ASDIRECTED PRN PRN Reason: delivery Discontinued Medications Cefazolin Sodium (Cefazolin 1 Gm Vial) Confirm Administered Dose 2 gm .ROUTE .STK-MED ONE Stop: 08/09/20 20:01 Citric Acid/Sodium Citrate (Citric Acid/Sodium Citrate Solution 30 Ml Cup) 30 ml PO ONETIME ONE Stop: 08/09/20 19:38 Last Admin: 08/10/20 09:13 Dose: Not Given Documented by: Diphenhydramine HCl (Diphenhydramine 50 Mg/Ml Sdv) 12.5 mg IVPUSH Q2H PRN PRN Reason: Itching Fentanyl (Fentanyl 100 Mcg/2 Ml Sdv) Confirm Administered Dose 100 mcg .ROUTE .STK-MED ONE Stop: 08/09/20 19:53 Hydrochlorothiazide (Hydrochlorothiazide 12.5 Mg Cap) 12.5 mg PO ONETIME ONE Stop: 08/10/20 02:07 Last Admin: 08/10/20 02:43 Dose: 12.5 mg Documented by: Cefazolin Sodium/Dextrose 2 gm (/ Premix) 50 mls @ 100 mls/hr IV ONETIME ONE Stop: 08/09/20 20:06 Last Admin: 08/10/20 09:13 Dose: Not Given Documented by: Ketorolac Tromethamine (Ketorolac 30 Mg/Ml Sdv) 30 mg IVPUSH Q6H KEKE Stop: 08/10/20 21:16 Last Admin: 08/10/20 21:17 Dose: 30 mg Documented by: Labetalol HCl (Labetalol 100 Mg Tab) 100 mg PO ONETIME ONE Stop: 08/09/20 14:47 Last Admin: 08/09/20 15:13 Dose: 100 mg Documented by: Labetalol HCl (Labetalol 100 Mg/20 Ml Mdv) 20 mg IVPUSH ONETIME ONE; Protocol Stop: 08/09/20 15:07 Last Admin: 08/09/20 15:35 Dose: 20 mg Documented by: Labetalol HCl (Labetalol 100 Mg/20 Ml Mdv) 40 mg IVPUSH ONETIME ONE; Protocol Stop: 08/09/20 16:23 Last Admin: 08/09/20 16:30 Dose: 40 mg Documented by: Labetalol HCl (Labetalol 100 Mg/20 Ml Mdv) 20 mg IVPUSH ONETIME ONE; Protocol Stop: 08/09/20 18:21 Last Admin: 08/09/20 18:26 Dose: 20 mg Documented by: Labetalol HCl (Labetalol 100 Mg/20 Ml Mdv) 40 mg IVPUSH ONETIME ONE; Protocol Stop: 08/09/20 18:58 Last Admin: 08/09/20 19:07 Dose: 40 mg Documented by: Labetalol HCl (Labetalol 100 Mg/20 Ml Mdv) 20 mg IVPUSH ONETIME ONE; Protocol Stop: 08/09/20 23:45 Last Admin: 08/09/20 23:50 Dose: 20 mg Documented by: Labetalol HCl (Labetalol 100 Mg Tab) 100 mg PO ONETIME ONE Stop: 08/10/20 00:14 Last Admin: 08/10/20 00:29 Dose: 100 mg Documented by: Methylergonovine Maleate (Methylergonovine 0.2 Mg/1 Ml Amp) 0.2 mg IM ASDIRECTED PRN PRN Reason: Post Hemorrhage Misoprostol (Misoprostol 25 Mcg (1/4 Of 100 Mcg) Tab) 25 mcg PO ONETIME ONE Stop: 08/09/20 14:47 Last Admin: 08/09/20 15:13 Dose: 25 mcg Documented by: Misoprostol (Misoprostol 25 Mcg (1/4 Of 100 Mcg) Tab) 25 mcg VAG ONETIME ONE Stop: 08/09/20 15:31 Last Admin: 08/09/20 15:38 Dose: 25 mcg Documented by: Morphine Sulfate (Morphine Pf 10 Mg/10 Ml Sdv) Confirm Administered Dose 10 mg .ROUTE .STK-MED ONE Stop: 08/09/20 19:53 Naloxone HCl (Naloxone 0.4 Mg/Ml Syringe) 0.1 mg IVPUSH ONETIME PRN PRN Reason: Respiratory Depression Stop: 08/10/20 19:57 Naloxone HCl (Naloxone 0.4 Mg/Ml Syringe) 0.1 mg IVPUSH ASDIRECTED PRN PRN Reason: Respiratory Depression Nifedipine (Nifedipine 30 Mg Tab.Er) 90 mg PO ONETIME ONE Stop: 08/10/20 00:15 Last Admin: 08/10/20 09:14 Dose: Not Given Documented by: Nifedipine (Nifedipine 30 Mg Tab.Er) Confirm Administered Dose 90 mg .ROUTE .STK-MED ONE Stop: 08/10/20 00:20 Last Admin: 08/10/20 00:27 Dose: 90 mg Documented by: Octyl Cyanoacrylate (Octyl 2-Cyanoacrylate 1 Tube) Confirm Administered Dose 1 applic .ROUTE .STK-MED ONE Stop: 08/09/20 21:26 Last Admin: 08/10/20 09:14 Dose: Not Given Documented by: Ondansetron HCl (Ondansetron 4 Mg/2 Ml Sdv) 4 mg IVPUSH Q6H PRN PRN Reason: Nausea Oxycodone/Acetaminophen (Acetaminophen/Oxycodone 325-5 Mg Tab) 2 tab PO Q6H PRN PRN Reason: Pain (moderate 4-6) Oxytocin (Oxytocin 10 Units/1 Ml Sdv) Confirm Administered Dose 30 unit .ROUTE .STK-MED ONE Stop: 08/09/20 20:07 - Exam General: Reports: Alert, Oriented, Cooperative, No Acute Distress HEENT: Reports: Pupils Equal, Pupils Reactive, Mucous Membr. Moist/[place] Neck: Reports: Supple Lungs: Reports: Clear to Auscultation, Normal Respiratory Effort Cardiovascular: Reports: Regular Rate, Regular Rhythm GI/Abdominal Exam: Normal Bowel Sounds, Soft, Non-Tender, No Organomegaly, No Distention (Female) Exam: Normal External Exam, Normal Speculum Exam, Normal Bimanual Exam, Enlarged Uterus (Post uterus, firm U+2), Vaginal Bleeding (Small to moderate rubra lochia, no clots.) Rectal (Female) Exam: Deferred Back Exam: Reports: Normal Inspection, Full Range of Motion Extremities: Normal Inspection, Normal Range of Motion, Non-Tender, No Pedal Edema, Normal Capillary Refill Skin: Reports: Warm, Dry, Intact Wound/Incisions: Reports: Dressing Dry and Intact, No Drainage Neurological: Reports: No New Focal Deficit Psy/Mental Status: Reports: Alert, Normal Affect, Normal Mood
[2020-08-12] MEDS: Ibuprofen 800 MG Tab PO PRN ×3 (01:46→22:07)
[2020-08-12] MEDS: Acetaminophen/oxyCODONE 325-5 MG Tab PO PRN (01:46)
--- NOTE | 2020-08-12 07:43 | PCM.DCSUM1 ---
Discharge Summary - Hospital Course Free Text/Narrative:: Discharge home. Follow up in the clinic in one week for post-op incision check and BP check. Follow up again in the clinic in 6 weeks for routine visit. Diagnosis: Stroke: No Modified [place] Scale: No Symptoms at All Modified [place] Scale Score: 0 - Discharge Data Discharge Date: 08/12/20 Discharge Disposition: Home, Self-Care 01 Condition: Good - Referral to Home Health Primary Care Physician: PCP None - Patient Summary/Data Operative Procedure(s) Performed: Primary C/Section - Patient Instructions Diet: Usual Diet as Tolerated, Regular Diet as Tolerated, Drink 8-10+ Glasses/Day Activity: As Tolerated, No Strenuous Activities, Rest and Relax Today Driving: May Drive Today Showering/Bathing: May Shower Showering/Bathing, Other: May sitz bathe for perineal comfort. Do not submerse incision. Wound/Incision Care: Change Dressing Daily Notify Provider of: Fever, Increased Pain, Swelling and Redness, Drainage, Nausea and/or Vomiting - Discharge Plan *PRESCRIPTION DRUG MONITORING PROGRAM REVIEWED*: No *COPY OF PRESCRIPTION DRUG MONITORING REPORT IN PATIENT MARLENE: No Prescriptions/Med Rec: Docusate Sodium [Colace] 100 mg PO BID #60 cap Ibuprofen [Motrin] 800 mg PO Q8H PRN #90 tablet PRN Reason: mild pain or fever Acetaminophen/oxyCODONE [Percocet 325-5 MG] 1 tab PO Q4H PRN #30 tablet PRN Reason: Pain (Severe 7-10) Home Medications: Home Meds Vit Calc,Iron,Folic [ Vitamins] 1 tab PO DAILY 10/07/17 [History] Aspirin 81 mg PO DAILY 03/23/20 [History] NIFEdipine [Nifedipine ER] 1 tab PO DAILY 04/30/20 [History] Acetaminophen/oxyCODONE [Percocet 325-5 MG] 1 tab PO Q4H PRN #30 tablet 08/11/20 [Rx] Docusate Sodium [Colace] 100 mg PO BID #60 cap 08/11/20 [Rx] Ibuprofen [Motrin] 800 mg PO Q8H PRN #90 tablet 08/11/20 [Rx] Labetalol [Normodyne] 100 mg PO DAILY tablet 08/11/20 [Rx] Patient Handouts: Care After Delivery Referrals: Leon Red MD [Physician] - 09/22/20 3:00 pm (1 week blood pressure and incision check up on 08/16/2020 at 11:15am. 6 week follow-up appointment on 09/22/2020 at 3:00pm.) - Discharge Summary/Plan Comment DC Time >30 min.: Yes - General Info Date of Service: 08/12/20 Admission Dx/Problem (Free Text: Patient Status Order with Admit Dx/Problem 08/09/20 11:10 Patient Status [ADT] Routine 08/09/20 14:09 Patient Status [ADT] Routine Admission Diagnosis/Problem Admission Diagnosis/Problem Dayana is a 29 yo current PPD2 s/p primary LTCS at 36+4 weeks gestation (NI(LMP) 09/02/2020) following NRFHTs during medical IOL for severe range BPs. O pos, RI, GBS neg. Patient has no complaints or concerns at this time. Patient is breast and bottle feeding well, resting comfortably in bed with at bedside. Patient reports she is eating, voiding, ambulating independently and without difficulty. Patient denies any problems or concerns at this time except mild-moderate intermittent uterine cramping relieved with Tylenol and Ibuprofen. Patient reports small vaginal bleeding with no clots. Patient verbalizes her readiness to be discharged home today. Low transverse incision dressing clean, dry, intact. Functional Status: Reports: Pain Controlled, Tolerating Diet, Ambulating, Urinating - Review of Systems General: Reports: No Symptoms HEENT: Reports: No Symptoms Pulmonary: Reports: No Symptoms Cardiovascular: Reports: No Symptoms Gastrointestinal: Reports: No Symptoms Genitourinary: Reports: No Symptoms Musculoskeletal: Reports: No Symptoms Skin: Reports: No Symptoms Neurological: Reports: No Symptoms Psychiatric: Reports: No Symptoms - Patient Data Vitals - Most Recent: Last Vital Signs Temp 98.5 F 08/12/20 05:15 Pulse 100 08/12/20 05:15 Resp 19 08/12/20 05:15 BP 123/85 08/12/20 05:40 Pulse Ox 99 08/12/20 05:15 Weight - Most Recent: 254 lb Lab Results - Last 24 hrs: Laboratory Results - last 24 hr 08/09/20 Range/Units 13:04 RPR Non-Reac (Non-Reac) Med Orders - Current: Current Medications Albuterol (Albuterol 0.083% 2.5 Mg/3 Ml Neb Soln) 2.5 mg NEB ONETIME PRN PRN Reason: Wheezing Bisacodyl (Bisacodyl 10 Mg Supp) 10 mg RECTAL ONETIME PRN PRN Reason: Constipation Butorphanol Tartrate (Butorphanol 1 Mg/Ml Sdv) 1 mg IVPUSH Q1H PRN PRN Reason: Pain (severe 7-10) Carboprost Tromethamine (Carboprost Tromethamine 250 Mcg/1 Ml Amp) 250 mcg IM ASDIRECTED PRN PRN Reason: Post Hemorrhage Diphenhydramine HCl (Diphenhydramine 50 Mg/Ml Sdv) 25 mg IVPUSH Q6H PRN PRN Reason: Itching or Nausea Docusate Sodium (Docusate Sodium 100 Mg Cap) 100 mg PO BID [facility] Last Admin: 08/11/20 21:21 Dose: 100 mg Documented by: Droperidol (Droperidol 5 Mg/2 Ml Sdv) 0.625 mg IVPUSH ONETIME PRN PRN Reason: Nausea/Vomiting Emollient Ointment (Lanolin 100% Cream 7 Gm Tube) 0 gm TOP ASDIRECTED PRN PRN Reason: Sore Nipples Ephedrine Sulfate (Ephedrine 50 Mg/Ml Sdv) 10 mg IVPUSH Q5M PRN PRN Reason: Hypotension Fentanyl (Fentanyl 100 Mcg/2 Ml Sdv) 50 mcg IVPUSH Q1H PRN PRN Reason: Pain (severe 7-10) Fentanyl (Fentanyl 100 Mcg/2 Ml Sdv) 50 mcg IVPUSH Q5M PRN PRN Reason: Pain (mild 1-3) Hydromorphone HCl (Hydromorphone 2 Mg/Ml Syringe) 0.5 mg IVPUSH Q10M PRN PRN Reason: Pain (moderate 4-6) Lactated Ringer's (Ringers, Lactated) 1,000 mls @ 150 mls/hr IV ASDIRECTED [facility] Last Admin: 08/09/20 18:36 Dose: 150 mls/hr Documented by: Oxytocin/Sodium Chloride (Oxytocin 30 Unit/500 Ml-Ns) 30 unit in 500 mls @ 999 mls/hr IV TITRATE [facility] Tranexamic Acid 1,000 mg/ (Sodium Chloride) 110 mls @ 660 mls/hr IV ONETIME PRN PRN Reason: Bleeding Lactated Ringer's (Ringers, Lactated) 1,000 mls @ 500 mls/hr IV BOLUS [facility] Oxytocin/Sodium Chloride (Oxytocin 30 Unit/500 Ml-Ns) 30 unit in 500 mls @ 250 mls/hr IV TITRATE [facility] Lactated Ringer's (Ringers, Lactated) 1,000 mls @ 125 mls/hr IV ASDIRECTED [facility] Tranexamic Acid 1,000 mg/ (Sodium Chloride) 110 mls @ 660 mls/hr IV ONETIME PRN PRN Reason: Bleeding Ibuprofen (Ibuprofen 800 Mg Tab) 800 mg PO Q8H PRN PRN Reason: mild pain or fever Last Admin: 08/12/20 01:46 Dose: 800 mg Documented by: Labetalol HCl (Labetalol 100 Mg/20 Ml Mdv) 40 mg IVPUSH ONETIME PRN; Protocol PRN Reason: Hypertension Labetalol HCl (Labetalol 100 Mg Tab) 100 mg PO DAILY [facility] Last Admin: 08/11/20 09:19 Dose: 100 mg Documented by: Lidocaine HCl (Lidocaine 1% 50 Ml Mdv) 50 ml INJECT ONETIME PRN PRN Reason: Laceration repair Methylergonovine Maleate (Methylergonovine 0.2 Mg/1 Ml Amp) 0.2 mg IM ONETIME PRN PRN Reason: Excessive Vaginal Bleeding Metoclopramide HCl (Metoclopramide 10 Mg/2 Ml Sdv) 10 mg IVPUSH ONETIME PRN PRN Reason: Nausea/Vomiting Misoprostol (Misoprostol 200 Mcg Tab) 200 mcg PO ONETIME PRN PRN Reason: Post Hemorrhage Misoprostol (Misoprostol 200 Mcg Tab) 1,000 mcg RECTAL ONETIME PRN PRN Reason: excessive bleeding Morphine Sulfate (Morphine 2 Mg/Ml Syringe) 2 mg IVPUSH Q10M PRN PRN Reason: Pain (severe 7-10) Nalbuphine HCl (Nalbuphine 10 Mg/1 Ml Vial) 10 mg IVPUSH Q1H PRN PRN Reason: Pain (severe 7-10) Nalbuphine HCl (Nalbuphine 10 Mg/1 Ml Vial) 5 mg IVPUSH ASDIRECTED PRN PRN Reason: Itching Nifedipine (Nifedipine 30 Mg Tab.Er) 90 mg PO DAILY [facility] Last Admin: 08/11/20 09:20 Dose: 90 mg Documented by: Ondansetron HCl (Ondansetron 4 Mg/2 Ml Sdv) 4 mg IVPUSH ONETIME PRN PRN Reason: Nausea/Vomiting Ondansetron HCl (Ondansetron 4 Mg/2 Ml Sdv) 4 mg IVPUSH Q4H PRN PRN Reason: Nausea/Vomiting Oxycodone/Acetaminophen (Acetaminophen/Oxycodone 325-5 Mg Tab) 1 tab PO Q4H PRN PRN Reason: Pain (severe 7-10) Last Admin: 08/12/20 01:46 Dose: 1 tab Documented by: Oxycodone/Acetaminophen (Acetaminophen/Oxycodone 325-5 Mg Tab) 2 tab PO Q4H PRN PRN Reason: Pain (severe 7-10) Oxytocin (Oxytocin 10 Units/1 Ml Sdv) 10 unit IM ASDIRECTED PRN PRN Reason: Excessive Vaginal Bleeding Phenylephrine HCl (Phenylephrine/Normal Saline 100 Mcg/Ml 10 Ml Syringe) 0.1 mg IVPUSH Q5M PRN PRN Reason: Hypotension Sodium Chloride (Sodium Chloride 0.9% 10 Ml Syringe) 10 ml FLUSH ASDIRECTED PRN PRN Reason: Keep Vein Open Sodium Chloride (Sodium Chloride 0.9% 2.5 Ml Syringe) 2.5 ml FLUSH ASDIRECTED PRN PRN Reason: Keep Vein Open Sodium Chloride (Sodium Chloride 0.9% 10 Ml Sdv) 10 ml IV ASDIRECTED PRN PRN Reason: IV Use Sterile Water (Water For Irrigation,Sterile 1,000 Ml Container) 1,000 ml IRR ASDIRECTED PRN PRN Reason: delivery Discontinued Medications Cefazolin Sodium (Cefazolin 1 Gm Vial) Confirm Administered Dose 2 gm .ROUTE .STK-MED ONE Stop: 08/09/20 20:01 Citric Acid/Sodium Citrate (Citric Acid/Sodium Citrate Solution 30 Ml Cup) 30 ml PO ONETIME ONE Stop: 08/09/20 19:38 Last Admin: 08/10/20 09:13 Dose: Not Given Documented by: Diphenhydramine HCl (Diphenhydramine 50 Mg/Ml Sdv) 12.5 mg IVPUSH Q2H PRN PRN Reason: Itching Fentanyl (Fentanyl 100 Mcg/2 Ml Sdv) Confirm Administered Dose 100 mcg .ROUTE .STK-MED ONE Stop: 08/09/20 19:53 Hydrochlorothiazide (Hydrochlorothiazide 12.5 Mg Cap) 12.5 mg PO ONETIME ONE Stop: 08/10/20 02:07 Last Admin: 08/10/20 02:43 Dose: 12.5 mg Documented by: Cefazolin Sodium/Dextrose 2 gm (/ Premix) 50 mls @ 100 mls/hr IV ONETIME ONE Stop: 08/09/20 20:06 Last Admin: 08/10/20 09:13 Dose: Not Given Documented by: Ketorolac Tromethamine (Ketorolac 30 Mg/Ml Sdv) 30 mg IVPUSH Q6H KEKE Stop: 08/10/20 21:16 Last Admin: 08/10/20 21:17 Dose: 30 mg Documented by: Labetalol HCl (Labetalol 100 Mg Tab) 100 mg PO ONETIME ONE Stop: 08/09/20 14:47 Last Admin: 08/09/20 15:13 Dose: 100 mg Documented by: Labetalol HCl (Labetalol 100 Mg/20 Ml Mdv) 20 mg IVPUSH ONETIME ONE; Protocol Stop: 08/09/20 15:07 Last Admin: 08/09/20 15:35 Dose: 20 mg Documented by: Labetalol HCl (Labetalol 100 Mg/20 Ml Mdv) 40 mg IVPUSH ONETIME ONE; Protocol Stop: 08/09/20 16:23 Last Admin: 08/09/20 16:30 Dose: 40 mg Documented by: Labetalol HCl (Labetalol 100 Mg/20 Ml Mdv) 20 mg IVPUSH ONETIME ONE; Protocol Stop: 08/09/20 18:21 Last Admin: 08/09/20 18:26 Dose: 20 mg Documented by: Labetalol HCl (Labetalol 100 Mg/20 Ml Mdv) 40 mg IVPUSH ONETIME ONE; Protocol Stop: 08/09/20 18:58 Last Admin: 08/09/20 19:07 Dose: 40 mg Documented by: Labetalol HCl (Labetalol 100 Mg/20 Ml Mdv) 20 mg IVPUSH ONETIME ONE; Protocol Stop: 08/09/20 23:45 Last Admin: 08/09/20 23:50 Dose: 20 mg Documented by: Labetalol HCl (Labetalol 100 Mg Tab) 100 mg PO ONETIME ONE Stop: 08/10/20 00:14 Last Admin: 08/10/20 00:29 Dose: 100 mg Documented by: Methylergonovine Maleate (Methylergonovine 0.2 Mg/1 Ml Amp) 0.2 mg IM ASDIRECTED PRN PRN Reason: Post Hemorrhage Misoprostol (Misoprostol 25 Mcg (1/4 Of 100 Mcg) Tab) 25 mcg PO ONETIME ONE Stop: 08/09/20 14:47 Last Admin: 08/09/20 15:13 Dose: 25 mcg Documented by: Misoprostol (Misoprostol 25 Mcg (1/4 Of 100 Mcg) Tab) 25 mcg VAG ONETIME ONE Stop: 08/09/20 15:31 Last Admin: 08/09/20 15:38 Dose: 25 mcg Documented by: Morphine Sulfate (Morphine Pf 10 Mg/10 Ml Sdv) Confirm Administered Dose 10 mg .ROUTE .STK-MED ONE Stop: 08/09/20 19:53 Naloxone HCl (Naloxone 0.4 Mg/Ml Syringe) 0.1 mg IVPUSH ONETIME PRN PRN Reason: Respiratory Depression Stop: 08/10/20 19:57 Naloxone HCl (Naloxone 0.4 Mg/Ml Syringe) 0.1 mg IVPUSH ASDIRECTED PRN PRN Reason: Respiratory Depression Nifedipine (Nifedipine 30 Mg Tab.Er) 90 mg PO ONETIME ONE Stop: 08/10/20 00:15 Last Admin: 08/10/20 09:14 Dose: Not Given Documented by: Nifedipine (Nifedipine 30 Mg Tab.Er) Confirm Administered Dose 90 mg .ROUTE .STK-MED ONE Stop: 08/10/20 00:20 Last Admin: 08/10/20 00:27 Dose: 90 mg Documented by: Octyl Cyanoacrylate (Octyl 2-Cyanoacrylate 1 Tube) Confirm Administered Dose 1 applic .ROUTE .STK-MED ONE Stop: 08/09/20 21:26 Last Admin: 08/10/20 09:14 Dose: Not Given Documented by: Ondansetron HCl (Ondansetron 4 Mg/2 Ml Sdv) 4 mg IVPUSH Q6H PRN PRN Reason: Nausea Oxycodone/Acetaminophen (Acetaminophen/Oxycodone 325-5 Mg Tab) 2 tab PO Q6H PRN PRN Reason: Pain (moderate 4-6) Oxytocin (Oxytocin 10 Units/1 Ml Sdv) Confirm Administered Dose 30 unit .ROUTE .Zipnosis-[place] ONE Stop: 08/09/20 20:07 - Exam General: Reports: Alert, Oriented, Cooperative, No Acute Distress Lungs: Reports: Clear to Auscultation, Normal Respiratory Effort Cardiovascular: Reports: Regular Rate, Regular Rhythm GI/Abdominal Exam: Soft, Non-Tender (Female) Exam: Deferred Rectal (Female) Exam: Deferred Back Exam: Reports: Normal Inspection, Full Range of Motion Extremities: Normal Inspection, Normal Range of Motion, Non-Tender, Normal Capillary Refill Skin: Reports: Warm, Dry, Intact Wound/Incisions: Reports: Healing Well Neurological: Reports: No New Focal Deficit, Normal Speech, Normal Tone, Sensation Intact Psy/Mental Status: Reports: Alert, Normal Affect, Normal Mood
[2020-08-12] MEDS: Docusate Sodium 100 MG Cap PO SCH ×2 (08:37→20:12)
[2020-08-12] MEDS: NIFEdipine 30 MG Tab.ER PO SCH (08:37)
[2020-08-12] MEDS: Labetalol 100 MG Tab PO SCH (08:47)
[2020-08-13 08:52] VITALS: BP 125/83; PULSE 108
[2020-08-13] MEDS: NIFEdipine 30 MG Tab.ER PO SCH (09:11)
[2020-08-13] MEDS: Labetalol 100 MG Tab PO SCH (09:11)
[2020-08-13] MEDS: Docusate Sodium 100 MG Cap PO SCH (09:12)
--- NOTE | 2020-08-13 10:05 | PCM.DCSUM1 ---
Discharge Summary - Hospital Course Free Text/Narrative:: Discharge home. Follow up in the clinic in one week for post-op incision check and BP check. Follow up in the clinic in 6 weeks for routine visit; sooner, if needed. Diagnosis: Stroke: No Modified June[place] Scale: No Symptoms at All Modified [place] Scale Score: 0 - Discharge Data Discharge Date: 08/13/20 Discharge Disposition: Home, Self-Care 01 Condition: Good - Referral to Home Health Primary Care Physician: PCP None - Patient Summary/Data Operative Procedure(s) Performed: Primary C/Section - Patient Instructions Diet: Usual Diet as Tolerated, Regular Diet as Tolerated, Drink 8-10+ Glasses/Day Activity: As Tolerated, No Strenuous Activities, Rest and Relax Today Driving: May Drive Today Showering/Bathing: May Shower Showering/Bathing, Other: May sitz bathe for perineal comfort. Do not submerse incision. Wound/Incision Care: Change Dressing Daily Notify Provider of: Fever, Increased Pain, Swelling and Redness, Drainage, Nausea and/or Vomiting - Discharge Plan *PRESCRIPTION DRUG MONITORING PROGRAM REVIEWED*: No *COPY OF PRESCRIPTION DRUG MONITORING REPORT IN PATIENT MARLENE: No Prescriptions/Med Rec: Docusate Sodium [Colace] 100 mg PO BID #60 cap Ibuprofen [Motrin] 800 mg PO Q8H PRN #90 tablet PRN Reason: mild pain or fever Acetaminophen/oxyCODONE [Percocet 325-5 MG] 1 tab PO Q4H PRN #30 tablet PRN Reason: Pain (Severe 7-10) Home Medications: Home Meds Vit Calc,Iron,Folic [ Vitamins] 1 tab PO DAILY 10/07/17 [History] Aspirin 81 mg PO DAILY 03/23/20 [History] NIFEdipine [Nifedipine ER] 1 tab PO DAILY 04/30/20 [History] Acetaminophen/oxyCODONE [Percocet 325-5 MG] 1 tab PO Q4H PRN #30 tablet 08/11/20 [Rx] Docusate Sodium [Colace] 100 mg PO BID #60 cap 08/11/20 [Rx] Ibuprofen [Motrin] 800 mg PO Q8H PRN #90 tablet 08/11/20 [Rx] Labetalol [Normodyne] 100 mg PO DAILY tablet 08/11/20 [Rx] Patient Handouts: Baby Blues, Hypertension, Care After Delivery Referrals: Leon Red MD [Physician] - 09/22/20 3:00 pm (1 week blood pressure and incision check up on 08/16/2020 at 11:15am. 6 week follow-up appointment on 09/22/2020 at 3:00pm.) - Discharge Summary/Plan Comment DC Time >30 min.: Yes - General Info Date of Service: 08/13/20 Admission Dx/Problem (Free Text: Patient Status Order with Admit Dx/Problem 08/09/20 11:10 Patient Status [ADT] Routine 08/09/20 14:09 Patient Status [ADT] Routine Admission Diagnosis/Problem Admission Diagnosis/Problem Dayana is a 29 yo current PPD2 s/p primary LTCS at 36+4 weeks gestation (NI(LMP) 09/02/2020) following NRFHTs during medical IOL for severe range BPs. O pos, RI, GBS neg. Patient has no complaints or concerns at this time. Patient is breast and bottle feeding well, resting comfortably in bed with at bedside. Patient reports she is eating, voiding, ambulating independently and without difficulty. Patient denies any problems or concerns at this time except mild-moderate intermittent uterine cramping relieved with Tylenol and Ibuprofen. Patient reports small vaginal bleeding with no clots. Patient verbalizes her readiness to be discharged home today. Low transverse incision dressing clean, dry, intact. Functional Status: Reports: Pain Controlled, Tolerating Diet, Ambulating, Urinating - Review of Systems General: Reports: No Symptoms HEENT: Reports: No Symptoms Pulmonary: Reports: No Symptoms Cardiovascular: Reports: No Symptoms Gastrointestinal: Reports: No Symptoms Genitourinary: Reports: No Symptoms Musculoskeletal: Reports: No Symptoms Skin: Reports: No Symptoms Neurological: Reports: No Symptoms Psychiatric: Reports: No Symptoms - Patient Data Vitals - Most Recent: Last Vital Signs Temp 98.5 F 08/13/20 08:00 Pulse 108 H 08/13/20 09:11 Resp 12 08/13/20 08:00 BP 125/83 08/13/20 09:11 Pulse Ox 99 08/13/20 08:00 Weight - Most Recent: 254 lb Med Orders - Current: Current Medications Albuterol (Albuterol 0.083% 2.5 Mg/3 Ml Neb Soln) 2.5 mg NEB ONETIME PRN PRN Reason: Wheezing Bisacodyl (Bisacodyl 10 Mg Supp) 10 mg RECTAL ONETIME PRN PRN Reason: Constipation Butorphanol Tartrate (Butorphanol 1 Mg/Ml Sdv) 1 mg IVPUSH Q1H PRN PRN Reason: Pain (severe 7-10) Carboprost Tromethamine (Carboprost Tromethamine 250 Mcg/1 Ml Amp) 250 mcg IM ASDIRECTED PRN PRN Reason: Post Hemorrhage Diphenhydramine HCl (Diphenhydramine 50 Mg/Ml Sdv) 25 mg IVPUSH Q6H PRN PRN Reason: Itching or Nausea Docusate Sodium (Docusate Sodium 100 Mg Cap) 100 mg PO BID [facility] Last Admin: 08/13/20 09:12 Dose: 100 mg Documented by: Droperidol (Droperidol 5 Mg/2 Ml Sdv) 0.625 mg IVPUSH ONETIME PRN PRN Reason: Nausea/Vomiting Emollient Ointment (Lanolin 100% Cream 7 Gm Tube) 0 gm TOP ASDIRECTED PRN PRN Reason: Sore Nipples Ephedrine Sulfate (Ephedrine 50 Mg/Ml Sdv) 10 mg IVPUSH Q5M PRN PRN Reason: Hypotension Fentanyl (Fentanyl 100 Mcg/2 Ml Sdv) 50 mcg IVPUSH Q1H PRN PRN Reason: Pain (severe 7-10) Fentanyl (Fentanyl 100 Mcg/2 Ml Sdv) 50 mcg IVPUSH Q5M PRN PRN Reason: Pain (mild 1-3) Hydromorphone HCl (Hydromorphone 2 Mg/Ml Syringe) 0.5 mg IVPUSH Q10M PRN PRN Reason: Pain (moderate 4-6) Lactated Ringer's (Ringers, Lactated) 1,000 mls @ 150 mls/hr IV ASDIRECTED [facility] Last Admin: 08/09/20 18:36 Dose: 150 mls/hr Documented by: Oxytocin/Sodium Chloride (Oxytocin 30 Unit/500 Ml-Ns) 30 unit in 500 mls @ 999 mls/hr IV TITRATE [facility] Tranexamic Acid 1,000 mg/ (Sodium Chloride) 110 mls @ 660 mls/hr IV ONETIME PRN PRN Reason: Bleeding Lactated Ringer's (Ringers, Lactated) 1,000 mls @ 500 mls/hr IV BOLUS [facility] Oxytocin/Sodium Chloride (Oxytocin 30 Unit/500 Ml-Ns) 30 unit in 500 mls @ 250 mls/hr IV TITRATE [facility] Lactated Ringer's (Ringers, Lactated) 1,000 mls @ 125 mls/hr IV ASDIRECTED [facility] Tranexamic Acid 1,000 mg/ (Sodium Chloride) 110 mls @ 660 mls/hr IV ONETIME PRN PRN Reason: Bleeding Ibuprofen (Ibuprofen 800 Mg Tab) 800 mg PO Q8H PRN PRN Reason: mild pain or fever Last Admin: 08/12/20 22:07 Dose: 800 mg Documented by: Labetalol HCl (Labetalol 100 Mg/20 Ml Mdv) 40 mg IVPUSH ONETIME PRN; Protocol PRN Reason: Hypertension Labetalol HCl (Labetalol 100 Mg Tab) 100 mg PO DAILY [facility] Last Admin: 08/13/20 09:11 Dose: 100 mg Documented by: Lidocaine HCl (Lidocaine 1% 50 Ml Mdv) 50 ml INJECT ONETIME PRN PRN Reason: Laceration repair Methylergonovine Maleate (Methylergonovine 0.2 Mg/1 Ml Amp) 0.2 mg IM ONETIME PRN PRN Reason: Excessive Vaginal Bleeding Metoclopramide HCl (Metoclopramide 10 Mg/2 Ml Sdv) 10 mg IVPUSH ONETIME PRN PRN Reason: Nausea/Vomiting Misoprostol (Misoprostol 200 Mcg Tab) 200 mcg PO ONETIME PRN PRN Reason: Post Hemorrhage Misoprostol (Misoprostol 200 Mcg Tab) 1,000 mcg RECTAL ONETIME PRN PRN Reason: excessive bleeding Morphine Sulfate (Morphine 2 Mg/Ml Syringe) 2 mg IVPUSH Q10M PRN PRN Reason: Pain (severe 7-10) Nalbuphine HCl (Nalbuphine 10 Mg/1 Ml Vial) 10 mg IVPUSH Q1H PRN PRN Reason: Pain (severe 7-10) Nalbuphine HCl (Nalbuphine 10 Mg/1 Ml Vial) 5 mg IVPUSH ASDIRECTED PRN PRN Reason: Itching Nifedipine (Nifedipine 30 Mg Tab.Er) 90 mg PO DAILY [facility] Last Admin: 08/13/20 09:11 Dose: 90 mg Documented by: Ondansetron HCl (Ondansetron 4 Mg/2 Ml Sdv) 4 mg IVPUSH ONETIME PRN PRN Reason: Nausea/Vomiting Ondansetron HCl (Ondansetron 4 Mg/2 Ml Sdv) 4 mg IVPUSH Q4H PRN PRN Reason: Nausea/Vomiting Oxycodone/Acetaminophen (Acetaminophen/Oxycodone 325-5 Mg Tab) 1 tab PO Q4H PRN PRN Reason: Pain (severe 7-10) Last Admin: 08/12/20 01:46 Dose: 1 tab Documented by: Oxycodone/Acetaminophen (Acetaminophen/Oxycodone 325-5 Mg Tab) 2 tab PO Q4H PRN PRN Reason: Pain (severe 7-10) Last Admin: 08/12/20 13:37 Dose: 1 tab Documented by: Oxytocin (Oxytocin 10 Units/1 Ml Sdv) 10 unit IM ASDIRECTED PRN PRN Reason: Excessive Vaginal Bleeding Phenylephrine HCl (Phenylephrine/Normal Saline 100 Mcg/Ml 10 Ml Syringe) 0.1 mg IVPUSH Q5M PRN PRN Reason: Hypotension Sodium Chloride (Sodium Chloride 0.9% 10 Ml Syringe) 10 ml FLUSH ASDIRECTED PRN PRN Reason: Keep Vein Open Sodium Chloride (Sodium Chloride 0.9% 2.5 Ml Syringe) 2.5 ml FLUSH ASDIRECTED PRN PRN Reason: Keep Vein Open Sodium Chloride (Sodium Chloride 0.9% 10 Ml Sdv) 10 ml IV ASDIRECTED PRN PRN Reason: IV Use Sterile Water (Water For Irrigation,Sterile 1,000 Ml Container) 1,000 ml IRR ASDIRECTED PRN PRN Reason: delivery Discontinued Medications Cefazolin Sodium (Cefazolin 1 Gm Vial) Confirm Administered Dose 2 gm .ROUTE .STK-MED ONE Stop: 08/09/20 20:01 Citric Acid/Sodium Citrate (Citric Acid/Sodium Citrate Solution 30 Ml Cup) 30 ml PO ONETIME ONE Stop: 08/09/20 19:38 Last Admin: 08/10/20 09:13 Dose: Not Given Documented by: Diphenhydramine HCl (Diphenhydramine 50 Mg/Ml Sdv) 12.5 mg IVPUSH Q2H PRN PRN Reason: Itching Fentanyl (Fentanyl 100 Mcg/2 Ml Sdv) Confirm Administered Dose 100 mcg .ROUTE .STK-MED ONE Stop: 08/09/20 19:53 Hydrochlorothiazide (Hydrochlorothiazide 12.5 Mg Cap) 12.5 mg PO ONETIME ONE Stop: 08/10/20 02:07 Last Admin: 08/10/20 02:43 Dose: 12.5 mg Documented by: Cefazolin Sodium/Dextrose 2 gm (/ Premix) 50 mls @ 100 mls/hr IV ONETIME ONE Stop: 08/09/20 20:06 Last Admin: 08/10/20 09:13 Dose: Not Given Documented by: Ketorolac Tromethamine (Ketorolac 30 Mg/Ml Sdv) 30 mg IVPUSH Q6H KEKE Stop: 08/10/20 21:16 Last Admin: 08/10/20 21:17 Dose: 30 mg Documented by: Labetalol HCl (Labetalol 100 Mg Tab) 100 mg PO ONETIME ONE Stop: 08/09/20 14:47 Last Admin: 08/09/20 15:13 Dose: 100 mg Documented by: Labetalol HCl (Labetalol 100 Mg/20 Ml Mdv) 20 mg IVPUSH ONETIME ONE; Protocol Stop: 08/09/20 15:07 Last Admin: 08/09/20 15:35 Dose: 20 mg Documented by: Labetalol HCl (Labetalol 100 Mg/20 Ml Mdv) 40 mg IVPUSH ONETIME ONE; Protocol Stop: 08/09/20 16:23 Last Admin: 08/09/20 16:30 Dose: 40 mg Documented by: Labetalol HCl (Labetalol 100 Mg/20 Ml Mdv) 20 mg IVPUSH ONETIME ONE; Protocol Stop: 08/09/20 18:21 Last Admin: 08/09/20 18:26 Dose: 20 mg Documented by: Labetalol HCl (Labetalol 100 Mg/20 Ml Mdv) 40 mg IVPUSH ONETIME ONE; Protocol Stop: 08/09/20 18:58 Last Admin: 08/09/20 19:07 Dose: 40 mg Documented by: Labetalol HCl (Labetalol 100 Mg/20 Ml Mdv) 20 mg IVPUSH ONETIME ONE; Protocol Stop: 08/09/20 23:45 Last Admin: 08/09/20 23:50 Dose: 20 mg Documented by: Labetalol HCl (Labetalol 100 Mg Tab) 100 mg PO ONETIME ONE Stop: 08/10/20 00:14 Last Admin: 08/10/20 00:29 Dose: 100 mg Documented by: Methylergonovine Maleate (Methylergonovine 0.2 Mg/1 Ml Amp) 0.2 mg IM ASDIRE CTED PRN PRN Reason: Post Hemorrhage Misoprostol (Misoprostol 25 Mcg (1/4 Of 100 Mcg) Tab) 25 mcg PO ONETIME ONE Stop: 08/09/20 14:47 Last Admin: 08/09/20 15:13 Dose: 25 mcg Documented by: Misoprostol (Misoprostol 25 Mcg (1/4 Of 100 Mcg) Tab) 25 mcg VAG ONETIME ONE Stop: 08/09/20 15:31 Last Admin: 08/09/20 15:38 Dose: 25 mcg Documented by: Morphine Sulfate (Morphine Pf 10 Mg/10 Ml Sdv) Confirm Administered Dose 10 mg .ROUTE .STK-MED ONE Stop: 08/09/20 19:53 Naloxone HCl (Naloxone 0.4 Mg/Ml Syringe) 0.1 mg IVPUSH ONETIME PRN PRN Reason: Respiratory Depression Stop: 08/10/20 19:57 Naloxone HCl (Naloxone 0.4 Mg/Ml Syringe) 0.1 mg IVPUSH ASDIRECTED PRN PRN Reason: Respiratory Depression Nifedipine (Nifedipine 30 Mg Tab.Er) 90 mg PO ONETIME ONE Stop: 08/10/20 00:15 Last Admin: 08/10/20 09:14 Dose: Not Given Documented by: Nifedipine (Nifedipine 30 Mg Tab.Er) Confirm Administered Dose 90 mg .ROUTE .STK-MED ONE Stop: 08/10/20 00:20 Last Admin: 08/10/20 00:27 Dose: 90 mg Documented by: Octyl Cyanoacrylate (Octyl 2-Cyanoacrylate 1 Tube) Confirm Administered Dose 1 applic .ROUTE .STK-MED ONE Stop: 08/09/20 21:26 Last Admin: 08/10/20 09:14 Dose: Not Given Documented by: Ondansetron HCl (Ondansetron 4 Mg/2 Ml Sdv) 4 mg IVPUSH Q6H PRN PRN Reason: Nausea Oxycodone/Acetaminophen (Acetaminophen/Oxycodone 325-5 Mg Tab) 2 tab PO Q6H PRN PRN Reason: Pain (moderate 4-6) Oxytocin (Oxytocin 10 Units/1 Ml Sdv) Confirm Administered Dose 30 unit .ROUTE .[employer] ONE Stop: 08/09/20 20:07 - Exam General: Reports: Alert, Oriented, Cooperative, No Acute Distress Lungs: Reports: Normal Respiratory Effort Cardiovascular: Reports: Regular Rate, Regular Rhythm GI/Abdominal Exam: Soft, Non-Tender (Female) Exam: Deferred Rectal (Female) Exam: Deferred Back Exam: Reports: Normal Inspection, Full Range of Motion Extremities: Normal Inspection, Normal Range of Motion, Non-Tender, Normal Capillary Refill Skin: Reports: Warm, Dry, Intact Wound/Incisions: Reports: Healing Well Neurological: Reports: No New Focal Deficit, Normal Speech, Normal Tone, Strength Equal Bilateral, Sensation Intact Psy/Mental Status: Reports: Alert, Normal Affect, Normal Mood
[2020-08-13] MEDS: Acetaminophen/oxyCODONE 325-5 MG Tab PO PRN (12:10)
[2020-08-13] MEDS: Ibuprofen 800 MG Tab PO PRN (12:10)
== END 2020-08-13 13:26 | disposition home or self-care (01) | DRG 540 ==
LOC: MW.OBCHECK 11:23 → MW.OB 14:09 → OBSVTOIN 19:00 → MW.OB 19:00
PROVIDERS: ADMIT Obstetrics & Gynecology; ATTEND Obstetrics & Gynecology
PROC: 10D00Z1 Extraction of Products of Conception, Low, Open Approach (ICD-10-PCS; principal; 2020-08-09)
PROC: 10907ZC Drainage of Amniotic Fluid, Therapeutic from Products of Conception, Via Natural or Artificial Opening (ICD-10-PCS; 2020-08-09)
PROC: 3E0P7VZ Introduction of Hormone into Female Reproductive, Via Natural or Artificial Opening (ICD-10-PCS; 2020-08-09)
PROC: 3E033VJ Introduction of Other Hormone into Peripheral Vein, Percutaneous Approach (ICD-10-PCS; 2020-08-09)
DX: O10.02 Pre-existing essential hypertension complicating childbirth (principal); Z3A.36 36 weeks gestation of pregnancy; Z37.0 Single live birth; O99.214 Obesity complicating childbirth; E66.9 Obesity, unspecified; O13.4 Gestational [pregnancy-induced] hypertension without significant proteinuria, complicating childbirth; Z20.822 Contact with and (suspected) exposure to COVID-19
CPT/HCPCS: 36415; 59025; 76815; 76815-26; 80053; 82570; 84156; 84550; 85027; 86592; 86850; 86900; 86901; A9270-GY; J0690; J1885; J2270; J2590; J3010; J3490; J7120; U0002

== ENCOUNTER 2020-09-09 17:51 | Emergency (ER) | payer BC ==
--- NOTE | 2020-09-09 18:31 | EDM.PDOC ---
<Mauricio Dent - Last Filed: 09/09/20 18:38> ED HPI GENERAL MEDICAL PROBLEM - General Chief Complaint: Chest Pain Stated Complaint: ULTRASOUND Time Seen by Provider: 09/09/20 18:07 - History of Present Illness INITIAL COMMENTS - FREE TEXT/NARRATIVE: Patient is a 29-year-old female presents today for chest pain. Patient recently had a baby on August and since August 25 she has had substernal chest pain is made worse with moving her upper extremities. She also reported some shortness of breath. She saw PMD and I did a D-dimer that was elevated to 0.75. Patient has no leg swelling recent travels. No cough fever chills. Patient gave at 36 weeks due to elevated blood pressure and her blood pressures when a 180/110 - Related Data Allergies Allergy/AdvReac Type Severity Reaction Status Date / Time No Known Allergies Allergy Verified 09/09/20 18:10 Home Meds: Home Meds Vit Calc,Iron,Folic [ Vitamins] 1 tab PO DAILY 10/07/17 [History] NIFEdipine [Nifedipine ER] 1 tab PO DAILY 04/30/20 [History] Ibuprofen [Motrin] 800 mg PO Q8H PRN #90 tablet 08/11/20 [Rx] Labetalol [Normodyne] 100 mg PO DAILY tablet 08/11/20 [Rx] Hydrochlorothiazide/Lisinopril [Lisinopril-HCTZ 10-12.5 MG] 1 tab PO DAILY #10 tab 09/09/20 [Rx] Past Medical History - Past Health History Medical/Surgical History: Denies Medical/Surgical History HEENT History: Reports: None Cardiovascular History: Reports: Hypertension Respiratory History: Reports: None Gastrointestinal History: Reports: None Genitourinary History: Reports: None PRODUCTION TESTER History: Reports: Other PRODUCTION TESTER History: 08/2020 Musculoskeletal History: Reports: None Neurological History: Reports: None Psychiatric History: Reports: None Endocrine/Metabolic History: Reports: Diabetes, Gestational, Obesity/BMI 30+ Insulin Pump Model and Pantomimist: None Hematologic History: Reports: None Immunologic History: Reports: None Oncologic (Cancer) History: Reports: None Dermatologic History: Reports: None - Infectious Disease History Infectious Disease History: Reports: None Other Infectious Disease History: HSV-1. HSV-2 - Past Surgical History Head Surgeries/Procedures: Reports: None HEENT Surgical History: Reports: None Cardiovascular Surgical History: Reports: None Female Surgical History: Reports: None Musculoskeletal Surgical History: Reports: None Dermatological Surgical History: Reports: None Social & Family History - Family History Family Medical History: No Pertinent Family History HEENT: Reports: None Cardiac: Reports: None Respiratory: Reports: None GI: Reports: None : Reports: None OBGYN: Reports: Musculoskeletal: Reports: None Psychiatric: Reports: None Oncologic: Reports: None - Tobacco Use Tobacco Use Status *Q: Never Tobacco User - Caffeine Use Caffeine Use: Reports: None Caffeine Use Comment: Pt drowsy, falling asleep during admission assessment - Recreational Drug Use Recreational Drug Use: No ED ROS GENERAL - Review of Systems Review Of Systems: See Below Constitutional: Reports: No Symptoms HEENT: Reports: No Symptoms Respiratory: Reports: No Symptoms Cardiovascular: Reports: Chest Pain Endocrine: Reports: No Symptoms GI/Abdominal: Reports: No Symptoms : Reports: No Symptoms Musculoskeletal: Reports: No Symptoms Skin: Reports: No Symptoms Neurological: Reports: No Symptoms Psychiatric: Reports: No Symptoms Hematologic/Lymphatic: Reports: No Symptoms Immunologic: Reports: No Symptoms ED EXAM, GENERAL - Physical Exam Exam: See Below Exam Limited By: No Limitations General Appearance: Alert, WD/WN, No Apparent Distress Eye Exam: Bilateral Eye: EOMI, PERRL Respiratory/Chest: No Respiratory Distress, Lungs Clear, Normal Breath Sounds Cardiovascular: Normal Peripheral Pulses, Regular Rate, Rhythm GI/Abdominal: Normal Bowel Sounds, Soft, Non-Tender Extremities: Normal Inspection, Normal Range of Motion, No Pedal Edema Neurological: Alert, Oriented, CN II-XII Intact, Normal Cognition #1 Interpretation EKG Date: 09/09/20 Time: 18:35 Rhythm: NSR Rate (Beats/Min): 69 ST-T: Normal Departure - Departure Disposition: Home, Self-Care 01 Clinical Impression: Atypical chest pain Hypertension Qualifiers: Hypertension type: unspecified Qualified Code(s): I10 - Essential (primary) hypertension Prescriptions: Hydrochlorothiazide/Lisinopril [Lisinopril-HCTZ 10-12.5 MG] 1 tab PO DAILY #10 tab Instructions: Nonspecific Chest Pain, Adult, [id number], Hypertension, Adult, [id number], Managing Your Hypertension Referrals: Reena Kinney MD [Primary Care Provider] - 2 Days Forms: ED Department Discharge Additional Instructions: The need for follow-up, as well as the timing and circumstances, are variable depending upon the specifics of your emergency department visit. If you don't have a primary care physician on staff, we will provide you with a referral. We always advise you to contact your personal physician following an emergency department visit to inform them of the circumstance of the visit and for follow-up with them and/or the need for any referrals to a consulting specialist. The emergency department will also refer you to a specialist when appropriate. This referral assures that you have the opportunity for follow-up care with a specialist. All of these measure are taken in an effort to provide you with optimal care, which includes your follow-up. Under all circumstances we always encourage you to contact your private physician who remains a resource for coordinating your care. When calling for follow-up care, please make the office aware that this follow-up is from your recent emergency room visit. If for any reason you are refused follow-up, please contact the [facility] Emergency Department at and asked to speak to the emergency department charge nurse. If you do not have a primary care doctor, please follow up with the clinics below within 3-5 days. [facility] - Primary Care [address] [place] [address] [id number] [address] [address] Sepsis Event Note (ED) - Evaluation Sepsis Screening Result: No Definite Risk - Assessment/Plan Plan: Patient is a 29-year-old female presenting for chest pain reason gave last month. Patient was work-up as outpatient found to have elevated D-dimer and sent to to rule out PE. Patient also has elevated blood pressure. Rule out HELLP syndrome. Labs CT PE and reassess. <Bautista Kiran - Last Filed: 09/09/20 22:12> Course - Vital Signs Last Recorded V/S: Last Vital Signs Temp 97.1 F 07/10/21 18:12 Pulse 70 09/09/20 21:25 Resp 18 09/09/20 20:28 BP 180/105 H 09/09/20 21:25 Pulse Ox 100 09/09/20 21:25 - Orders/Labs/Meds Orders: Active Orders 24 hr Category Date Time Status EKG 12 Lead [EKG Documentation Completion] [RC] STAT Care 09/09/20 18:31 Active Labs: Laboratory Tests 09/09/20 09/09/20 09/09/20 Range/Units 18:07 18:25 18:25 WBC 5.36 (4.0-11.0) K/uL RBC 4.88 (4.30-5.90) M/uL Hgb 11.3 L (12.0-16.0) g/dL Hct 36.3 (36.0-46.0) % MCV 74.4 L (80.0-98.0) fL MCH 23.2 L (27.0-32.0) pg MCHC 31.1 (31.0-37.0) g/dL RDW Std Deviation 41.6 (28.0-62.0) fl RDW Coeff of Patience 15 (11.0-15.0) % Plt Count 248 (150-400) K/uL MPV 10.50 (7.40-12.00) fL Neut % (Auto) 34.4 L (48.0-80.0) % Lymph % (Auto) 53.4 H (16.0-40.0) % [place] % (Auto) 8.4 (0.0-15.0) % Eos % (Auto) 3.4 (0.0-7.0) % Baso % (Auto) 0.4 (0.0-1.5) % Neut # (Auto) 1.9 (1.4-5.7) K/uL Lymph # (Auto) 2.9 H (0.6-2.4) K/uL [place] # (Auto) 0.5 (0.0-0.8) K/uL Eos # (Auto) 0.2 (0.0-0.7) K/uL Baso # (Auto) 0.0 (0.0-0.1) K/uL Nucleated RBC % 0.0 /100WBC Nucleated RBCs # 0 K/uL INR 1.10 APTT 24.9 (18.6-31.3) SEC Sodium (136-145) mmol/L Potassium (3.5-5.1) mmol/L Chloride (98-107) mmol/L Carbon Dioxide (21.0-32.0) mmol/L BUN (7.0-18.0) mg/dL Creatinine (0.6-1.0) mg/dL Est Cr Clr Drug Dosing mL/min Estimated GFR (MDRD) ml/min Glucose (74-106) mg/dL Calcium (8.5-10.1) mg/dL Phosphorus (2.6-4.7) mg/dL Magnesium (1.8-2.4) mg/dL Total Bilirubin (0.2-1.0) mg/dL AST (15-37) IU/L ALT (14-63) IU/L Alkaline Phosphatase (46-116) U/L Creatine Kinase (26-308) U/L Troponin I (0.000-0.056) ng/mL Total Protein (6.4-8.2) g/dL Albumin (3.4-5.0) g/dL Globulin (2.6-4.0) g/dL Albumin/Globulin Ratio (0.9-1.6) HCG, Qual (NEG) Urine Color YELLOW Urine Appearance CLEAR Urine pH 6.0 (5.0-8.0) Ur Specific [place] <= 1.005 (1.001-1.035) Urine Protein NEGATIVE (NEGATIVE) mg/dL Urine Glucose (UA) NEGATIVE (NEGATIVE) mg/dL Urine Ketones NEGATIVE (NEGATIVE) mg/dL Urine Occult Blood NEGATIVE (NEGATIVE) Urine Nitrite NEGATIVE (NEGATIVE) Urine Bilirubin NEGATIVE (NEGATIVE) Urine Urobilinogen 0.2 (<2.0) EU/dL Ur Leukocyte Esterase NEGATIVE (NEGATIVE) Urine RBC 0-1 (0-2/HPF) Urine WBC 0-1 (0-5/HPF) Ur Epithelial Cells RARE (NONE-FEW) Urine Bacteria RARE (NEGATIVE) 09/09/20 09/09/20 09/09/20 Range/Units 18:25 18:25 18:25 WBC (4.0-11.0) K/uL RBC (4.30-5.90) M/uL Hgb (12.0-16.0) g/dL Hct (36.0-46.0) % MCV (80.0-98.0) fL MCH (27.0-32.0) pg MCHC (31.0-37.0) g/dL RDW Std Deviation (28.0-62.0) fl RDW Coeff of Patience (11.0-15.0) % Plt Count (150-400) K/uL MPV (7.40-12.00) fL Neut % (Auto) (48.0-80.0) % Lymph % (Auto) (16.0-40.0) % [place] % (Auto) (0.0-15.0) % Eos % (Auto) (0.0-7.0) % Baso % (Auto) (0.0-1.5) % Neut # (Auto) (1.4-5.7) K/uL Lymph # (Auto) (0.6-2.4) K/uL [place] # (Auto) (0.0-0.8) K/uL Eos # (Auto) (0.0-0.7) K/uL Baso # (Auto) (0.0-0.1) K/uL Nucleated RBC % /100WBC Nucleated RBCs # K/uL INR APTT (18.6-31.3) SEC Sodium 142 (136-145) mmol/L Potassium 3.9 (3.5-5.1) mmol/L Chloride 105 (98-107) mmol/L Carbon Dioxide 27.6 (21.0-32.0) mmol/L BUN 8 (7.0-18.0) mg/dL Creatinine 0.8 (0.6-1.0) mg/dL Est Cr Clr Drug Dosing 91.68 mL/min Estimated GFR (MDRD) > 60.0 ml/min Glucose 81 (74-106) mg/dL Calcium 8.9 (8.5-10.1) mg/dL Phosphorus 4.0 (2.6-4.7) mg/dL Magnesium 2.1 (1.8-2.4) mg/dL Total Bilirubin 0.4 (0.2-1.0) mg/dL AST 15 (15-37) IU/L ALT 21 (14-63) IU/L Alkaline Phosphatase 79 (46-116) U/L Creatine Kinase 76 (26-308) U/L Troponin I < 0.050 (0.000-0.056) ng/mL Total Protein 7.6 (6.4-8.2) g/dL Albumin 3.7 (3.4-5.0) g/dL Globulin 3.9 (2.6-4.0) g/dL Albumin/Globulin Ratio 0.9 (0.9-1.6) HCG, Qual NEGATIVE (NEG) Urine Color Urine Appearance Urine pH (5.0-8.0) Ur Specific [place] (1.001-1.035) Urine Protein (NEGATIVE) mg/dL Urine Glucose (UA) (NEGATIVE) mg/dL Urine Ketones (NEGATIVE) mg/dL Urine Occult Blood (NEGATIVE) Urine Nitrite (NEGATIVE) Urine Bilirubin (NEGATIVE) Urine Urobilinogen (<2.0) EU/dL Ur Leukocyte Esterase (NEGATIVE) Urine RBC (0-2/HPF) Urine WBC (0-5/HPF) Ur Epithelial Cells (NONE-FEW) Urine Bacteria (NEGATIVE) 09/09/20 Range/Units 20:33 WBC (4.0-11.0) K/uL RBC (4.30-5.90) M/uL Hgb (12.0-16.0) g/dL Hct (36.0-46.0) % MCV (80.0-98.0) fL MCH (27.0-32.0) pg MCHC (31.0-37.0) g/dL RDW Std Deviation (28.0-62.0) fl RDW Coeff of Patience (11.0-15.0) % Plt Count (150-400) K/uL MPV (7.40-12.00) fL Neut % (Auto) (48.0-80.0) % Lymph % (Auto) (16.0-40.0) % [place] % (Auto) (0.0-15.0) % Eos % (Auto) (0.0-7.0) % Baso % (Auto) (0.0-1.5) % Neut # (Auto) (1.4-5.7) K/uL Lymph # (Auto) (0.6-2.4) K/uL [place] # (Auto) (0.0-0.8) K/uL Eos # (Auto) (0.0-0.7) K/uL Baso # (Auto) (0.0-0.1) K/uL Nucleated RBC % /100WBC Nucleated RBCs # K/uL INR APTT (18.6-31.3) SEC Sodium (136-145) mmol/L Potassium (3.5-5.1) mmol/L Chloride (98-107) mmol/L Carbon Dioxide (21.0-32.0) mmol/L BUN (7.0-18.0) mg/dL Creatinine (0.6-1.0) mg/dL Est Cr Clr Drug Dosing mL/min Estimated GFR (MDRD) ml/min Glucose (74-106) mg/dL Calcium (8.5-10.1) mg/dL Phosphorus (2.6-4.7) mg/dL Magnesium (1.8-2.4) mg/dL Total Bilirubin (0.2-1.0) mg/dL AST (15-37) IU/L ALT (14-63) IU/L Alkaline Phosphatase (46-116) U/L Creatine Kinase (26-308) U/L Troponin I < 0.050 (0.000-0.056) ng/mL Total Protein (6.4-8.2) g/dL Albumin (3.4-5.0) g/dL Globulin (2.6-4.0) g/dL Albumin/Globulin Ratio (0.9-1.6) HCG, Qual (NEG) Urine Color Urine Appearance Urine pH (5.0-8.0) Ur Specific [place] (1.001-1.035) Urine Protein (NEGATIVE) mg/dL Urine Glucose (UA) (NEGATIVE) mg/dL Urine Ketones (NEGATIVE) mg/dL Urine Occult Blood (NEGATIVE) Urine Nitrite (NEGATIVE) Urine Bilirubin (NEGATIVE) Urine Urobilinogen (<2.0) EU/dL Ur Leukocyte Esterase (NEGATIVE) Urine RBC (0-2/HPF) Urine WBC (0-5/HPF) Ur Epithelial Cells (NONE-FEW) Urine Bacteria (NEGATIVE) Meds: Medications Discontinued Medications Generic Name Dose Route Start Last Admin Trade Name Freq PRN Reason Stop Dose Admin Lactated Ringer's 1,000 mls @ 999 mls/hr 09/09/20 19:51 09/09/20 20:07 Ringers, Lactated IV 09/09/20 20:51 999 mls/hr .BOLUS ONE Administration Iopamidol 82 ml 09/09/20 19:19 09/09/20 19:20 Iopamidol 755 Mg/Ml 100 Ml Bottle IVPUSH 09/09/20 19:20 82 ml ONETIME ONE Administration Labetalol HCl 20 mg 09/09/20 19:51 09/09/20 20:06 Labetalol 100 Mg/20 Ml Mdv IVPUSH 09/09/20 19:52 20 mg ONETIME ONE Administration Protocol Labetalol HCl 20 mg 09/09/20 20:45 09/09/20 20:52 Labetalol 100 Mg/20 Ml Mdv IVPUSH 09/09/20 20:46 20 mg ONETIME ONE Administration Protocol - Re-Assessments/Exams Free Text/Narrative Re-Assessment/Exam: 09/09/20 19:00 This patient was signed out to me from Dr. Mauricio Dent at this time. I promptly performed a detailed physical examination, my examination was performed after ED treatments were initiated by the signout provider. Patient has been under the care of the previous provider up until this point. Patient is a well-appearing 29-year-old female with history of -induced hypertension, hypertensive emergency who presents today with chest pain. Her chest pain is intermittent, localized to the right chest and radiates to the left chest, described as sharp, intermittent, nonpleuritic, nonexertional pain that lasts for about a minute every day. She has had this chest pain since August 25. Currently rating 0/10 but rates 7/10 at its worst. She is status post C- section on 08/[address] Red at 36 weeks GA. She denies nausea, vomiting, shortness of breath, sweats. She admits to right-sided frontal dull aching headache rating 3/10. She takes labetalol and nifedipine in the morning for her hypertension. She denies leg swelling or history of PE or DVT. She was sent here from Dr. Kearns for elevated D-dimer to rule out PE. Her blood pressure at 7:43 PM = 200/132, ordered 1 L IV fluids with 20 mg IV labetalol. 09/09/20 22:08 After IV fluids and blood pressure medication in the ER, BP is now 181/95, she feels asymptomatic and stable for discharge. I performed a repeat exam and did not appreciate new abnormal findings. Patient exhibits normal vital signs and has a normal gait on road test. I advised the patient to return to the ER for reevaluation if symptoms worsened, including fever, worsening pain, or any other worrisome symptoms. I instructed the patient to follow up with their PCP within 2-3 days. MEDICAL DECISION MAKING: I reviewed the patients past medical records, lab and radiographic findings. I discussed the case with the patient. My differential diagnosis included: -induced hypertension, preeclampsia, hypertensive emergency. CT head was unremarkable for her complaint of mild headache. CT angio was performed and did not demonstrate pulmonary embolism despite being sent here for elevated D-dimer. Her EKG and troponin x2 were unremarkable, I do not suspect atypical chest pain for her complaint of chest pain. Her heart score is less than 3, she is stable for outpatient follow-up for further assessment. I instructed her to do frequent blood pressure checks and report her blood pressure to her PCP for medication adjustment. Departure - Departure Time of Disposition: 22:10 Condition: Good Sepsis Event Note (ED) - Focused Exam Vital Signs: Vital Signs Temp Pulse Resp BP Pulse Ox 09/09/20 21:25 70 180/105 H 100 09/09/20 21:15 193/117 H 09/09/20 20:50 64 195/105 H 09/09/20 20:28 77 18 205/129 H 98 09/09/20 20:05 76 20 199/115 H 99 09/09/20 18:51 69 20 185/101 H 99 09/09/20 18:12 97.1 F 71 18 192/130 H 98
[2020-09-09 18:54] LABS: BLOOD UREA NITROGEN,BUN 8 mg/dL (7.0-18.0); CARBON DIOXIDE,CO2 27.6 mmol/L (21.0-32.0); CHLORIDE,CL 105 mmol/L (98-107); GLUCOSE RANDOM 81 mg/dL (74-106); POTASSIUM,K 3.9 mmol/L (3.5-5.1); SODIUM,NA 142 mmol/L (136-145)
[2020-09-09] MEDS ORDERED: Iopamidol 755 Mg/ML 100 ML Bottle IVPUSH ONE (19:19)
--- NOTE | 2020-09-09 19:50 | CT ---
For Patients: As a result of the Century Cures Act, medical imaging exams and procedure reports are released immediately into your electronic medical record. You may view this report before your referring provider. If you have questions, please contact your health care provider. INDICATION: Chest pain. TECHNIQUE: Axial images. Sagittal and coronal reconstructions. 82 mL [id number] pulmonary angiogram protocol. COMPARISON: None. FINDINGS: Pulmonary arteries: There is good contrast opacification. No filling defects to suggest an acute pulmonary embolus. Remainder of the chest: Heart size is upper limits of normal to mildly enlarged. No pericardial effusion. Normal caliber thoracic aorta. No lymphadenopathy. Lungs are clear. No pleural fluid or pneumothorax. Upper abdomen: No acute abnormality. Bones: No acute abnormality. IMPRESSION: 1. No CT evidence of an acute pulmonary embolus. 2. Upper limits of normal to mildly enlarged heart. Dictated by Carlos Stauffer MD @ 09/09/2020 7:47:55 PM Please note that all CT scans at this facility use dose modulation, iterative reconstruction, and/or weight-based dosing when appropriate to reduce radiation dose to as low as reasonably achievable. Dictated by: Carlos Stauffer MD @ 09/09/2020 19:48:14 (Electronically Signed)
[2020-09-09] MEDS ORDERED: Labetalol 100 MG/20 ML MDV IVPUSH ONE ×2 (19:51→20:45)
[2020-09-09] MEDS ORDERED: Lactated Ringers 1,000 ML IV ONE (19:51)
--- NOTE | 2020-09-09 21:03 | CT ---
INDICATION: Headache COMPARISON: none TECHNIQUE: A CT volumetric acquisition was performed of the brain without IV contrast. Please note that all CT scans at this facility use dose modulation, iterative reconstruction, and/or weight-based dosing when appropriate to reduce radiation dose to as low as reasonably achievable. FINDINGS: The CT images reveal a normal appearance of the cerebral ventricles and basal cisterns. There is no evidence of intracranial hemorrhage, tissue infarction or mass effect. The mastoid air cells and middle ear cavities are clear. The calvarium appears intact. There is normal aeration of the visualized paranasal sinuses. Incidental dense ossification of the interhemispheric falx anteriorly. IMPRESSION: Negative head CT. Please note that all CT scans at this facility use dose modulation, iterative reconstruction, and/or weight-based dosing when appropriate to reduce radiation dose to as low as reasonably achievable. Dictated by Navjot Hudson MD @ 09/09/2020 9:02:[address] Navjot Hudson @ Sep 09 2020 9:02PM
[2020-09-09 22:30] VITALS: BP 167/90; PULSE 18
== END 2020-09-09 22:32 | disposition home or self-care (01) ==
LOC: MW.ED 17:51
DX: R07.2 Precordial pain (principal); R07.89 Other chest pain; I10 Essential (primary) hypertension; E66.9 Obesity, unspecified; Z68.38 Body mass index [BMI] 38.0-38.9, adult; Z79.899 Other long term (current) drug therapy
CPT/HCPCS: 36415; 70450; 71275; 80053; 81001; 82550; 83735; 84100; 84484; 84703; 85025; 85610; 85730; 93005; 96374; 96376; 99285; J3490; J7120; Q9967

== ENCOUNTER 2020-09-11 20:25 | Emergency (ER) | payer BC ==
--- NOTE | 2020-09-11 21:03 | EDM.PDOC ---
ED HPI GENERAL MEDICAL PROBLEM - General Chief Complaint: General Stated Complaint: HIGH BP Time Seen by Provider: 09/11/20 20:39 Source of Information: Reports: Patient History Limitations: Reports: No Limitations - History of Present Illness INITIAL COMMENTS - FREE TEXT/NARRATIVE: 29-year-old female with history of migraine headache, -induced hypertension, hypertensive emergency returns for headache. Headache started at 6 PM this evening, described as throbbing sensation rated 10/10, nonradiating, localized to the frontal scalp. Associated with 3 episodes of vomiting and photophobia. She denies fever, chills, chest pain, shortness of breath, abdominal pain. She took ibuprofen with no relief. She was seen here on 09/09/20 for chest pain, she underwent a CT angio for elevated D-dimer which did not demonstrate pulmonary embolism. She had 2 sets of troponins and EKG which were unremarkable. Her heart score was less than 3, she was discharged for outpatient cardiology follow-up with a prescription for HCTZ/lisinopril, which she had failed to fill. She normally takes nifedipine ER daily and labetalol 100 mg daily. She was given IV fluids and 20 mg IV labetalol with improvement in her blood pressure. ROS: A 10-point review of systems, other than pertinent positives and negatives as stated per HPI, is otherwise negative Past medical history: No additional pertinent history Past Surgical history: No additional pertinent history Social history: No additional pertinent history Family history: No additional pertinent history PHYSICAL EXAM General: AOx4, GCS = 15, mild distress HEENT: dry mucous membrane Neck: supple, no meningismus, no Kernig or Brudzinski Cardiac: S1S2 RRR Respiratory: CTAB, no crackles or rales, no wheezing Abdomen: Soft, nontender, no rebound or guarding, nondistended, no pulsatile mass. Back: nontender Musculoskeletal: NVI distally, no deformity Neuro: No focal deficits, headache Pain Score (Numeric/FACES): 10 - Related Data Allergies Allergy/AdvReac Type Severity Reaction Status Date / Time No Known Allergies Allergy Verified 09/11/20 20:40 Home Meds: Home Meds Vit Calc,Iron,Folic [ Vitamins] 1 tab PO DAILY 10/07/17 [History] NIFEdipine [Nifedipine ER] 90 mg PO DAILY 04/30/20 [History] Ibuprofen [Motrin] 800 mg PO Q8H PRN #90 tablet 08/11/20 [Rx] Labetalol [Normodyne] 100 mg PO DAILY tablet 08/11/20 [Rx] Hydrochlorothiazide/Lisinopril [Lisinopril-HCTZ 10-12.5 MG] 1 tab PO DAILY #10 tab 09/09/20 [Rx] Past Medical History - Past Health History Medical/Surgical History: Denies Medical/Surgical History HEENT History: Reports: None Cardiovascular History: Reports: Hypertension Respiratory History: Reports: None Gastrointestinal History: Reports: None Genitourinary History: Reports: None [employer]LL[employer]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 HSV-2 - Past Surgical History Head Surgeries/Procedures: Reports: None HEENT Surgical History: Reports: None Cardiovascular Surgical History: Reports: None Female Surgical History: Reports: None Musculoskeletal Surgical History: Reports: None Dermatological Surgical History: Reports: None Social & Family History - Family History Family Medical History: No Pertinent Family History HEENT: Reports: None Cardiac: Reports: None Respiratory: Reports: None GI: Reports: None : Reports: None OBGYN: Reports: Musculoskeletal: Reports: None Psychiatric: Reports: None Oncologic: Reports: None - Tobacco Use Tobacco Use Status *Q: Never Tobacco User - Caffeine Use Caffeine Use: Reports: None Caffeine Use Comment: Pt drowsy, falling asleep during admission assessment - Recreational Drug Use Recreational Drug Use: No ED ROS GENERAL - Review of Systems Review Of Systems: See Below (see dictation) ED EXAM, GENERAL - Physical Exam Exam: See Below (see dictation) #1 Interpretation EKG Interpretation Comments: Heart rate = 76 bpm, normal sinus rhythm, normal QRS interval, no STEMI. EKG and rhythm strip interpreted by me at 2042 Course - Vital Signs Last Recorded V/S: Last Vital Signs Temp Pulse 84 09/11/20 22:19 Resp 19 09/11/20 22:19 BP 172/89 H 09/11/20 22:58 Pulse Ox 99 09/11/20 22:19 - Orders/Labs/Meds Orders: Active Orders 24 hr Category Date Time Status EKG Documentation Completion [RC] STAT Care 09/11/20 21:00 Active Sodium Chloride 0.9% [Saline Flush] Med 09/11/20 21:08 Active 10 ml FLUSH ASDIRECTED PRN Sodium Chloride 0.9% [Saline Flush] Med 09/11/20 21:08 Active 2.5 ml FLUSH ASDIRECTED PRN Saline Lock Insert [OM.PC] Stat Oth 09/11/20 21:08 Ordered Medication Orders Sodium Chloride (Sodium Chloride 0.9% 10 Ml Syringe) 10 ml FLUSH ASDIRECTED PRN PRN Reason: Keep Vein Open Last Admin: 09/11/20 22:02 Dose: 10 ml Documented by: TWAN Sodium Chloride (Sodium Chloride 0.9% 2.5 Ml Syringe) 2.5 ml FLUSH ASDIRECTED PRN PRN Reason: Keep Vein Open Last Admin: 09/11/20 22:03 Dose: 2.5 ml Documented by: TWAN Labs: Laboratory Tests 09/11/20 09/11/20 09/11/20 Range/Units 21:33 21:33 21:33 WBC 6.93 (4.0-11.0) K/uL RBC 4.84 (4.30-5.90) M/uL Hgb 11.3 L (12.0-16.0) g/dL Hct 35.8 L (36.0-46.0) % MCV 74.0 L (80.0-98.0) fL MCH 23.3 L (27.0-32.0) pg MCHC 31.6 (31.0-37.0) g/dL RDW Std Deviation 41.4 (28.0-62.0) fl RDW Coeff of Patience 15 (11.0-15.0) % Plt Count 225 (150-400) K/uL Neut % (Auto) 71.2 (48.0-80.0) % Lymph % (Auto) 21.9 (16.0-40.0) % Luce % (Auto) 4.9 (0.0-15.0) % Eos % (Auto) 1.7 (0.0-7.0) % Baso % (Auto) 0.3 (0.0-1.5) % Neut # (Auto) 4.9 (1.4-5.7) K/uL Lymph # (Auto) 1.5 (0.6-2.4) K/uL Luce # (Auto) 0.3 (0.0-0.8) K/uL Eos # (Auto) 0.1 (0.0-0.7) K/uL Baso # (Auto) 0.0 (0.0-0.1) K/uL Nucleated RBC % 0.0 /100WBC Nucleated RBCs # 0 K/uL INR 1.08 Sodium 142 (136-145) mmol/L Potassium 3.9 (3.5-5.1) mmol/L Chloride 103 (98-107) mmol/L Carbon Dioxide 27.8 (21.0-32.0) mmol/L BUN 11 (7.0-18.0) mg/dL Creatinine 0.7 (0.6-1.0) mg/dL Est Cr Clr Drug Dosing 104.78 mL/min Estimated GFR (MDRD) > 60.0 ml/min Glucose 109 H (74-106) mg/dL Calcium 9.3 (8.5-10.1) mg/dL Total Bilirubin 0.4 (0.2-1.0) mg/dL AST 21 (15-37) IU/L ALT 18 (14-63) IU/L Alkaline Phosphatase 83 (46-116) U/L Troponin I < 0.050 (0.000-0.056) ng/mL Total Protein 8.3 H (6.4-8.2) g/dL Albumin 3.9 (3.4-5.0) g/dL Globulin 4.4 H (2.6-4.0) g/dL Albumin/Globulin Ratio 0.9 (0.9-1.6) Urine Color Urine Appearance Urine pH (5.0-8.0) Ur Specific [place] (1.001-1.035) Urine Protein (NEGATIVE) mg/dL Urine Glucose (UA) (NEGATIVE) mg/dL Urine Ketones (NEGATIVE) mg/dL Urine Occult Blood (NEGATIVE) Urine Nitrite (NEGATIVE) Urine Bilirubin (NEGATIVE) Urine Urobilinogen (<2.0) EU/dL Ur Leukocyte Esterase (NEGATIVE) Urine RBC (0-2/HPF) Urine WBC (0-5/HPF) Ur Epithelial Cells (NONE-FEW) Urine Bacteria (NEGATIVE) Urine Mucus (NONE-MOD) 09/11/20 Range/Units 22:31 WBC (4.0-11.0) K/uL RBC (4.30-5.90) M/uL Hgb (12.0-16.0) g/dL Hct (36.0-46.0) % MCV (80.0-98.0) fL MCH (27.0-32.0) pg MCHC (31.0-37.0) g/dL RDW Std Deviation (28.0-62.0) fl RDW Coeff of Patience (11.0-15.0) % Plt Count (150-400) K/uL Neut % (Auto) (48.0-80.0) % Lymph % (Auto) (16.0-40.0) % Luce % (Auto) (0.0-15.0) % Eos % (Auto) (0.0-7.0) % Baso % (Auto) (0.0-1.5) % Neut # (Auto) (1.4-5.7) K/uL Lymph # (Auto) (0.6-2.4) K/uL Luce # (Auto) (0.0-0.8) K/uL Eos # (Auto) (0.0-0.7) K/uL Baso # (Auto) (0.0-0.1) K/uL Nucleated RBC % /100WBC Nucleated RBCs # K/uL INR Sodium (136-145) mmol/L Potassium (3.5-5.1) mmol/L Chloride (98-107) mmol/L Carbon Dioxide (21.0-32.0) mmol/L BUN (7.0-18.0) mg/dL Creatinine (0.6-1.0) mg/dL Est Cr Clr Drug Dosing mL/min Estimated GFR (MDRD) ml/min Glucose (74-106) mg/dL Calcium (8.5-10.1) mg/dL Total Bilirubin (0.2-1.0) mg/dL AST (15-37) IU/L ALT (14-63) IU/L Alkaline Phosphatase (46-116) U/L Troponin I (0.000-0.056) ng/mL Total Protein (6.4-8.2) g/dL Albumin (3.4-5.0) g/dL Globulin (2.6-4.0) g/dL Albumin/Globulin Ratio (0.9-1.6) Urine Color YELLOW Urine Appearance CLEAR Urine pH 8.0 (5.0-8.0) Ur Specific [place] 1.015 (1.001-1.035) Urine Protein NEGATIVE (NEGATIVE) mg/dL Urine Glucose (UA) NEGATIVE (NEGATIVE) mg/dL Urine Ketones NEGATIVE (NEGATIVE) mg/dL Urine Occult Blood NEGATIVE (NEGATIVE) Urine Nitrite NEGATIVE (NEGATIVE) Urine Bilirubin NEGATIVE (NEGATIVE) Urine Urobilinogen 0.2 (<2.0) EU/dL Ur Leukocyte Esterase NEGATIVE (NEGATIVE) Urine RBC NONE SEEN (0-2/HPF) Urine WBC 0-1 (0-5/HPF) Ur Epithelial Cells RARE (NONE-FEW) Urine Bacteria 1+ H (NEGATIVE) Urine Mucus LIGHT (NONE-MOD) Meds: Medications Generic Name Dose Route Start Last Admin Trade Name Freq PRN Reason Stop Dose Admin Sodium Chloride 10 ml 09/11/20 21:08 09/11/20 22:02 Sodium Chloride 0.9% 10 Ml Syringe FLUSH 10 ml ASDIRECTED PRN Administration Keep Vein Open Sodium Chloride 2.5 ml 09/11/20 21:08 09/11/20 22:03 Sodium Chloride 0.9% 2.5 Ml Syringe FLUSH 2.5 ml ASDIRECTED PRN Administration Keep Vein Open Discontinued Medications Generic Name Dose Route Start Last Admin Trade Name Freq PRN Reason Stop Dose Admin Diphenhydramine HCl 50 mg 09/11/20 21:13 09/11/20 21:37 Diphenhydramine 50 Mg/Ml Sdv IVPUSH 09/11/20 21:14 50 mg ONETIME ONE Administration Lactated Ringer's 1,000 mls @ 999 mls/hr 09/11/20 21:12 09/11/20 21:37 Ringers, Lactated IV 09/11/20 22:12 999 mls/hr .BOLUS ONE Administration Ketorolac Tromethamine 30 mg 09/11/20 22:58 Ketorolac 30 Mg/Ml Sdv IVPUSH 09/11/20 22:59 ONETIME ONE Labetalol HCl 20 mg 09/11/20 21:19 09/11/20 21:34 Labetalol 100 Mg/20 Ml Mdv IVPUSH 09/11/20 21:20 20 mg ONETIME ONE Administration Protocol Metoclopramide HCl 10 mg 09/11/20 21:13 09/11/20 21:37 Metoclopramide 10 Mg/2 Ml Sdv IVPUSH 09/11/20 21:14 10 mg ONETIME ONE Administration - Re-Assessments/Exams Free Text/Narrative Re-Assessment/Exam: 09/11/20 22:56 I reexamined patient, her headache after Reglan and Benadryl improved to 5/10. She is sleeping soundly in no distress. I instructed her the importance of filling her prescription that I wrote for her 2 days ago for her blood pressure. CT head is resulted normal, will give IV Toradol 30 mg. Repeat blood pressure = 172/89 after 20 mg of labetalol. 09/12/20 0015 Her headache improved after toradol, she is currently stable for discharge. I performed a repeat exam and did not appreciate new abnormal findings. Patient exhibits improved blood pressure and has a normal gait on road test. I advised the patient to return to the ER for reevaluation if symptoms worsened, including fever, worsening pain, or any other worrisome symptoms. I instructed the patient to follow up with their PCP within 2-3 days. MEDICAL DECISION MAKING: I reviewed the patients past medical records, lab and radiographic findings. I discussed the case with the patient. My differential diagnosis included: Hypertensive emergency, preeclampsia. Patient has no ketones in the urine or transaminitis or blurry vision. I do not suspect preeclampsia. She was prescribed blood pressure medication 2 days ago but she did not fill it. She is taking labetalol and nifedipine but she requires additional blood pressure control. Today she presents with a headache, repeat CT head was performed which was unremarkable. Her headache is improved after IV Reglan Benadryl and Toradol. Her blood pressure improved after 20 mg of labetalol. She exhibits no other signs of endorgan damage from her hypertension. I do not suspect need for hospitalization at this time. Departure - Departure Time of Disposition: 00:16 Disposition: Home, Self-Care 01 Condition: Good Clinical Impression: Headache Hypertension Qualifiers: Hypertension type: unspecified Qualified Code(s): I10 - Essential (primary) hypertension - Discharge Information *PRESCRIPTION DRUG MONITORING PROGRAM REVIEWED*: Not Applicable *COPY OF PRESCRIPTION DRUG MONITORING REPORT IN PATIENT MARLENE: Not Applicable Instructions: Migraine Headache, [id number], Hypertension, Adult, [id number] Referrals: Reena Kinney MD [Primary Care Provider] - 3 Days Forms: ED Department Discharge Additional Instructions: The need for follow-up, as well as the timing and circumstances, are variable depending upon the specifics of your emergency department visit. If you don't have a primary care physician on staff, we will provide you with a referral. We always advise you to contact your personal physician following an emergency department visit to inform them of the circumstance of the visit and for follow-up with them and/or the need for any referrals to a consulting specialist. The emergency department will also refer you to a specialist when appropriate. This referral assures that you have the opportunity for follow-up care with a specialist. All of these measure are taken in an effort to provide you with optimal care, which includes your follow-up. Under all circumstances we always encourage you to contact your private physician who remains a resource for coordinating your care. When calling for follow-up care, please make the office aware that this follow-up is from your recent emergency room visit. If for any reason you are refused follow-up, please contact the [facility] Emergency Department at and asked to speak to the emergency department charge nurse. If you do not have a primary care doctor, please follow up with the clinics below within 3-5 days. [facility] - Primary Care [address] [place] [address] [id number] [place] [address] Sepsis Event Note (ED) - Evaluation Sepsis Screening Result: No Definite Risk - Focused Exam Vital Signs: Vital Signs Pulse Resp BP Pulse Ox 09/11/20 22:58 172/89 H 09/11/20 22:19 84 19 152/101 H 99 09/11/20 21:46 84 20 189/121 H 94 L 09/11/20 20:41 76 16 225/136 H 97 - My Orders Last 24 Hours: My Active Orders 09/11/20 21:00 EKG Documentation Completion [RC] STAT 09/11/20 21:08 Sodium Chloride 0.9% [Saline Flush] 10 ml FLUSH ASDIRECTED PRN Sodium Chloride 0.9% [Saline Flush] 2.5 ml FLUSH ASDIRECTED PRN Saline Lock Insert [OM.PC] Stat - Assessment/Plan Last 24 Hours: My Active Orders 09/11/20 21:00 EKG Documentation Completion [RC] STAT 09/11/20 21:08 Sodium Chloride 0.9% [Saline Flush] 10 ml FLUSH ASDIRECTED PRN Sodium Chloride 0.9% [Saline Flush] 2.5 ml FLUSH ASDIRECTED PRN Saline Lock Insert [OM.PC] Stat
[2020-09-11] MEDS ORDERED: Sodium Chloride 0.9% 2.5 ML Syringe FLUSH PRN (21:08)
[2020-09-11] MEDS ORDERED: Sodium Chloride 0.9% 10 ML Syringe FLUSH PRN (21:08)
[2020-09-11] MEDS ORDERED: Lactated Ringers 1,000 ML IV ONE (21:12)
[2020-09-11] MEDS ORDERED: diphenhydrAMINE 50 MG/ML SDV IVPUSH ONE (21:13)
[2020-09-11] MEDS ORDERED: Metoclopramide 10 MG/2 ML SDV IVPUSH ONE (21:13)
[2020-09-11] MEDS ORDERED: Labetalol 100 MG/20 ML MDV IVPUSH ONE (21:19)
[2020-09-11 22:05] LABS: BLOOD UREA NITROGEN,BUN 11 mg/dL (7.0-18.0); CARBON DIOXIDE,CO2 27.8 mmol/L (21.0-32.0); CHLORIDE,CL 103 mmol/L (98-107); GLUCOSE RANDOM 109 mg/dL (74-106); POTASSIUM,K 3.9 mmol/L (3.5-5.1); SODIUM,NA 142 mmol/L (136-145)
--- NOTE | 2020-09-11 22:06 | CR ---
For Patients: As a result of the Century Cures Act, medical imaging exams and procedure reports are released immediately into your electronic medical record. You may view this report before your referring provider. If you have questions, please contact your health care provider. INDICATION: HTN TECHNIQUE: Chest 1 view. COMPARISON: 03/23/20 FINDINGS: Cardiovascular and mediastinum: Heart size and vasculature are normal in caliber and appearance. Mediastinum is within normal limits. Lungs and pleural space: Lungs are clear. No sign of infiltrate or mass. No sign of pleural effusion. No pneumothorax. Bones and soft tissues: No significant findings. IMPRESSION: Unremarkable chest. Dictated by: Navjot Rice MD @ 09/11/2020 22:05:39 (Electronically Signed)
--- NOTE | 2020-09-11 22:26 | CT ---
INDICATION: Headache. Hypertensive emergency. TECHNIQUE: CT head without contrast. COMPARISON: 09/09/2020 FINDINGS: CSF spaces: Within normal limits for age. Brain parenchyma: The rincon-white differentiation is normal. No sign of mass, hemorrhage, or midline shift. Skull base and calvarium: The visualized paranasal sinuses and mastoid air cells demonstrate no acute or significant findings. The visualized orbits are grossly unremarkable. No skull fractures. IMPRESSION: No acute intracranial abnormality. Please note that all CT scans at this facility use dose modulation, iterative reconstruction, and/or weight-based dosing when appropriate to reduce radiation dose to as low as reasonably achievable. Dictated by Navjot Chin MD @ 09/11/2020 10:26:[address] Navjot Chin @ Sep 11 2020 10:26PM
[2020-09-11] MEDS ORDERED: Ketorolac 30 MG/ML SDV IVPUSH ONE (22:58)
[2020-09-12 00:30] VITALS: BP 151/93; PULSE 82
== END 2020-09-12 00:30 | disposition home or self-care (01) ==
LOC: MW.ED 20:25
DX: I10 Essential (primary) hypertension (principal); E66.9 Obesity, unspecified; Z68.38 Body mass index [BMI] 38.0-38.9, adult; Z79.899 Other long term (current) drug therapy
CPT/HCPCS: 36415; 70450; 71045; 80053; 81001; 84484; 85025; 85610; 93005; 96374; 96375; 99284; J1200; J2765; J3490; J7120

== ENCOUNTER 2021-09-11 16:34 | Emergency (ER) | payer BC ==
[2021-09-11] MEDS ORDERED: diphenhydrAMINE 50 MG/ML SDV IVPUSH ONE (17:47)
[2021-09-11] MEDS ORDERED: Ketorolac 30 MG/ML SDV IVPUSH ONE (17:47)
[2021-09-11] MEDS ORDERED: Metoclopramide 10 MG/2 ML SDV IVPUSH ONE (17:47)
[2021-09-11] MEDS ORDERED: Labetalol 100 MG/20 ML MDV IVPUSH ONE (17:48)
[2021-09-11 20:29] VITALS: BP 138/82; PULSE 84
== END 2021-09-11 20:27 | disposition home or self-care (01) ==
LOC: MW.ED 16:34
DX: R51.9 Headache, unspecified (principal); I10 Essential (primary) hypertension; E66.9 Obesity, unspecified; Z68.35 Body mass index [BMI] 35.0-35.9, adult
CPT/HCPCS: 96374; 96375; 99283; J1200; J1885; J2765; J3490

== ENCOUNTER 2022-03-27 21:35 | Emergency (ER) | payer BC ==
[2022-03-27 22:28] VITALS: BP 216/114
[2022-03-27] MEDS ORDERED: Lactated Ringers 1,000 ML IV STA (22:30)
[2022-03-27 22:42] LABS: CORONAVIRUS COVID-19 NAA NEGATIVE (NEGATIVE); INFLUENZA A NAA NEGATIVE (NEGATIVE); INFLUENZA B NAA NEGATIVE (NEGATIVE); RESPIRATORY SYNCYTIAL VIR NAA NEGATIVE (NEGATIVE)
[2022-03-27 23:39] LABS: CARBON DIOXIDE,CO2 24.1 mmol/L (21.0-32.0); POTASSIUM,K 3.3 mmol/L (3.5-5.1)
[2022-03-27] MEDS ORDERED: Acetaminophen 500 MG Tab PO ONE (23:42)
[2022-03-28] MEDS ORDERED: diphenhydrAMINE 50 MG/ML SDV IVPUSH ONE (00:32)
[2022-03-28] MEDS ORDERED: Prochlorperazine 10 MG/2 ML SDV IVPUSH ONE (00:32)
[2022-03-28] MEDS ORDERED: Penicillin G Benzathine 1,200,000 Units/2 ML Syringe IM ONE (00:48)
[2022-03-28] MEDS ORDERED: Dexamethasone 4 MG/ML SDV IVPUSH ONE (00:49)
[2022-03-28] MEDS ORDERED: Ketorolac 30 MG/ML SDV IVPUSH ONE (00:49)
[2022-03-28 02:16] VITALS: PULSE 69
== END 2022-03-28 02:15 | disposition home or self-care (01) ==
LOC: MW.ED 21:35
DX: G43.909 Migraine, unspecified, not intractable, without status migrainosus (principal); J02.0 Streptococcal pharyngitis; I10 Essential (primary) hypertension; E66.9 Obesity, unspecified; Z68.38 Body mass index [BMI] 38.0-38.9, adult; Z20.822 Contact with and (suspected) exposure to COVID-19
CPT/HCPCS: 0241U; 36415; 70450; 80053; 84484; 84703; 85025; 86308; 87651; 93005; 96361; 96372; 96374; 96375; 99284; A9270; J0561; J0780; J1100; J1200; J1885; J7120

== ENCOUNTER 2022-12-21 18:05 | Emergency (ER) | payer BC ==
[2022-12-21] MEDS ORDERED: Sodium Chloride 0.9% 10 ML Syringe FLUSH PRN (18:34)
[2022-12-21] MEDS ORDERED: Sodium Chloride 0.9% 2.5 ML Syringe FLUSH PRN (18:34)
[2022-12-21] MEDS ORDERED: Labetalol 100 MG/20 ML MDV IVPUSH STA ×2 (18:37→19:43)
[2022-12-21 18:43] LABS: BASOPHILS ABSOLUTE AUTO 0.05 K/uL (0.00-0.20); BASOPHILS PERCENT AUTO 0.5 % (0.0-1.0); EOSINOPHILS ABSOLUTE AUTO 0.14 K/uL (0.00-0.45); EOSINOPHILS PERCENT AUTO 1.5 % (0.0-6.0); HEMATOCRIT 32.4 % (37.0-47.0); HEMOGLOBIN 10.4 g/dL (12.0-16.0); IMMATURE GRAN ABSOLUTE AUTO 0.02 K/uL (0.00-0.05); IMMATURE GRAN PERCENT AUTO 0.2 % (0.0-0.4); LYMPHOCYTES ABSOLUTE AUTO 2.51 K/uL (1.00-4.80); LYMPHOCYTES PERCENT AUTO 26.6 % (24.0-44.0); MEAN CORPUSCULAR HGB CONC 32.1 g/dL (32.0-36.0); MEAN CORPUSCULAR VOLUME 68.6 fL (83.0-99.0); MONOCYTES ABSOLUTE AUTO 0.73 K/uL (0.00-0.80); MONOCYTES PERCENT AUTO 7.7 % (0.0-8.0); NEUTROPHILS PERCENT AUTO 63.5 % (41.0-71.0); PLATELET COUNT,PLT 283 K/uL (150-400); RED BLOOD CELL COUNT 4.72 M/uL (4.10-5.30); WHITE BLOOD CELL COUNT,WBC 9.45 K/uL (3.9-11.3)
[2022-12-21 19:16] LABS: A/G RATIO 0.8 (0.9-1.6); ALBUMIN 3.6 g/dL (3.4-5.0); BILIRUBIN TOTAL 0.3 mg/dL (0.2-1.0); CALCIUM 8.7 mg/dL (8.5-10.1); CARBON DIOXIDE,CO2 25.9 mmol/L (21.0-32.0); CREATININE 0.9 mg/dL (0.6-1.0); EST CRCL DRUG DOSING (CG) 79.25 mL/min; POTASSIUM,K 3.3 mmol/L (3.5-5.1); PROTEIN TOTAL,TP 8.3 g/dL (6.4-8.2)
[2022-12-21 19:23] LABS: APPEARANCE,URINE CLEAR; BILIRUBIN,URINE NEGATIVE (NEGATIVE); COLOR,URINE YELLOW; GLUCOSE,URINE NEGATIVE (NEGATIVE); KETONES,URINE NEGATIVE (NEGATIVE); LEUKOCYTE ESTERASE,URINE NEGATIVE (NEGATIVE); NITRITE,URINE NEGATIVE (NEGATIVE); OCCULT BLOOD,URINE TRACE-INTACT (NEGATIVE); PH,URINE 6.5 (5.0-8.0); PROTEIN,URINE NEGATIVE (NEGATIVE); UROBILINOGEN,URINE 0.2 EU/dL (<2.0)
[2022-12-21 19:27] LABS: BACTERIA,URINE RARE (NEGATIVE); EPITHELIAL CELLS,URINE RARE (NONE-FEW); RBC,URINE 0-2 (0-2/HPF); WBC,URINE 0-1 (0-5/HPF)
[2022-12-21 19:41] LABS: CREATININE,URINE RAND 13.5 mg/dL
[2022-12-21 19:52] LABS: PROTEIN,URINE RANDOM < 6.0 mg/dL (<11.9)
[2022-12-21 20:08] LABS: CORONAVIRUS COVID-19 NAA NEGATIVE (NEGATIVE); INFLUENZA A NAA NEGATIVE (NEGATIVE); INFLUENZA B NAA NEGATIVE (NEGATIVE)
[2022-12-21] MEDS ORDERED: NIFEdipine 10 MG Cap PO STA (20:46)
[2022-12-21] MEDS ORDERED: NIFEdipine 30 MG Tab.ER ONE (21:23)
[2022-12-22 03:54] VITALS: BP 133/79; PULSE 94
== END 2022-12-21 23:05 | disposition home or self-care (01) ==
LOC: MW.ED 18:05
DX: O10.919 Unspecified pre-existing hypertension complicating pregnancy, unspecified trimester (principal); O24.419 Gestational diabetes mellitus in pregnancy, unspecified control; O99.210 Obesity complicating pregnancy, unspecified trimester; Z20.822 Contact with and (suspected) exposure to COVID-19; Z79.899 Other long term (current) drug therapy; Z3A.00 Weeks of gestation of pregnancy not specified
CPT/HCPCS: 0240U; 36415; 80053; 81001; 82570; 83690; 83735; 84156; 84484; 84702; 85025; 93005; 96374; 96376; 99284; A9270; J3490; 93010

== ENCOUNTER 2023-02-27 15:01 | Emergency (ER) | payer BC ==
[2023-02-27] MEDS ORDERED: Acetaminophen 325 MG Tab PO ONE (15:21)
[2023-02-27] MEDS ORDERED: Labetalol 100 MG/20 ML MDV IVPUSH ONE (15:21)
[2023-02-27] MEDS ORDERED: diphenhydrAMINE 50 MG/ML SDV IVPUSH ONE (15:21)
[2023-02-27] MEDS ORDERED: Prochlorperazine 10 MG/2 ML SDV IVPUSH ONE (15:22)
[2023-02-27 15:28] LABS: BASOPHILS ABSOLUTE AUTO 0.02 K/uL (0.00-0.20); BASOPHILS PERCENT AUTO 0.4 % (0.0-1.0); EOSINOPHILS ABSOLUTE AUTO 0.12 K/uL (0.00-0.45); EOSINOPHILS PERCENT AUTO 2.2 % (0.0-6.0); HEMATOCRIT 34.5 % (37.0-47.0); HEMOGLOBIN 10.9 g/dL (12.0-16.0); IMMATURE GRAN ABSOLUTE AUTO 0.01 K/uL (0.00-0.05); IMMATURE GRAN PERCENT AUTO 0.2 % (0.0-0.4); LYMPHOCYTES ABSOLUTE AUTO 2.64 K/uL (1.00-4.80); LYMPHOCYTES PERCENT AUTO 48.8 % (24.0-44.0); MEAN CORPUSCULAR HEMOGLOBIN 22.1 pg (28.0-32.0); MEAN CORPUSCULAR HGB CONC 31.6 g/dL (32.0-36.0); MEAN CORPUSCULAR VOLUME 69.8 fL (83.0-99.0); MEAN PLATELET VOLUME 10.2 fL (9.4-12.3); MONOCYTES ABSOLUTE AUTO 0.41 K/uL (0.00-0.80); MONOCYTES PERCENT AUTO 7.6 % (0.0-8.0); NEUTROPHILS ABSOLUTE AUTO 2.21 K/uL (1.80-7.70); NEUTROPHILS PERCENT AUTO 40.8 % (41.0-71.0); PLATELET COUNT,PLT 257 K/uL (150-400); RED BLOOD CELL COUNT 4.94 M/uL (4.10-5.30); WHITE BLOOD CELL COUNT,WBC 5.41 K/uL (3.9-11.3)
[2023-02-27] MEDS ORDERED: Lactated Ringers 1,000 ML IV SCH (15:30)
[2023-02-27 15:59] LABS: APPEARANCE,URINE CLEAR; BILIRUBIN,URINE NEGATIVE (NEGATIVE); COLOR,URINE YELLOW; GLUCOSE,URINE NEGATIVE (NEGATIVE); KETONES,URINE NEGATIVE (NEGATIVE); LEUKOCYTE ESTERASE,URINE NEGATIVE (NEGATIVE); NITRITE,URINE NEGATIVE (NEGATIVE); OCCULT BLOOD,URINE NEGATIVE (NEGATIVE); PH,URINE 6.5 (5.0-8.0); PROTEIN,URINE NEGATIVE (NEGATIVE); UROBILINOGEN,URINE 0.2 EU/dL (<2.0)
[2023-02-27 16:02] LABS: A/G RATIO 0.8 (0.9-1.6); ALBUMIN 3.5 g/dL (3.4-5.0); BILIRUBIN TOTAL 0.4 mg/dL (0.2-1.0); CALCIUM 9.1 mg/dL (8.5-10.1); CARBON DIOXIDE,CO2 27.7 mmol/L (21.0-32.0); CREATININE 0.9 mg/dL (0.6-1.0); EST CRCL DRUG DOSING (CG) 79.25 mL/min; POTASSIUM,K 4.1 mmol/L (3.5-5.1); PROTEIN TOTAL,TP 7.8 g/dL (6.4-8.2)
[2023-02-27] MEDS ORDERED: Labetalol 100 MG/20 ML MDV IVPUSH STA (16:42)
[2023-02-27 18:26] VITALS: BP 186/109; PULSE 77
[2023-02-27] MEDS ORDERED: Hydrochlorothiazide 12.5 MG Cap PO STA (18:28)
== END 2023-02-27 18:50 | disposition home or self-care (01) ==
LOC: MW.ED 15:01
DX: I10 Essential (primary) hypertension (principal); Z79.899 Other long term (current) drug therapy
CPT/HCPCS: 36415; 70450; 80053; 81003; 84484; 84703; 85025; 93005; 96374; 96375; 96376; 99284; A9270; J0780; J1200; J1920; J7120; 93010

== ENCOUNTER 2023-11-26 04:11 | Emergency (ER) | payer BC ==
[2023-11-26 04:25] LABS: BASOPHILS ABSOLUTE AUTO 0.04 K/uL (0.00-0.20); BASOPHILS PERCENT AUTO 0.5 % (0.0-1.0); EOSINOPHILS ABSOLUTE AUTO 0.19 K/uL (0.00-0.45); EOSINOPHILS PERCENT AUTO 2.5 % (0.0-6.0); HEMATOCRIT 36.5 % (37.0-47.0); HEMOGLOBIN 11.3 g/dL (12.0-16.0); IMMATURE GRAN ABSOLUTE AUTO 0.02 K/uL (0.00-0.05); IMMATURE GRAN PERCENT AUTO 0.3 % (0.0-0.4); LYMPHOCYTES ABSOLUTE AUTO 3.28 K/uL (1.00-4.80); LYMPHOCYTES PERCENT AUTO 43.6 % (24.0-44.0); MEAN CORPUSCULAR HEMOGLOBIN 22.3 pg (28.0-32.0); MEAN CORPUSCULAR VOLUME 72.1 fL (83.0-99.0); MEAN PLATELET VOLUME 11.1 fL (9.4-12.3); MONOCYTES ABSOLUTE AUTO 0.55 K/uL (0.00-0.80); MONOCYTES PERCENT AUTO 7.3 % (0.0-8.0); NEUTROPHILS ABSOLUTE AUTO 3.45 K/uL (1.80-7.70); NEUTROPHILS PERCENT AUTO 45.8 % (41.0-71.0); PLATELET COUNT,PLT 352 K/uL (150-400); RED BLOOD CELL COUNT 5.06 M/uL (4.10-5.30); WHITE BLOOD CELL COUNT,WBC 7.53 K/uL (3.9-11.3)
[2023-11-26] MEDS: Acetaminophen 500 MG Tab PO ONE (04:34)
[2023-11-26] MEDS ORDERED: hydrALAZINE 20 MG/ML SDV IVPUSH ONE (04:48)
[2023-11-26 05:00] LABS: A/G RATIO 0.9 (0.9-1.6); ALBUMIN 3.9 g/dL (3.4-5.0); BILIRUBIN TOTAL 0.3 mg/dL (0.2-1.0); CALCIUM 9.5 mg/dL (8.5-10.1); CARBON DIOXIDE,CO2 33.5 mmol/L (21.0-32.0); EST CRCL DRUG DOSING (CG) 70.66 mL/min; POTASSIUM,K 3.1 mmol/L (3.5-5.1); PROTEIN TOTAL,TP 8.5 g/dL (6.4-8.2)
[2023-11-26] MEDS: Sodium Chloride 0.9% 10 ML Syringe FLUSH PRN (05:03)
[2023-11-26] MEDS: hydrALAZINE 20 MG/ML SDV IVPUSH ONE (05:03)
[2023-11-26 05:43] VITALS: BP 213/132; PULSE 80
== END 2023-11-26 06:30 | disposition left against medical advice (07) ==
LOC: MW.ED 04:11
DX: R07.9 Chest pain, unspecified (principal); M54.2 Cervicalgia; I10 Essential (primary) hypertension; Z79.899 Other long term (current) drug therapy
CPT/HCPCS: 36415; 80053; 82550; 83690; 83735; 83880; 84484; 84703; 85025; 93005; 96374; 99285; J0360; J3490

== ENCOUNTER 2023-11-26 14:42 | Emergency (ER) | payer BC ==
[2023-11-26] MEDS: Sodium Chloride 0.9% 1,000 ML IV SCH (16:00)
[2023-11-26] MEDS: Metoclopramide 10 MG/2 ML SDV IVPUSH ONE (16:04)
[2023-11-26] MEDS: Acetaminophen 500 MG Tab PO ONE (16:05)
[2023-11-26] MEDS: diphenhydrAMINE 50 MG/ML SDV IVPUSH ONE (16:05)
[2023-11-26 18:46] VITALS: BP 226/121; PULSE 80
== END 2023-11-26 18:46 | disposition home or self-care (01) ==
LOC: MW.ED 14:42
DX: R51.9 Headache, unspecified (principal); I10 Essential (primary) hypertension; Z79.899 Other long term (current) drug therapy
CPT/HCPCS: 96361; 96374; 96375; 99283; A9270; J1200; J2765; J7030

== ENCOUNTER 2023-12-19 01:24 | Emergency (ER) | payer BC ==
[2023-12-19] MEDS ORDERED: Sodium Chloride 0.9% 10 ML Syringe FLUSH PRN (01:48)
[2023-12-19] MEDS ORDERED: Sodium Chloride 0.9% 2.5 ML Syringe FLUSH PRN (01:48)
[2023-12-19] MEDS: Acetaminophen 500 MG Tab PO ONE (01:58)
[2023-12-19] MEDS: Metoclopramide 10 MG/2 ML SDV IVPUSH ONE (01:59)
[2023-12-19] MEDS: diphenhydrAMINE 50 MG/ML SDV IVPUSH ONE (01:59)
[2023-12-19 03:20] VITALS: BP 168/100; PULSE 82
== END 2023-12-19 03:13 | disposition home or self-care (01) ==
LOC: MW.ED 01:24
DX: I10 Essential (primary) hypertension (principal); G43.909 Migraine, unspecified, not intractable, without status migrainosus; Z79.84 Long term (current) use of oral hypoglycemic drugs; Z79.899 Other long term (current) drug therapy; Z75.8 Other problems related to medical facilities and other health care
CPT/HCPCS: 96374; 96375; 99283; A9270; J1200; J2765

== ENCOUNTER 2024-02-28 01:20 | Emergency (ER) | payer OTHER, BC ==
[2024-02-28] MEDS: Acetaminophen/HYDROcodone 325-10 MG Tab PO STA (02:31)
[2024-02-28 03:48] VITALS: BP 195/127; PULSE 73
== END 2024-02-28 03:52 | disposition home or self-care (01) ==
LOC: MW.ED 01:20
DX: S43.402A Unspecified sprain of left shoulder joint, initial encounter (principal); I10 Essential (primary) hypertension; Z79.899 Other long term (current) drug therapy; Z79.84 Long term (current) use of oral hypoglycemic drugs; W10.9XXA Fall (on) (from) unspecified stairs and steps, initial encounter; Y99.0 Civilian activity done for income or pay
CPT/HCPCS: 72040; 73030; 73070; 99283; A9270

== ENCOUNTER 2024-06-05 04:12 | Emergency (ER) | payer BC ==
[2024-06-05] MEDS: diphenhydrAMINE 50 MG/ML SDV IVPUSH ONE (04:38)
[2024-06-05] MEDS: Sodium Chloride 0.9% 1,000 ML IV ONE (04:38)
[2024-06-05] MEDS ORDERED: Sodium Chloride 0.9% 2.5 ML Syringe FLUSH PRN (04:38)
[2024-06-05] MEDS: droPERidol 2.5 MG/ML SDV IVPUSH ONE (04:38)
[2024-06-05] MEDS ORDERED: Sodium Chloride 0.9% 20 ML SDV IV PRN (04:38)
[2024-06-05] MEDS ORDERED: Sodium Chloride 0.9% 10 ML Syringe FLUSH PRN (04:38)
[2024-06-05 04:51] LABS: BASOPHILS ABSOLUTE AUTO 0.05 K/uL (0.00-0.20); BASOPHILS PERCENT AUTO 0.6 % (0.0-1.0); EOSINOPHILS ABSOLUTE AUTO 0.21 K/uL (0.00-0.45); EOSINOPHILS PERCENT AUTO 2.5 % (0.0-6.0); HEMATOCRIT 35.5 % (37.0-47.0); HEMOGLOBIN 11.4 g/dL (12.0-16.0); IMMATURE GRAN ABSOLUTE AUTO 0.02 K/uL (0.00-0.05); IMMATURE GRAN PERCENT AUTO 0.2 % (0.0-0.4); LYMPHOCYTES ABSOLUTE AUTO 3.74 K/uL (1.00-4.80); LYMPHOCYTES PERCENT AUTO 44.8 % (24.0-44.0); MEAN CORPUSCULAR HEMOGLOBIN 23.1 pg (28.0-32.0); MEAN CORPUSCULAR HGB CONC 32.1 g/dL (32.0-36.0); MONOCYTES ABSOLUTE AUTO 0.65 K/uL (0.00-0.80); MONOCYTES PERCENT AUTO 7.8 % (0.0-8.0); NEUTROPHILS ABSOLUTE AUTO 3.68 K/uL (1.80-7.70); NEUTROPHILS PERCENT AUTO 44.1 % (41.0-71.0); PLATELET COUNT,PLT 282 K/uL (150-400); RED BLOOD CELL COUNT 4.93 M/uL (4.10-5.30); WHITE BLOOD CELL COUNT,WBC 8.35 K/uL (3.9-11.3)
[2024-06-05 04:59] LABS: ALBUMIN 4.2 g/dL (3.4-5.0); BILIRUBIN TOTAL 0.3 mg/dL (0.2-1.0); CALCIUM 8.7 mg/dL (8.5-10.1); CARBON DIOXIDE,CO2 26.7 mmol/L (21.0-32.0); CREATININE 0.9 mg/dL (0.6-1.0); EST CRCL DRUG DOSING (CG) 94.35 mL/min; POTASSIUM,K 3.2 mmol/L (3.5-5.1); PROTEIN TOTAL,TP 8.3 g/dL (6.4-8.2)
[2024-06-05] MEDS: hydrALAZINE 20 MG/ML SDV IVPUSH ONE (05:52)
[2024-06-05] MEDS: Labetalol 100 MG/20 ML MDV IVPUSH ONE (06:20)
[2024-06-05 06:38] VITALS: BP 178/106; PULSE 86
== END 2024-06-05 06:51 | disposition home or self-care (01) ==
LOC: MW.ED 04:12
DX: R51.9 Headache, unspecified (principal); I10 Essential (primary) hypertension; Z79.899 Other long term (current) drug therapy
CPT/HCPCS: 36415; 80053; 84703; 85025; 96361; 96374; 96375; 99283; J0360; J1200; J1790; J1920; J7030